=== PATIENT | female | born 1945 ===

== ENCOUNTER 2017-03-10 13:00 | Emergency (ER) | payer MEDICARE, MEDICAID ==
[2017-03-10 13:00] VITALS: BMI 26.2
[2017-03-10 13:08] VITALS: RESP 18
[2017-03-10] MEDS ORDERED: Sodium Chloride 0.9% 1,000 ML IV ONE (13:39)
[2017-03-10] MEDS ORDERED: DiphenhydrAMINE 50 mg/ml Inj IVP STA (13:40)
[2017-03-10] MEDS ORDERED: DiphenhydrAMINE 50 mg/ml Inj ONE (14:17)
[2017-03-10] MEDS ORDERED: Sodium Chloride 0.9% 100 ML ONE (14:17)
[2017-03-10 14:40] LABS: BASO % 0.8 % (0.0-2.0); EOS # 0.1 K/uL (0.0-0.7); EOS % 1.9 % (0.0-4.0); HEMATOCRIT 36.1 % (34.0-47.0); LYMPH # 0.8 K/uL (1.0-4.3); LYMPH % 16.9 % (20.0-40.0); MEAN CELL VOLUME 89.8 fL (81.0-99.0); MEAN CORPUSCULAR HEMOGLOBIN 30.8 pg (27.0-31.0); MEAN CORPUSCULAR HGB CONC 34.3 g/dL (33.0-37.0); MEAN PLATELET VOLUME 8.6 fL (7.2-11.7); MONO # 0.2 K/uL (0.0-0.8); MONO % 4.8 % (0.0-10.0); RED CELL DISTRIBUTION WIDTH 12.5 % (11.5-14.5); WHITE BLOOD COUNT 4.8 K/uL (4.8-10.8)
[2017-03-10 14:54] LABS: CHLORIDE 99 mmol/L (98-107)
[2017-03-10 14:55] LABS: POTASSIUM 4.2 mmol/L (3.6-5.2); SODIUM 136 mmol/L (132-148)
[2017-03-10 14:57] LABS: ALB/GLOB RATIO 1.3 (1.0-2.1); ALKALINE PHOSPHATASE 79 U/L (38-126); AST/SGOT 26 U/L (14-36); BILIRUBIN,TOTAL 2.4 mg/dL (0.2-1.3); CARBON DIOXIDE 26 mmol/L (22-30); GFR AFRICAN-AMERICAN > 60
[2017-03-10 14:58] LABS: ALT/SGPT 16 U/L (9-52); BLOOD UREA NITROGEN 15 mg/dL (7-17); GLUCOSE,RANDOM 93 mg/dL (65-105)
--- NOTE | 2017-03-10 15:22 | C.PDOC ---
Time Seen by Provider: 03/10/17 13:23 Chief Complaint (Nursing): Allergic Reaction History Per: Patient Onset/Duration Of Symptoms: Days (1) Current Symptoms Are (Timing): Still Present Possible Cause: Food (after eating Pork last night?), Other (after moving to her daughter's house who has a cat?) Associated Symptoms: Skin Rash, Itching, Other (diarrhea) Home/EMS Treatment: None Severity: Moderate Additional History Per: Prior Records Past Medical History Reviewed: Historical Data, Nursing Documentation, Vital Signs Vital Signs: Last Vital Signs Temp 98 F 03/10/17 13:05 Pulse 77 03/10/17 13:05 Resp 18 03/10/17 13:05 BP 145/96 H 03/10/17 13:05 Pulse Ox 97 03/10/17 13:05 - Medical History PMH: Anxiety, Arthritis, Depression, HTN, Hypercholesterolemia Surgical History: No Surg Hx Family History: States: Unknown Family Hx - Social History Hx Alcohol Use: No Hx Substance Use: No - Immunization History Hx Tetanus Toxoid Vaccination: No Hx Influenza Vaccination: No Hx Pneumococcal Vaccination: No Review Of Systems Except As Marked, All Systems Reviewed And Found Negative. Constitutional: Negative for: Fever Eyes: Positive for: Redness (itching) ENT: Positive for: Other (sneezing). Negative for: Throat Swelling Cardiovascular: Negative for: Chest Pain Respiratory: Positive for: Cough. Negative for: Shortness of Breath Gastrointestinal: Positive for: Diarrhea. Negative for: Vomiting, Abdominal Pain, Melena, Hematochezia, Hematemesis Musculoskeletal: Negative for: Neck Pain Skin: Positive for: Rash Neurological: Negative for: Weakness, Numbness, Seizures, Altered Mental Status Physical Exam - Physical Exam Appears: Non-toxic, No Acute Distress Skin: Warm, Dry, Rash (diffuse urticaria) Head: Atraumatic, Normacephalic Eye(s): bilateral: PERRL, EOMI, Eyelid Inflammation (due to rubbing eyes) Oral Mucosa: Moist, No Drooling, No Trismus Tongue: Normal Appearing Throat: No Drooling, No Mass Neck: Normal ROM, Supple Lymphatic: No Adenopathy Cardiovascular: Rhythm Regular Respiratory: Normal Breath Sounds, No Accessory Muscle Use Gastrointestinal/Abdominal: Soft, No Tenderness Back: No CVA Tenderness Extremity: Normal ROM, No Pedal Edema, No Calf Tenderness Neurological/Psych: Oriented x3, Normal Speech, Cerebellar Signs, Normal Sensation ED Course And Treatment - Laboratory Results Result Diagrams: 03/10/17 14:35 03/10/17 14:35 Lab Interpretation: No Acute Changes O2 Sat by Pulse Oximetry: 97 Pulse Ox Interpretation: Normal Progress Note: Pt feels better and wants to go home. Itching resolved. Reassessment Condition: Improved Progress - Interventions Interventions:: Observation, Intravenous fluid - Medications Administered Intravenous: Antihistamine (H-1), H-2 desmond - Data Reviewed Data Reviewed: Lab, Old records - Patient Status Patient status: Mostly improved - Continuity of Care Discussed patient case with:: Patient, ED Nurse - Patient Plan Patient Plan: Discharge, F/U with PCP Disposition Counseled Patient/Family Regarding: Studies Performed, Diagnosis, Need For Followup, Rx Given - Disposition Referrals: Salinas Go MD [Staff Provider] - Disposition: HOME/ ROUTINE Disposition Time: 15:24 Condition: IMPROVED Additional Instructions: Follow up with your doctor for further evaluation and treatment. Return to the ER if you develop fever, vomiting, abdominal pain, throat swelling, shortness of breath, worsening of symptoms or if you have any other concerns. Prescriptions: Loratadine [Claritin] 10 mg PO DAILY PRN #30 tab PRN Reason: Allergy Symptoms Instructions: Allergies (ED) - Clinical Impression Clinical Impression: Urticaria, Diarrhea
[2017-03-10 15:56] VITALS: BP 131/82; PULSE 67; TEMP 98.2; O2SAT 96
== END 2017-03-10 15:50 | disposition home or self-care (01) ==
LOC: C.ER 13:00
DX: L50.9 Urticaria, unspecified (principal); R19.7 Diarrhea, unspecified
CPT/HCPCS: 80053; 85025; 96361; 96374; 96375; 99285; J1200; J7040

== ENCOUNTER 2018-06-26 13:08 | Inpatient (IN) | payer MEDICARE, MEDICAID ==
[2018-06-26 13:08] VITALS: BMI 26.2
--- NOTE | 2018-06-26 13:59 | RAD ---
HISTORY: SOB COMPARISON: None available TECHNIQUE: Chest, one view. FINDINGS: Examination limited by habitus. LUNGS: Mild interstitial prominence may reflect edema or infection. Linear atelectasis, left mid lung zone. Trace fluid in the right fissure. Small bilateral pleural effusions. No definite pneumothorax. Please note that chest x-ray has limited sensitivity for the detection of pulmonary masses. CARDIOVASCULAR: Cardiomegaly. OSSEOUS STRUCTURES: Degenerative changes. Osseous demineralization. VISUALIZED UPPER ABDOMEN: Elevation of the right hemidiaphragm. OTHER FINDINGS: None. IMPRESSION: Cardiomegaly. Mild interstitial prominence may reflect edema or infection. Linear atelectasis, left mid lung zone. Trace fluid in the right fissure. Small bilateral pleural effusions.
[2018-06-26 14:01] LABS: BASO % 0.9 % (0.0-2.0); EOS # 0.1 K/uL (0.0-0.7); EOS % 2.9 % (0.0-4.0); HEMOGLOBIN 11.5 g/dL (11.0-16.0); LYMPH # 1.2 K/uL (1.0-4.3); LYMPH % 25.4 % (20.0-40.0); MEAN CELL VOLUME 93.3 fL (81.0-99.0); MEAN CORPUSCULAR HEMOGLOBIN 31.8 pg (27.0-31.0); MEAN CORPUSCULAR HGB CONC 34.1 g/dL (33.0-37.0); MEAN PLATELET VOLUME 8.7 fL (7.2-11.7); MONO # 0.3 K/uL (0.0-0.8); NEUT % 63.8 % (50.0-75.0); RBC 3.62 Mil/uL (3.80-5.20); RED CELL DISTRIBUTION WIDTH 13.3 % (11.5-14.5); WHITE BLOOD COUNT 4.7 K/uL (4.8-10.8)
[2018-06-26 14:09] LABS: INR 1.2; PROTHROMBIN TIME 12.7 SECONDS (9.7-12.2)
[2018-06-26 14:20] LABS: ALB/GLOB RATIO 1.3 (1.0-2.1); ALBUMIN 3.8 g/dL (3.5-5.0); ALT/SGPT 72 U/L (9-52); AST/SGOT 50 U/L (14-36); BLOOD UREA NITROGEN 9 mg/dL (7-17); CALCIUM 8.5 mg/dl (8.6-10.4); GFR NON-AFRICAN AMERICAN > 60
[2018-06-26 14:30] LABS: B-TYPE NATRIURETIC PEPTIDE 1540 pg/mL (0-900)
[2018-06-26 14:53] LABS: SQUAMOUS EPITHIAL 1 /hpf (0-5); URINE BACTERIA OCC (<OCC); URINE BILIRUBIN NEGATIVE (NEGATIVE); URINE BLOOD 1+ (NEGATIVE); URINE CLARITY Clear (Clear); URINE COLOR Straw (YELLOW); URINE GLUCOSE (UA) NORMAL (Normal); URINE LEUKOCYTE ESTERASE 3+ Leu/uL (Negative); URINE PROTEIN NEGATIVE (NEGATIVE); URINE UROBILINOGEN NORMAL mg/dL (0.2-1.0)
--- NOTE | 2018-06-26 14:53 | C.PDOC ---
History Of Present Illness 72 y/o female presents to ED c/o chest pain and shortness of breath for the last 2 days. Denies nausea, vomiting, or other complaints. Time Seen by Provider: 06/26/18 13:27 Chief Complaint (Nursing): Shortness Of Breath History Per: Patient History/Exam Limitations: no limitations Past Medical History Reviewed: Historical Data, Nursing Documentation, Vital Signs Vital Signs: Last Vital Signs Temp 98.1 F 06/26/18 16:12 Pulse 75 06/26/18 16:12 Resp 18 06/26/18 16:12 BP 120/81 06/26/18 16:12 Pulse Ox 97 06/26/18 16:15 - Medical History PMH: Anxiety, Arthritis, Depression, HTN, Hypercholesterolemia Family History: States: Unknown Family Hx - Social History Hx Alcohol Use: No Hx Substance Use: No - Immunization History Hx Tetanus Toxoid Vaccination: No Hx Influenza Vaccination: No Hx Pneumococcal Vaccination: No Review Of Systems Except As Marked, All Systems Reviewed And Found Negative. Constitutional: Negative for: Fever, Chills Cardiovascular: Positive for: Chest Pain. Negative for: Palpitations Respiratory: Positive for: Shortness of Breath. Negative for: Cough Gastrointestinal: Negative for: Nausea, Vomiting Physical Exam - Physical Exam Appears: Non-toxic, No Acute Distress Skin: Normal Color, Warm, Dry Head: Atraumatic, Normacephalic Eye(s): bilateral: Normal Inspection Oral Mucosa: Moist Neck: Supple Cardiovascular: Rhythm Irregular (irregularly irregular) Respiratory: Normal Breath Sounds, No Rales, No Rhonchi, No Wheezing Gastrointestinal/Abdominal: Soft, No Tenderness Extremity: Normal ROM, No Pedal Edema Neurological/Psych: Oriented x3, Normal Speech ED Course And Treatment - Laboratory Results Result Diagrams: 06/26/18 13:56 06/26/18 13:56 ECG: Interpreted By Me, Viewed By Me ECG Rhythm: Atrial Fibrillation Interpretation Of ECG: Poor R wave progression. No ST/T wave changes. Rate From EC O2 Sat by Pulse Oximetry: 97 Pulse Ox Interpretation: Normal Medical Decision Making Medical Decision Making: Plan: Blood work UA CXR EKG Aspirin Cardizem Pt will be admitted to telemetry for Afib. Disposition Discussed With : Merle Cuevas Counseled Patient/Family Regarding: Studies Performed, Diagnosis - Disposition Disposition: HOSPITALIZED Disposition Time: 14:52 Condition: FAIR - Clinical Impression Clinical Impression: Atrial fibrillation - Scribe Statement The provider has reviewed the documentation as recorded by the Scribe KP All medical record entries made by the Scribe were at my direction and personally dictated by me. I have reviewed the chart and agree that the record accurately reflects my personal performance of the history, physical exam, medical decision making, and the department course for this patient. I have also personally directed, reviewed, and agree with the discharge instructions and disposition.
[2018-06-26] MEDS: Enoxaparin 30 mg Syringe SC SCH (21:22)
--- NOTE | 2018-06-26 21:45 | CP.PCM.PN ---
Subjective - Date & Time of Evaluation Date of Evaluation: 06/26/18 Time of Evaluation: 21:45 - Subjective Subjective: H&P dictated #[id number] Objective - Vital Signs/Intake and Output Vital Signs (last 24 hours): Temp Pulse Resp BP Pulse Ox 98.1 F 92 H 20 122/84 98 06/26/18 16:39 06/26/18 16:39 06/26/18 16:39 06/26/18 16:39 06/26/18 16:39 - Medications Medications: Current Medications Aspirin (Aspirin) 325 mg PO DAILY [facility] Diltiazem HCl (Cardizem) 60 mg PO QID [facility] Last Admin: 06/26/18 21:22 Dose: 60 mg Enoxaparin Sodium (Lovenox) 30 mg SC Q12 [facility] Last Admin: 06/26/18 21:22 Dose: 30 mg Memantine (Namenda) 5 mg PO DAILY [facility] Rosuvastatin Calcium (Crestor) 5 mg PO HS [facility] Last Admin: 06/26/18 21:22 Dose: 5 mg - Labs Labs: 06/26/18 13:56 06/26/18 13:56 PT 12.7 SECONDS (9.7-12.2) H 06/26/18 13:56 INR 1.2 06/26/18 13:56 APTT 30 SECONDS (21-34) 06/26/18 13:56
--- NOTE | 2018-06-26 22:10 | CP.PCM.CON ---
History of Present Illness - History of Present Illness History of Present Illness: 72 F with hx of HTN admitted with chest pain and rapid A Fib Chief Complaint (Nursing): Shortness Of Breath History Per: Patient History/Exam Limitations: no limitations Past Medical History Reviewed: Historical Data, Nursing Documentation, Vital Signs Vital Signs: Last Vital Signs Temp 98.1 F 06/26/18 16:12 Pulse 75 06/26/18 16:12 Resp 18 06/26/18 16:12 BP 120/81 06/26/18 16:12 Pulse Ox 97 06/26/18 16:15 - Medical History PMH: Anxiety, Arthritis, Depression, HTN, Hypercholesterolemia Family History: States: Unknown Family Hx - Social History Hx Alcohol Use: No Hx Substance Use: No - Immunization History Hx Tetanus Toxoid Vaccination: No Hx Influenza Vaccination: No Hx Pneumococcal Vaccination: No Review Of Systems Except As Marked, All Systems Reviewed And Found Negative. Constitutional: Negative for: Fever, Chills Cardiovascular: Positive for: Chest Pain. Negative for: Palpitations Respiratory: Positive for: Shortness of Breath. Negative for: Cough Gastrointestinal: Negative for: Nausea, Vomiting Physical Exam - Physical Exam Appears: Non-toxic, No Acute Distress Skin: Normal Color, Warm, Dry Head: Atraumatic, Normacephalic Eye(s): bilateral: Normal Inspection Oral Mucosa: Moist Neck: Supple Cardiovascular: Rhythm Irregular (irregularly irregular) Respiratory: Normal Breath Sounds, No Rales, No Rhonchi, No Wheezing Gastrointestinal/Abdominal: Soft, No Tenderness Extremity: Normal ROM, No Pedal Edema Neurological/Psych: Oriented x3, Normal Speech Past Patient History - Infectious Disease Hx of Infectious Diseases: None - Past Social History Smoking Status: Never Smoked - CARDIAC Hx Hypercholesterolemia: Yes Hx Hypertension: Yes - NEUROLOGICAL Hx Vertigo: Yes - MUSCULOSKELETAL/RHEUMATOLOGICAL Hx Arthritis: Yes - PSYCHIATRIC Hx Anxiety: Yes Hx Depression: Yes Hx Substance Use: No - SURGICAL HISTORY Hx Surgeries: No - ANESTHESIA Hx Anesthesia: No Meds Allergies/Adverse Reactions: Allergies Allergy/AdvReac Type Severity Reaction Status Date / Time No Known Allergies Allergy Verified 06/26/18 13:20 - Medications Medications: Current Medications Aspirin (Aspirin) 325 mg PO DAILY [facility] Diltiazem HCl (Cardizem) 60 mg PO QID [facility] Last Admin: 06/26/18 21:22 Dose: 60 mg Enoxaparin Sodium (Lovenox) 30 mg SC Q12 [facility] Last Admin: 06/26/18 21:22 Dose: 30 mg Memantine (Namenda) 5 mg PO DAILY [facility] Rosuvastatin Calcium (Crestor) 5 mg PO HS [facility] Last Admin: 06/26/18 21:22 Dose: 5 mg Results - Vital Signs Recent Vital Signs: Last Vital Signs Temp 98.1 F 06/26/18 16:39 Pulse 92 H 06/26/18 16:39 Resp 20 06/26/18 16:39 BP 122/84 06/26/18 16:39 Pulse Ox 98 06/26/18 16:39 - Labs Result Diagrams: 06/26/18 13:56 06/26/18 13:56 Labs: Laboratory Results - last 24 hr 06/26/18 06/26/18 06/26/18 13:56 13:56 13:56 WBC 4.7 L RBC 3.62 L Hgb 11.5 Hct 33.7 L MCV 93.3 MCH 31.8 H MCHC 34.1 RDW 13.3 Plt Count 188 MPV 8.7 Neut % (Auto) 63.8 Lymph % (Auto) 25.4 [place] % (Auto) 7.0 Eos % (Auto) 2.9 Baso % (Auto) 0.9 Neut # (Auto) 3.0 Lymph # (Auto) 1.2 [place] # (Auto) 0.3 Eos # (Auto) 0.1 Baso # (Auto) 0.0 PT 12.7 H INR 1.2 APTT 30 Sodium 142 Potassium 4.0 Chloride 106 Carbon Dioxide 28 Anion Gap 12 BUN 9 Creatinine 0.5 L Est GFR ( Amer) > 60 Est GFR (Non-Af Amer) > 60 Random Glucose 106 H Calcium 8.5 L Magnesium 2.0 Total Bilirubin 2.8 H AST 50 H D ALT 72 H D Alkaline Phosphatase 70 Troponin I < 0.0120 NT-Pro-B Natriuret Pep 1540 H Total Protein 6.7 Albumin 3.8 Globulin 2.9 Albumin/Globulin Ratio 1.3 Urine Color Urine Clarity Urine pH Ur Specific [place] Urine Protein Urine Glucose (UA) Urine Ketones Urine Blood Urine Nitrate Urine Bilirubin Urine Urobilinogen Ur Leukocyte Esterase Urine WBC (Auto) Urine RBC (Auto) Ur Squamous Epith Cells Urine Bacteria 06/26/18 06/26/18 14:43 20:12 WBC RBC Hgb Hct MCV MCH MCHC RDW Plt Count MPV Neut % (Auto) Lymph % (Auto) [place] % (Auto) Eos % (Auto) Baso % (Auto) Neut # (Auto) Lymph # (Auto) [place] # (Auto) Eos # (Auto) Baso # (Auto) PT INR APTT Sodium Potassium Chloride Carbon Dioxide Anion Gap BUN Creatinine Est GFR ( Amer) Est GFR (Non-Af Amer) Random Glucose Calcium Magnesium Total Bilirubin AST ALT Alkaline Phosphatase Troponin I < 0.0120 NT-Pro-B Natriuret Pep Total Protein Albumin Globulin Albumin/Globulin Ratio Urine Color Straw Urine Clarity Clear Urine pH 7.0 Ur Specific [place] 1.003 Urine Protein Negative Urine Glucose (UA) Normal Urine Ketones Negative Urine Blood 1+ H Urine Nitrate Negative Urine Bilirubin Negative Urine Urobilinogen Normal Ur Leukocyte Esterase 3+ H Urine WBC (Auto) 13 H Urine RBC (Auto) 6 H Ur Squamous Epith Cells 1 Urine Bacteria Occ H Assessment & Plan - Assessment and Plan (Free Text) Assessment: A Fib HTN Chest pain Dyspnea Check Trop, ECHO, TSH Anticoagulation
[2018-06-27 07:27] LABS: BASO % 0.9 % (0.0-2.0); EOS # 0.2 K/uL (0.0-0.7); EOS % 4.9 % (0.0-4.0); HEMOGLOBIN 11.3 g/dL (11.0-16.0); LYMPH # 1.1 K/uL (1.0-4.3); LYMPH % 23.6 % (20.0-40.0); MEAN CELL VOLUME 93.3 fL (81.0-99.0); MEAN CORPUSCULAR HEMOGLOBIN 31.6 pg (27.0-31.0); MEAN CORPUSCULAR HGB CONC 33.9 g/dL (33.0-37.0); MEAN PLATELET VOLUME 9.3 fL (7.2-11.7); MONO # 0.3 K/uL (0.0-0.8); MONO % 7.7 % (0.0-10.0); NEUT # 2.8 K/uL (1.8-7.0); NEUT % 62.9 % (50.0-75.0); RBC 3.58 Mil/uL (3.80-5.20); WHITE BLOOD COUNT 4.5 K/uL (4.8-10.8)
[2018-06-27 07:34] LABS: ALB/GLOB RATIO 1.3 (1.0-2.1); ALBUMIN 3.7 g/dL (3.5-5.0); ALT/SGPT 66 U/L (9-52); AST/SGOT 38 U/L (14-36); BLOOD UREA NITROGEN 7 mg/dL (7-17); CALCIUM 8.8 mg/dl (8.6-10.4); GFR NON-AFRICAN AMERICAN > 60; HDL CHOLESTEROL 50 mg/dL (30-70)
[2018-06-27 07:46] LABS: LDL CHOLESTEROL 77 mg/dL (0-129)
--- NOTE | 2018-06-27 07:49 | HP ---
CHIEF COMPLAINT: The patient had near syncopal episode yesterday while she was trying to pickup something from the floor associated with shortness of breath and felt a chest pain. Sent by PMD for evaluation of AFib with rapid ventricular rate. HISTORY OF PRESENT ILLNESS: Ms. Freeman is a 72-year-old female with past medical history of hypertension, hyperlipidemia, osteoarthritis, osteoporosis, dementia, vertigo who has been following up with Dr. Go as primary care physician. Went to office for the first time for evaluation as the patient almost had a syncopal episode last night. As per the patient yesterday night, the patient was trying to get something from the floor. She bent down and felt very dizzy, blacked out, and she claims that she fell down. Then she had the dizziness. She felt very short of breath. Not able to catch her. She was in bed all day yesterday. Denied any chest pain associated with it but claims that she gets this dizzy spells intermittently. Last episode was about a month ago. So the patient went to office for evaluation, and the patient was found to be in AFib with rapid ventricular rate, and the patient was sent to ED for further evaluation. In the emergency room, the patient was also found to be in atrial fibrillation with rapid ventricular rate; and the patient was given Cardizem in the ED, rate was slightly controlled, and the patient is being admitted for further evaluation. When I examined, the patient denies any headache, dizziness. Denies any chest pain, shortness of breath, or wheezing. Denies any nausea, vomiting, abdominal pain, diarrhea, or constipation. Denies any urinary complaints but complaints of bilateral leg pains. She claims that she is not able to walk because of the lower extremity pain. Denies any other neurological symptoms. PAST MEDICAL HISTORY: As described hypertension, hyperlipidemia, dementia, vertigo, osteoarthritis, osteoporosis. PAST SURGICAL HISTORY: Underwent surgery for varicose veins in 1975. FAMILY HISTORY: Coronary artery disease in mother and grandmother who from coronary artery disease. Mother at age 59. Father had history of coronary artery disease and stomach CA. He at age 75. PERSONAL HISTORY: She is having two daughters. 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 SOCIAL HISTORY: She is an ex-smoker, quit smoking about 45 years ago. Smokes two packs per day for 20 years. Denies any alcohol. Denies any other drug abuse. ALLERGIES: NO KNOWN DRUG ALLERGIES BUT SHE CLAIMS SHE DEVELOPS ITCHING WITH SEAFOOD. HOME MEDICATIONS: Include Norvasc 10 mg daily, Namenda 5 mg daily, Antivert 12.5 mg p.o. every 12 hours p.r.n., Claritin 10 mg daily, alendronate 150 mg p.o. once a month, vitamin D daily, vitamin D with calcium, Lipitor 10 mg daily, aspirin 81 mg daily. REVIEW OF SYSTEMS: As described in history of present illness. All other systems reviewed and were found to be negative on examination. PHYSICAL EXAMINATION: GENERAL: Elderly female, lying in bed, in no acute distress, went to the emergency room. VITAL SIGNS: Her blood pressure was 141/99, pulse 129, respirations 20, temperature 97.8 degrees Fahrenheit, O2 sat is 97/%. After Cardizem, her pulse rate decreased to 92. HEENT: Pupils equal, round, and reacting to light and accommodation. Extraocular muscles intact. No icterus. No pallor. No oral thrush. No pharyngeal congestion. NECK: Supple. No JVD. LUNGS: Bilateral vesicular breath sounds. No wheezing. No rhonchi. CVS: S1, S2 present. Irregularly irregular. ABDOMEN: Soft. Nontender. Bowel sounds present. No guarding. No rigidity. No rebound tenderness noted. ELECTRICIAN SOUND: Alert, awake, oriented x3. No focal deficits noted. EXTREMITIES: No edema. Palpable peripheral pulses. Varicose veins noted. LABORATORY DATA: Labs done from the emergency room: WBC 4.7, hemoglobin 11.5, hematocrit 33.7, platelets 188,000, PT 12.7, INR 1.2, PTT 30. Sodium 142, potassium 4.2, chloride 106, bicarb 28, BUN 9, creatinine 0.5, glucose 106. Calcium 8.5. Magnesium 2, bilirubin 2.8. AST 50, ALT 72, alkaline phosphatase 70. Cardiac enzymes x2 negative. ProBNP 1540, total protein 6.7, albumin 3.8. UA, specific gravity 1.003, pH 7, blood 1+, leukocyte esterase 3+, wbc 13, rbc 6. Chest x-ray consistent with cardiomegaly. Mild interstitial prominence may reflect edema or infection, linear atelectasis, left mid lung zone, in the right fissure, small bilateral effusion. EKG consistent with atrial fibrillation with rapid ventricular rate at 1.5 beats per minute. ASSESSMENT AND PLAN: Elderly female with history of hypertension, hyperlipidemia, osteoarthritis, osteoporosis, dementia, vertigo. The patient came into the emergency room after the patient had near syncopal episode associated with dizziness and shortness of breath. The patient was found to be having atrial fibrillation with rapid ventricular rate at PMD's office, and the patient is being brought to the emergency room for further evaluation in the ED. The patient was found to be in atrial fibrillation with rapid ventricular rate and the patient is being admitted for further management. 1. Atrial fibrillation with rapid ventricular rate, now rate is better controlled after receiving Cardizem. 2. Syncope versus near syncopal episode, rule out secondary to vasovagal or rule out other causes. Rule out cardiac arrhythmias causing syncope. 3. Hypertension. 4. Hyperlipidemia. 5. Dementia. 6. Osteoarthritis. 7. Osteoporosis history. 8. Abnormal liver function test, questionable etiology. 9. Abnormal urinalysis. PLAN: The patient is being admitted to cardiac telemetry. We will do serial cardiac enzymes, serial EKGs. We will check echocardiogram. We will give Cardizem 30 mg p.o. every 6 hours. We will continue with her home medications. We will give Lovenox. We will obtain Cardiology evaluation. We will give aspirin 325 mg daily and Lipitor 10 mg daily. We will check CT scan of the head and carotid Doppler. We will check hepatitis serology and ultrasound of the abdomen. We will repeat labs in a.m. We will check TSH level and lipid profile. We will add further recommendation as her clinical course progresses. Merle Cuevas MD
[2018-06-27 08:10] LABS: HEPATITIS B SURFACE AG Negative (NEGATIVE)
[2018-06-27 08:11] LABS: HEPATITIS B SURFACE AG Negative (NEGATIVE)
[2018-06-27 08:15] LABS: HEPATITIS B CORE AB NEGATIVE (NEGATIVE)
[2018-06-27 08:17] LABS: HEPATITIS A IGM NEGATIVE (NEGATIVE); HEPATITIS B CORE AB NEGATIVE (NEGATIVE)
[2018-06-27 08:27] LABS: HEPATITIS C ANTIBODY NEGATIVE (NEGATIVE)
[2018-06-27 08:29] LABS: HEPATITIS C ANTIBODY NEGATIVE (NEGATIVE)
[2018-06-27 08:43] LABS: FOLATE > 20.0 ng/mL
--- NOTE | 2018-06-27 09:17 | CT ---
Date of service: 06/27/2018 PROCEDURE: CT HEAD WITHOUT CONTRAST. HISTORY: syncope COMPARISON: CT dated 10/04/2015 TECHNIQUE: Axial computed tomography images were obtained through the head/brain without intravenous contrast. Radiation dose: Total exam DLP = 1190 mGy-cm. This CT exam was performed using one or more of the following dose reduction techniques: Automated exposure control, adjustment of the mA and/or kV according to patient size, and/or use of iterative reconstruction technique. FINDINGS: HEMORRHAGE: No intracranial hemorrhage. BRAIN: Atrophy. Scattered focal lucencies in the subcortical and periventricular white matter suggestive for chronic microvascular ischemic change. Persistent lacunar infarct in the left external capsule. Additional interval appearance of a lacunar infarct in the right caudate. VENTRICLES: Unremarkable. No hydrocephalus. CALVARIUM: Unremarkable. PARANASAL SINUSES: Unremarkable as visualized. No significant inflammatory changes. MASTOID AIR CELLS: Unremarkable as visualized. No inflammatory changes. OTHER FINDINGS: None. IMPRESSION: Chronic microvascular ischemic changes. Persistent lacunar infarct in the left external capsule. Additional interval appearance of a lacunar infarct in the right caudate. If there is concern for acute ischemic change, consider correlation with MRI.
--- NOTE | 2018-06-27 09:58 | CP.PCM.PN ---
Subjective - Date & Time of Evaluation Date of Evaluation: 06/27/18 Time of Evaluation: 09:58 - Subjective Subjective: Progress note dictated # [id number] Objective - Vital Signs/Intake and Output Vital Signs (last 24 hours): Temp Pulse Resp BP Pulse Ox 98.3 F 111 H 18 141/83 94 L 06/27/18 07:10 06/27/18 08:00 06/27/18 07:10 06/27/18 07:10 06/27/18 07:10 Intake and Output: 06/27/18 06/27/18 06:59 18:59 Intake Total 130 Balance 130 - Medications Medications: Current Medications Aspirin (Aspirin) 325 mg PO DAILY [facility] Diltiazem HCl (Cardizem) 60 mg PO QID [facility] Last Admin: 06/26/18 21:22 Dose: 60 mg Enoxaparin Sodium (Lovenox) 30 mg SC Q12 [facility] Last Admin: 06/26/18 21:22 Dose: 30 mg Memantine (Namenda) 5 mg PO DAILY [facility] Rosuvastatin Calcium (Crestor) 5 mg PO HS [facility] Last Admin: 06/26/18 21:22 Dose: 5 mg - Labs Labs: 06/27/18 07:00 06/27/18 07:00 PT 12.7 SECONDS (9.7-12.2) H 06/26/18 13:56 INR 1.2 06/26/18 13:56 APTT 30 SECONDS (21-34) 06/26/18 13:56
[2018-06-27] MEDS: Enoxaparin 30 mg Syringe SC SCH (10:20)
--- NOTE | 2018-06-27 12:40 | CARD ---
APPROVED REPORT Date of service: 06/27/2018 EXAM: Two-dimensional and M-mode echocardiogram with Doppler and color Doppler. INDICATION Dizziness and Vertigo Atrial Fibrillation 2D DIMENSIONS IVSd0.8 (0.7-1.1cm)LVDd5.2 (3.9-5.9cm) PWd1.1 (0.7-1.1cm)LVDs4.1 (2.5-4.0cm) FS (%) 21.6 %LVEF (%)45.0 (>50%) M-Mode DIMENSIONS Left Atrium (MM)5.09 (2.5-4.0cm)IVSd1.23 (0.7-1.1cm) Aortic Root3.35 (2.2-3.7cm)LVDd5.16 (4.0-5.6cm) Aortic Cusp Exc.1.87 (1.5-2.0cm)PWd1.06 (0.7-1.1cm) FS (%) 28 %LVDs3.72 (2.0-3.8cm) TAPSE20.40 cmLVEF (%)50 (>50%) Mitral Valve MV E Zspeifwc654.7cm/sE/A ratio0.0PISA0.59 cm TDI E/Lateral E'0.0E/Medial E'0.0 Tricuspid Valve TR Peak [id number]/sTR Peak [id number] LEFT VENTRICLE The left ventricle is normal size. There is mild concentric left ventricular hypertrophy. The Ejection Fraction is 35-40%. given dillated la,a,fib,moderate pulmonary hypertension & moderately elevated la volume index is suggestive of moderately severe lv diastolic dysfunction in presence of lv systolic dysfunction. RIGHT VENTRICLE The right ventricle is normal size. The right ventricular systolic function is normal. ATRIA The left atrium is severely dilated. The right atrium is mildly dilated. There is a small membranous type atrial septal defect. AORTIC VALVE The aortic valve is trileaflet. The aortic valve is calcified but opens well. No aortic regurgitation is present. MITRAL VALVE The mitral valve is mildly thickened. Mitral annular calcification is moderate. Mitral regurgitation is moderate to severe. TRICUSPID VALVE The tricuspid valve is normal in structure. There is moderate tricuspid regurgitation. Right ventricular systolic pressure is estimated at 50 mmHg. There is moderate pulmonary hypertension. PULMONIC VALVE The pulmonary valve is normal in structure. There is mild pulmonic valvular regurgitation. GREAT VESSELS The aortic root is normal size. The aortic root displays mild sclerocalcific changes of the aortic root. Dilated IVC with poor inspiration collapse is consistent with elevated right atrial pressure. PERICARDIAL EFFUSION There is no pericardial effusion. <Conclusion> The left ventricle is normal size. There is mild concentric left ventricular hypertrophy. The Ejection Fraction is 35-40%. given dillated la,a,fib,moderate pulmonary hypertension & moderately elevated la volume index is suggestive of moderately severe lv diastolic dysfunction in presence of lv systolic dysfunction. The left atrium is severely dilated. The right atrium is mildly dilated. There is a small membranous type atrial septal defect. Mitral regurgitation is moderate to severe. There is moderate tricuspid regurgitation. Right ventricular systolic pressure is estimated at 50 mmHg. There is moderate pulmonary hypertension. The aortic root is normal size. The aortic root displays mild sclerocalcific changes of the aortic root. Dilated IVC with poor inspiration collapse is consistent with elevated right atrial pressure.
--- NOTE | 2018-06-27 12:51 | CARD ---
APPROVED REPORT Date of service: 06/26/2018 EKG Measurement Heart [id number] <Conclusion> Atrial fibrillation with rapid ventricular response Cannot rule out Anterior infarct, age undetermined Abnormal ECG
--- NOTE | 2018-06-27 13:23 | US ---
Abdominal ultrasound History: Abnormal liver enzymes. Comparison: None available. Technique: Real-time sonography was performed through the abdomen. Findings: Liver: 15.2 centimeters in length. Increased echogenicity of the hepatic parenchymal cortex suggestive for fatty infiltration versus hepatic parenchymal disease. Clinical correlation. Gallbladder: No calculi or sludge. Normal wall thickness of 2 millimeters. Negative sonographic Zafar's sign. Common bile duct measures 5 millimeters, within normal limits. Limited visualization of the pancreas. Spleen measures 12.4 centimeters in length, mildly prominent. Limited visualization of the aorta and IVC. Right kidney: 9.9 x 5.0 x 5.2 centimeters. No calculi or hydronephrosis. Left Kidney: 11.4 x 5.0 x 5.1 centimeters. No calculi or hydronephrosis. Impression: Increased echogenicity of the hepatic parenchymal cortex suggestive for fatty infiltration versus hepatic parenchymal disease. Clinical correlation. Partially contracted gallbladder. Limited visualization of the pancreas. Mildly prominent spleen measuring up to 12.4 centimeters. Small right pleural effusion.
[2018-06-27 16:50] VITALS: RESP 20
[2018-06-27] MEDS ORDERED: Enoxaparin 30 mg Syringe SC SCH (16:59)
--- NOTE | 2018-06-27 21:28 | PN ---
DATE: 06/27/2018 SUBJECTIVE: The patient was seen and examined at bedside. The patient offers no new complaints. Denies any chest pains, shortness of breath, or wheezing. Denies any other complaints. PHYSICAL EXAMINATION: GENERAL: Elderly female, lying in bed, in no acute distress. VITAL SIGNS: Blood pressure 141/83, pulse 89, respirations 18, temperature 98.3 degrees Fahrenheit, and O2 saturation is 94% on room air. HEENT: Pupils equal, round, and reacting to light and accommodation. Extraocular muscles are intact. No icterus, no pallor, no oral thrush, and no pharyngeal congestion. NECK: Supple, no JVD. LUNGS: Bilateral vesicular breath sounds. No wheezing, no rhonchi. CVS: S1 and S2 present, irregular. ABDOMEN: Soft and nontender. Bowel sounds present. No guarding, no rigidity, no rebound tenderness noted. CENTRAL NERVOUS SYSTEM: Alert and awake, oriented x 3. No focal deficits noted. EXTREMITIES: No edema. Palpable peripheral pulses. MEDICATIONS: Include aspirin 325 mg daily, vitamin B12 of 1000 mcg daily, Cardizem 60 mg p.o. 4 times a day, Lovenox 30 mg subcutaneously every 12 hours, Namenda 5 mg daily, Crestor 5 mg p.o at bedtime. LABORATORY DATA: Labs from this morning, WBC 4.5, hemoglobin 11.3, hematocrit 33.4, platelets 192. Sodium 142, potassium 4, chloride 105, bicarbonate 30, BUN 7, creatinine 0.6, glucose 102, calcium 8.8, phosphorus 3.6, magnesium 2.1, total bilirubin 3, AST 38, ALT 66, alkaline phosphatase 73, total protein 6.6, albumin 3.7, globulin 2.9, triglycerides 54, cholesterol 149, LDL 77, HDL 50, vitamin B12 of 183, folate more than 20, TSH 3.29. Hepatitis serology is negative. Abdominal ultrasound consistent with increased echogenicity of hepatic parenchymal cortex suggestive of fatty infiltration versus hepatic parenchymal disease, partially contracted gallbladder, limited visualization of the pancreas, mildly prominent spleen, measuring up to 12.4 cm, small right pleural effusion. Carotid ultrasound is pending. Echocardiogram, left ventricle normal size, mild concentric LVH, ejection fraction is 35% to 40%, dilated LA, AFib, moderate pulmonary hypertension, and moderately elevated left atrial volume index suggestive of moderately severe left ventricular diastolic dysfunction and presence of LV systolic dysfunction, left atrium severely dilated, right atrium mildly dilated, small membranous type atrioseptal defect, [id number] mitral regurgitation, moderate tricuspid regurgitation, moderate pulmonary hypertension, aortic root displaced mild sclerocalcific changes. ASSESSMENT AND PLAN: An elderly female with history of hypertension, hyperlipidemia, dementia, vertigo, osteoarthritis, osteoporosis, admitted for new onset atrial fibrillation with rapid ventricular rate, syncope, abnormal liver tests. Head CT consistent with chronic microvascular ischemic changes, persistent lacunar infarct in the left external capsule, additional interval appearance of lacunar infarct in the right caudate. We will continue with Cardizem, supplement B12. We will hold agents as the patient's liver tests are abnormal. We will continue with Cardizem. Rate is now better controlled. We will obtain Neurology and GI consults. Follow up with carotid Doppler results. Follow up with Cardiology. Merle Cuevas MD
[2018-06-27] MEDS: Enoxaparin 100 mg Syringe SC SCH (21:47)
--- NOTE | 2018-06-28 00:18 | CP.PCM.PN ---
Subjective - Date & Time of Evaluation Date of Evaluation: 06/27/18 Time of Evaluation: 13:20 - Subjective Subjective: Patient seen and evaluated A Fib and chest pain cardiomyopathy with EF <30% Full anticoagulation for A Fib Cardiac cath Friday afternoon NPO after breakfast Friday morning Review Of Systems Except As Marked, All Systems Reviewed And Found Negative. Constitutional: Negative for: Fever, Chills Cardiovascular: Positive for: Chest Pain. Negative for: Palpitations Respiratory: Positive for: Shortness of Breath. Negative for: Cough Gastrointestinal: Negative for: Nausea, Vomiting Physical Exam - Physical Exam Appears: Non-toxic, No Acute Distress Skin: Normal Color, Warm, Dry Head: Atraumatic, Normacephalic Eye(s): bilateral: Normal Inspection Oral Mucosa: Moist Neck: Supple Cardiovascular: Rhythm Irregular (irregularly irregular) Respiratory: Normal Breath Sounds, No Rales, No Rhonchi, No Wheezing Gastrointestinal/Abdominal: Soft, No Tenderness Extremity: Normal ROM, No Pedal Edema Neurological/Psych: Oriented x3, Normal Speech Objective - Vital Signs/Intake and Output Vital Signs (last 24 hours): Temp Pulse Resp BP Pulse Ox 98.1 F 116 H 20 155/97 H 95 06/27/18 15:00 06/27/18 16:00 06/27/18 15:00 06/27/18 15:00 06/27/18 15:00 Intake and Output: 06/27/18 06/28/18 18:59 06:59 Intake Total 400 Balance 400 - Medications Medications: Current Medications Aspirin (Ecotrin) 81 mg PO DAILY [facility] Cyanocobalamin (Vitamin B12 1000 Mcg/Ml Inj) 1,000 mcg IM DAILY [facility] Stop: 07/03/18 10:01 Last Admin: 06/27/18 10:20 Dose: 1,000 mcg Diltiazem HCl (Cardizem) 60 mg PO QID [facility] Last Admin: 06/27/18 21:47 Dose: 60 mg Enoxaparin Sodium (Lovenox) 90 mg SC Q12 [facility] Last Admin: 06/27/18 21:47 Dose: 90 mg Memantine (Namenda) 5 mg PO DAILY [facility] Last Admin: 06/27/18 10:20 Dose: 5 mg Pneumococcal Polyvalent Vaccine (Pneumovax 23 Vaccine) 0.5 ml IM .ONCE ONE Stop: 06/28/18 12:01 Rosuvastatin Calcium (Crestor) 5 mg PO HS [facility] Last Admin: 06/27/18 21:47 Dose: 5 mg - Labs Labs: 06/27/18 07:00 06/27/18 07:00 PT 12.7 SECONDS (9.7-12.2) H 06/26/18 13:56 INR 1.2 06/26/18 13:56 APTT 30 SECONDS (21-34) 06/26/18 13:56 Assessment and Plan - Assessment and Plan (Free Text) Assessment: A Fib Exertional chest pain and dyspnea CVA Cardiomyopathy with EF of <35% Cath Friday afternoon
--- NOTE | 2018-06-28 00:36 | CP.PCM.CON ---
History of Present Illness - History of Present Illness History of Present Illness: 72 yr old woman, right handed, who was in her home when she bent over and suddenly, briefly lost consciousness. She does not know for how long, but there was no weakness or aphasia after the event. She came to [facility] (formerly [facility]) and was found to have new onset atrial fibrillation.Neuroimaging showed that there was an old lacunar infarct but no new strokes or hemorrhages. Miss freeman denies any prior strokes, but does say she often feels faint. ROS: as above. PMH/PSH: hypertension FH/SH: Originally from [place]. no tobacco, no etoh. All :nkda. On exam: Normal neurological examination. Miss Freeman gave me a good history and i did not find any neurological deficits. Past Patient History - Infectious Disease Hx of Infectious Diseases: None - Past Medical History & Family History Past Medical History?: Yes - Past Social History Smoking Status: Never Smoked - CARDIAC Hx Hypercholesterolemia: Yes Hx Hypertension: Yes - PULMONARY Hx Respiratory Disorders: No - NEUROLOGICAL Hx Vertigo: Yes - HEENT Hx HEENT Problems: No - RENAL Hx Chronic Kidney Disease: No - ENDOCRINE/METABOLIC Hx Endocrine Disorders: No - HEMATOLOGICAL/ONCOLOGICAL Hx Blood Disorders: No - INTEGUMENTARY Hx Dermatological Problems: No - MUSCULOSKELETAL/RHEUMATOLOGICAL Hx Arthritis: Yes - GENITOURINARY/GYNECOLOGICAL Hx Genitourinary Disorders: No - PSYCHIATRIC Hx Anxiety: Yes Hx Depression: Yes Hx Substance Use: No - SURGICAL HISTORY Hx Surgeries: No - ANESTHESIA Hx Anesthesia: No Meds Allergies/Adverse Reactions: Allergies Allergy/AdvReac Type Severity Reaction Status Date / Time No Known Allergies Allergy Verified 06/26/18 13:20 - Medications Medications: Current Medications Aspirin (Ecotrin) 81 mg PO DAILY [facility] Cyanocobalamin (Vitamin B12 1000 Mcg/Ml Inj) 1,000 mcg IM DAILY [facility] Stop: 07/03/18 10:01 Last Admin: 06/27/18 10:20 Dose: 1,000 mcg Diltiazem HCl (Cardizem) 60 mg PO QID [facility] Last Admin: 06/27/18 21:47 Dose: 60 mg Enoxaparin Sodium (Lovenox) 90 mg SC Q12 [facility] Last Admin: 06/27/18 21:47 Dose: 90 mg Memantine (Namenda) 5 mg PO DAILY [facility] Last Admin: 06/27/18 10:20 Dose: 5 mg Pneumococcal Polyvalent Vaccine (Pneumovax 23 Vaccine) 0.5 ml IM .ONCE ONE Stop: 06/28/18 12:01 Rosuvastatin Calcium (Crestor) 5 mg PO HS [facility] Last Admin: 06/27/18 21:47 Dose: 5 mg Results - Vital Signs Recent Vital Signs: Last Vital Signs Temp 98.1 F 06/27/18 15:00 Pulse 116 H 06/27/18 16:00 Resp 20 06/27/18 15:00 BP 155/97 H 06/27/18 15:00 Pulse Ox 95 06/27/18 15:00 - Labs Result Diagrams: 06/27/18 07:00 06/27/18 07:00 Labs: Laboratory Results - last 24 hr 06/27/18 06/27/18 06/27/18 02:57 07:00 07:00 WBC 4.5 L RBC 3.58 L Hgb 11.3 Hct 33.4 L MCV 93.3 MCH 31.6 H MCHC 33.9 RDW 13.0 Plt Count 192 MPV 9.3 Neut % (Auto) 62.9 Lymph % (Auto) 23.6 [place] % (Auto) 7.7 Eos % (Auto) 4.9 H Baso % (Auto) 0.9 Neut # (Auto) 2.8 Lymph # (Auto) 1.1 [place] # (Auto) 0.3 Eos # (Auto) 0.2 Baso # (Auto) 0.0 Sodium 142 Potassium 4.0 Chloride 105 Carbon Dioxide 30 Anion Gap 11 BUN 7 Creatinine 0.6 L Est GFR ( Amer) > 60 Est GFR (Non-Af Amer) > 60 Random Glucose 102 Calcium 8.8 Phosphorus 3.6 Magnesium 2.1 Total Bilirubin 3.0 H AST 38 H D ALT 66 H Alkaline Phosphatase 73 Troponin I < 0.0120 Total Protein 6.6 Albumin 3.7 Globulin 2.9 Albumin/Globulin Ratio 1.3 Triglycerides 54 Cholesterol 149 LDL Cholesterol Direct 77 HDL Cholesterol 50 Vitamin B12 183 L Folate > 20.0 TSH 3rd Generation 3.29 RPR Hepatitis A IgM Ab Hepatitis A Ab Total Antibody neg Hep Bs Antigen Negative Hep Bs Antibody Hep B Core IgM Ab Negative Hepatitis C Antibody Negative 06/27/18 06/27/18 06/27/18 07:00 07:00 07:00 WBC RBC Hgb Hct MCV MCH MCHC RDW Plt Count MPV Neut % (Auto) Lymph % (Auto) [place] % (Auto) Eos % (Auto) Baso % (Auto) Neut # (Auto) Lymph # (Auto) [place] # (Auto) Eos # (Auto) Baso # (Auto) Sodium Potassium Chloride Carbon Dioxide Anion Gap BUN Creatinine Est GFR ( Amer) Est GFR (Non-Af Amer) Random Glucose Calcium Phosphorus Magnesium Total Bilirubin AST ALT Alkaline Phosphatase Troponin I Total Protein Albumin Globulin Albumin/Globulin Ratio Triglycerides Cholesterol LDL Cholesterol Direct HDL Cholesterol Vitamin B12 Folate TSH 3rd Generation RPR Nonreactive Hepatitis A IgM Ab Negative Hepatitis A Ab Total Hep Bs Antigen Negative Hep Bs Antibody Negative Hep B Core IgM Ab Negative Hepatitis C Antibody Negative Assessment & Plan - Assessment and Plan (Free Text) Assessment: 72 yr old woman with new onset atrial fibrillation, who most likely did not have a stroke. Case discussed with Dr. Joshi. HE will be performing cath on friday, and starting on lovenox with eventual plan for eloquiss. Our team will follow. Thank you DR. harrell
[2018-06-28] MEDS ORDERED: Pneumococcal 23-Valent Vaccine IM ONE (10:00)
[2018-06-28] MEDS: Enoxaparin 100 mg Syringe SC SCH ×2 (10:07→22:00)
--- NOTE | 2018-06-28 12:38 | CP.PCM.PN ---
Subjective - Date & Time of Evaluation Date of Evaluation: 06/28/18 Time of Evaluation: 12:38 - Subjective Subjective: Progress note dictated #[id number] Objective - Vital Signs/Intake and Output Vital Signs (last 24 hours): Temp Pulse Resp BP Pulse Ox 97.7 F 71 20 121/84 96 06/28/18 07:00 06/28/18 10:05 06/28/18 07:00 06/28/18 10:05 06/28/18 07:00 - Medications Medications: Current Medications Aspirin (Ecotrin) 81 mg PO DAILY [facility] Last Admin: 06/28/18 10:06 Dose: 81 mg Cyanocobalamin (Vitamin B12 1000 Mcg/Ml Inj) 1,000 mcg IM DAILY [facility] Stop: 07/03/18 10:01 Last Admin: 06/28/18 10:06 Dose: 1,000 mcg Diltiazem HCl (Cardizem) 60 mg PO QID [facility] Last Admin: 06/28/18 10:05 Dose: 60 mg Enoxaparin Sodium (Lovenox) 90 mg SC Q12 [facility] Last Admin: 06/28/18 10:07 Dose: 90 mg Ibuprofen (Motrin Tab) 400 mg PO Q8H PRN PRN Reason: Pain, moderate (4-7) Last Admin: 06/28/18 10:06 Dose: 400 mg Memantine (Namenda) 5 mg PO DAILY [facility] Last Admin: 06/28/18 10:05 Dose: 5 mg Rosuvastatin Calcium (Crestor) 5 mg PO HS [facility] Last Admin: 06/27/18 21:47 Dose: 5 mg - Labs Labs: 06/27/18 07:00 06/27/18 07:00 PT 12.7 SECONDS (9.7-12.2) H 06/26/18 13:56 INR 1.2 06/26/18 13:56 APTT 30 SECONDS (21-34) 06/26/18 13:56
--- NOTE | 2018-06-28 15:01 | CP.PCM.CON ---
History of Present Illness - History of Present Illness History of Present Illness: GI Service Consult CC: abnl LFTs HPI: Asked to see patient for abnormal LFTs incidentally noted. Pt admitted from Dr Blandon's office for new onset AFib. Denies chest pain, abdominal pain, jaundice, pruritis. Main complaint is weakness and leg pain. Pt scheduled for cardiac cath by Dr Joshi tomorrow. Echo remarkable for pulmonary HTN, pulmonic valve dysfunction. Pt notes [facility]. Review of Systems - Constitutional Constitutional: Weakness - EENT Eyes: absent: Change in Vision Nose/Mouth/Throat: absent: Dysphagia - Cardiovascular Cardiovascular: Dyspnea on Exertion. absent: Chest Pain - Respiratory Respiratory: Dyspnea on Exertion. absent: Cough - Gastrointestinal Gastrointestinal: As Per HPI. absent: Abdominal Pain - Genitourinary Genitourinary: absent: Change in Urinary Stream - Musculoskeletal Musculoskeletal: Back Pain - Integumentary Integumentary: absent: Jaundice - Neurological Neurological: absent: Abnormal Hearing - Psychiatric Psychiatric: absent: Confusion - Endocrine Endocrine: absent: Change in Body Appearance - Hematologic/Lymphatic Hematologic: absent: Easy Bleeding Past Patient History - Infectious Disease Hx of Infectious Diseases: None - Past Medical History & Family History Past Medical History?: Yes - Past Social History Smoking Status: Former Smoker Alcohol: None - CARDIAC Hx Hypercholesterolemia: Yes Hx Hypertension: Yes - PULMONARY Hx Respiratory Disorders: No - NEUROLOGICAL Hx Vertigo: Yes - HEENT Hx HEENT Problems: No - RENAL Hx Chronic Kidney Disease: No - ENDOCRINE/METABOLIC Hx Endocrine Disorders: No - HEMATOLOGICAL/ONCOLOGICAL Hx Blood Disorders: No - INTEGUMENTARY Hx Dermatological Problems: No - MUSCULOSKELETAL/RHEUMATOLOGICAL Hx Arthritis: Yes - GASTROINTESTINAL Hx Gastrointestinal Disorders: No - GENITOURINARY/GYNECOLOGICAL Hx Genitourinary Disorders: No - PSYCHIATRIC Hx Anxiety: Yes Hx Depression: Yes Hx Substance Use: No - SURGICAL HISTORY Hx Surgeries: No - ANESTHESIA Hx Anesthesia: No Meds Allergies/Adverse Reactions: Allergies Allergy/AdvReac Type Severity Reaction Status Date / Time No Known Allergies Allergy Verified 06/26/18 13:20 - Medications Medications: Current Medications Aspirin (Ecotrin) 81 mg PO DAILY [facility] Last Admin: 06/28/18 10:06 Dose: 81 mg Cyanocobalamin (Vitamin B12 1000 Mcg/Ml Inj) 1,000 mcg IM DAILY [facility] Stop: 07/03/18 10:01 Last Admin: 06/28/18 10:06 Dose: 1,000 mcg Diltiazem HCl (Cardizem) 60 mg PO QID [facility] Last Admin: 06/28/18 14:09 Dose: 60 mg Enoxaparin Sodium (Lovenox) 90 mg SC Q12 [facility] Last Admin: 06/28/18 10:07 Dose: 90 mg Ceftriaxone Sodium 1 gm/ (Sodium Chloride) 100 mls @ 100 mls/hr IVPB Q24H [facility] PRN Reason: Protocol Last Admin: 06/28/18 14:09 Dose: 100 mls/hr Ibuprofen (Motrin Tab) 400 mg PO Q8H PRN PRN Reason: Pain, moderate (4-7) Last Admin: 06/28/18 10:06 Dose: 400 mg Memantine (Namenda) 5 mg PO DAILY [facility] Last Admin: 06/28/18 10:05 Dose: 5 mg Rosuvastatin Calcium (Crestor) 5 mg PO HS [facility] Last Admin: 06/27/18 21:47 Dose: 5 mg Physical Exam - Constitutional Appears: Well, No Acute Distress - Head Exam Head Exam: ATRAUMATIC, NORMAL INSPECTION, NORMOCEPHALIC - Eye Exam Eye Exam: absent: Scleral icterus - ENT Exam ENT Exam: Normal Exam - Neck Exam Neck exam: Positive for: Normal Inspection - Respiratory Exam Respiratory Exam: NORMAL BREATHING PATTERN - Cardiovascular Exam Cardiovascular Exam: REGULAR RHYTHM - GI/Abdominal Exam GI & Abdominal Exam: Soft. absent: Organomegaly, Tenderness - Extremities Exam Extremities exam: Positive for: normal inspection. Negative for: calf tenderness - Back Exam Back exam: NORMAL INSPECTION - Neurological Exam Neurological exam: Alert, Oriented x3 - Psychiatric Exam Psychiatric exam: Normal Affect, Normal Mood - Skin Skin Exam: Normal Color Results - Vital Signs Recent Vital Signs: Last Vital Signs Temp 97.7 F 06/28/18 07:00 Pulse 110 H 06/28/18 14:10 Resp 20 06/28/18 07:00 BP 127/82 06/28/18 14:10 Pulse Ox 96 06/28/18 07:00 - Labs Result Diagrams: 06/27/18 07:00 06/27/18 07:00 Labs: Laboratory Results - last 24 hr 06/27/18 06/27/18 07:00 07:00 Hemoglobin A1c 4.7 RPR Nonreactive Assessment & Plan (1) Atrial fibrillation Assessment and Plan: managed by diazo technician Status: Acute (2) Elevated liver enzymes Assessment and Plan: Likely due to underlying pulmonary hypertension with congestive hepatopathy R/O Drug induced Rec: cardiac management of underlying cardiac disease. Monitor liver chemistries. Status: Acute - Date & Time Date: 06/28/18 Time: 15:08
--- NOTE | 2018-06-28 21:51 | CP.PCM.PN ---
Subjective - Date & Time of Evaluation Date of Evaluation: 06/28/18 Time of Evaluation: 17:20 - Subjective Subjective: Patient seen and evaluated A Fib and chest pain cardiomyopathy with EF <30% Full anticoagulation for A Fib Cardiac cath Friday afternoon NPO after breakfast Friday morning Review Of Systems Except As Marked, All Systems Reviewed And Found Negative. Constitutional: Negative for: Fever, Chills Cardiovascular: Positive for: Chest Pain. Negative for: Palpitations Respiratory: Positive for: Shortness of Breath. Negative for: Cough Gastrointestinal: Negative for: Nausea, Vomiting Physical Exam - Physical Exam Appears: Non-toxic, No Acute Distress Skin: Normal Color, Warm, Dry Head: Atraumatic, Normacephalic Eye(s): bilateral: Normal Inspection Oral Mucosa: Moist Neck: Supple Cardiovascular: Rhythm Irregular (irregularly irregular) Respiratory: Normal Breath Sounds, No Rales, No Rhonchi, No Wheezing Gastrointestinal/Abdominal: Soft, No Tenderness Extremity: Normal ROM, No Pedal Edema Neurological/Psych: Oriented x3, Normal Speech Objective - Vital Signs/Intake and Output Vital Signs (last 24 hours): Temp Pulse Resp BP Pulse Ox 98.4 F 95 H 20 140/88 96 06/28/18 15:00 06/28/18 16:00 06/28/18 15:00 06/28/18 15:00 06/28/18 15:00 Intake and Output: 06/28/18 06/29/18 18:59 06:59 Intake Total 500 Output Total 3 Balance 497 - Medications Medications: Current Medications Aspirin (Ecotrin) 81 mg PO DAILY [facility] Last Admin: 06/28/18 10:06 Dose: 81 mg Cyanocobalamin (Vitamin B12 1000 Mcg/Ml Inj) 1,000 mcg IM DAILY [facility] Stop: 07/03/18 10:01 Last Admin: 06/28/18 10:06 Dose: 1,000 mcg Diltiazem HCl (Cardizem) 60 mg PO QID [facility] Last Admin: 06/28/18 17:39 Dose: 60 mg Enoxaparin Sodium (Lovenox) 90 mg SC Q12 [facility] Last Admin: 06/28/18 10:07 Dose: 90 mg Ceftriaxone Sodium 1 gm/ (Sodium Chloride) 100 mls @ 100 mls/hr IVPB Q24H [facility] PRN Reason: Protocol Last Admin: 06/28/18 14:09 Dose: 100 mls/hr Ibuprofen (Motrin Tab) 400 mg PO Q8H PRN PRN Reason: Pain, moderate (4-7) Last Admin: 06/28/18 10:06 Dose: 400 mg Memantine (Namenda) 5 mg PO DAILY [facility] Last Admin: 06/28/18 10:05 Dose: 5 mg Rosuvastatin Calcium (Crestor) 5 mg PO HS [facility] Last Admin: 06/27/18 21:47 Dose: 5 mg - Labs Labs: 06/27/18 07:00 06/27/18 07:00 PT 12.7 SECONDS (9.7-12.2) H 06/26/18 13:56 INR 1.2 06/26/18 13:56 APTT 30 SECONDS (21-34) 06/26/18 13:56 Assessment and Plan - Assessment and Plan (Free Text) Assessment: A Fib Exertional chest pain and dyspnea CVA Cardiomyopathy with EF of <35% Cath tomorrow NPO after breakfast No Lovenox tomorrow Give ASA tomorrow
--- NOTE | 2018-06-29 01:12 | PN ---
DATE: 06/28/2018 SUBJECTIVE: The patient was seen and examined at bedside. The patient offers no new complaints. Denies any chest pain, shortness of breath or wheezing. Denies any palpitations. PHYSICAL EXAMINATION: GENERAL: An elderly female, lying in bed in no acute distress. VITAL SIGNS: Blood pressure 140/88, pulse 99, respirations 20, temperature 98.4 degrees Fahrenheit, O2 saturations 96% on room air. HEENT: Pupils equal, round and reacting to light and accommodation. Extraocular muscles intact. No icterus, no pallor, no oral thrush, no pharyngeal congestion. NECK: Supple, no JVD. LUNGS: Bilateral vesicular breath sounds. No wheezing, no rhonchi. CVS: S1 and S2 present, irregular. ABDOMEN: Soft, nontender. Bowel sounds present. No guarding. No rigidity. No rebound tenderness noted. POWER TRANSMISSION ENGINEER: Alert, awake and oriented x3. No focal deficits noted. EXTREMITIES: No edema. Palpable peripheral pulses. MEDICATIONS: Include aspirin 81 mg daily, Rocephin 1 gm daily, B12 1000 mcg daily, Cardizem 60 mg p.o. q.i.d., Lovenox 90 mg sub every 12 hours, Motrin as needed, Namenda 5 mg daily and Crestor 5 mg p.o. at bedtime. LABORATORY DATA: RPR nonreactive. Hepatitis serology negative. Urine culture consistent with gram negative rods. Sensitivity and identification pending. ASSESSMENT AND PLAN: Elderly female with history of hypertension, hyperlipidemia, dementia, vertigo, osteoarthritis, and osteoporosis, admitted for new onset atrial fibrillation with rapid ventricular rate, status post syncope, urinary tract infection, abnormal liver function test. Echo consistent with cardiomyopathy and CT head consistent with chronic microvascular ischemic changes. Cardiology, neurology, and GI consults appreciated for possible cardiac cath in a.m. Her rates are controlled with Cardizem. Continue with Lovenox. Start Rocephin for urinary tract infection pending sensitivity and identification. Followup with cardiology. Merle Cuevas MD
[2018-06-29 06:32] LABS: BASO % 0.2 % (0.0-2.0); EOS # 0.2 K/uL (0.0-0.7); HEMOGLOBIN 12.3 g/dL (11.0-16.0); LYMPH # 1.5 K/uL (1.0-4.3); MEAN CELL VOLUME 93.1 fL (81.0-99.0); MEAN CORPUSCULAR HEMOGLOBIN 31.8 pg (27.0-31.0); MEAN CORPUSCULAR HGB CONC 34.1 g/dL (33.0-37.0); MEAN PLATELET VOLUME 9.4 fL (7.2-11.7); MONO # 0.4 K/uL (0.0-0.8); MONO % 7.7 % (0.0-10.0); NEUT # 2.7 K/uL (1.8-7.0); NEUT % 56.1 % (50.0-75.0); NRBC % 0.1 % (0.0-2.0); RBC 3.86 Mil/uL (3.80-5.20); RED CELL DISTRIBUTION WIDTH 13.4 % (11.5-14.5); WHITE BLOOD COUNT 4.7 K/uL (4.8-10.8)
[2018-06-29 06:52] LABS: ALB/GLOB RATIO 1.4 (1.0-2.1); ALBUMIN 4.2 g/dL (3.5-5.0); ALT/SGPT 63 U/L (9-52); AST/SGOT 36 U/L (14-36); BLOOD UREA NITROGEN 11 mg/dL (7-17); CALCIUM 9.1 mg/dl (8.6-10.4); GFR NON-AFRICAN AMERICAN > 60
--- NOTE | 2018-06-29 07:06 | CP.PCM.PN ---
Subjective - Date & Time of Evaluation Date of Evaluation: 06/29/18 Time of Evaluation: 06:58 - Subjective Subjective: Ms. Freeman was seen and examined at the bedside. She is alert, oriented x3, denies any headache, dizziness, lightheadedness, nausea, or vomiting. She is able to ambulate within her room with unsteady gait due to pain in the bottom of her bilateral feet. She further described as needle like, aggravates with ambulation.She is able to move all extremities spontaneously. She is able to state the reason why she had episode of feeling weak in her bilateral lower extremities. She is schedule for cardiac catheterization today. There was no untoward events overnight. Objective - Vital Signs/Intake and Output Vital Signs (last 24 hours): Temp Pulse Resp BP Pulse Ox 98.4 F 94 H 20 118/81 95 06/28/18 23:05 06/29/18 00:00 06/28/18 23:05 06/28/18 23:05 06/28/18 23:05 Intake and Output: 06/28/18 06/29/18 18:59 06:59 Intake Total 500 Output Total 3 Balance 497 - Medications Medications: Current Medications Aspirin (Ecotrin) 81 mg PO DAILY [facility] Last Admin: 06/28/18 10:06 Dose: 81 mg Cyanocobalamin (Vitamin B12 1000 Mcg/Ml Inj) 1,000 mcg IM DAILY [facility] Stop: 07/03/18 10:01 Last Admin: 06/28/18 10:06 Dose: 1,000 mcg Diltiazem HCl (Cardizem) 60 mg PO QID [facility] Last Admin: 06/28/18 21:59 Dose: 60 mg Enoxaparin Sodium (Lovenox) 90 mg SC Q12 [facility] Last Admin: 06/28/18 22:00 Dose: 90 mg Ceftriaxone Sodium 1 gm/ (Sodium Chloride) 100 mls @ 100 mls/hr IVPB Q24H [facility] PRN Reason: Protocol Last Admin: 06/28/18 14:09 Dose: 100 mls/hr Ibuprofen (Motrin Tab) 400 mg PO Q8H PRN PRN Reason: Pain, moderate (4-7) Last Admin: 06/28/18 10:06 Dose: 400 mg Memantine (Namenda) 5 mg PO DAILY [facility] Last Admin: 06/28/18 10:05 Dose: 5 mg Rosuvastatin Calcium (Crestor) 5 mg PO HS [facility] Last Admin: 06/28/18 22:00 Dose: 5 mg - Labs Labs: 06/29/18 06:15 06/29/18 06:15 PT 12.7 SECONDS (9.7-12.2) H 06/26/18 13:56 INR 1.2 06/26/18 13:56 APTT 30 SECONDS (21-34) 06/26/18 13:56 - Constitutional Appears: No Acute Distress - Head Exam Head Exam: NORMAL INSPECTION - Eye Exam Pupil Exam: PERRL - Neurological Exam Neurological Exam: Alert, Awake Neuro motor strength exam: Left Upper Extremity: 4, Right Upper Extremity: 4, Left Lower Extremity: 4, Right Lower Extremity: 4 Additional comments: alert, oriented x3 follows commands, sensation is intact. Assessment and Plan (1) Atrial fibrillation Assessment & Plan: Continue all current medical regimen. Recommend venous duplex of the lower extremities, follow any cardiology orders, treat any electrolyte abnormalities.If venous duplex is normal, MRI of the lumbar spine without contrast. Status: Acute
[2018-06-29 07:12] LABS: INR 1.1; PROTHROMBIN TIME 12.5 SECONDS (9.7-12.2)
[2018-06-29] MEDS: Enoxaparin 100 mg Syringe SC SCH ×2 (10:19→21:57)
--- NOTE | 2018-06-29 13:54 | CP.PCM.PN ---
Subjective - Date & Time of Evaluation Date of Evaluation: 06/29/18 Time of Evaluation: 13:54 - Subjective Subjective: Progress note dictated # [id number] Objective - Vital Signs/Intake and Output Vital Signs (last 24 hours): Temp Pulse Resp BP Pulse Ox 98.4 F 130 H 20 118/81 95 06/28/18 23:05 06/29/18 07:20 06/28/18 23:05 06/28/18 23:05 06/28/18 23:05 - Medications Medications: Current Medications Aspirin (Ecotrin) 81 mg PO DAILY [facility] Last Admin: 06/29/18 10:20 Dose: Not Given Cyanocobalamin (Vitamin B12 1000 Mcg/Ml Inj) 1,000 mcg IM DAILY [facility] Stop: 07/03/18 10:01 Last Admin: 06/29/18 11:00 Dose: Not Given Diltiazem HCl (Cardizem) 60 mg PO QID [facility] Last Admin: 06/29/18 13:04 Dose: Not Given Enoxaparin Sodium (Lovenox) 90 mg SC Q12 [facility] Last Admin: 06/29/18 10:19 Dose: Not Given Ceftriaxone Sodium 1 gm/ (Sodium Chloride) 100 mls @ 100 mls/hr IVPB Q24H [facility] PRN Reason: Protocol Last Admin: 06/28/18 14:09 Dose: 100 mls/hr Ibuprofen (Motrin Tab) 400 mg PO Q8H PRN PRN Reason: Pain, moderate (4-7) Last Admin: 06/28/18 10:06 Dose: 400 mg Memantine (Namenda) 5 mg PO DAILY [facility] Last Admin: 06/29/18 10:20 Dose: Not Given Rosuvastatin Calcium (Crestor) 5 mg PO HS [facility] Last Admin: 06/28/18 22:00 Dose: 5 mg - Labs Labs: 06/29/18 06:15 06/29/18 06:15 PT 12.5 SECONDS (9.7-12.2) H 06/29/18 07:01 INR 1.1 06/29/18 07:01 APTT 30 SECONDS (21-34) 06/26/18 13:56
[2018-06-29] MEDS ORDERED: DiphenhydrAMINE 50 mg/ml Inj ONE (15:51)
[2018-06-29] MEDS ORDERED: Midazolam 2 MG/2 ML VIAL ONE (16:13)
[2018-06-29] MEDS ORDERED: Lidocaine 2% MPF (5 ml) Inj ONE ×2 (16:13→16:20)
--- NOTE | 2018-06-29 21:56 | CP.PCM.PN ---
Subjective - Date & Time of Evaluation Date of Evaluation: 06/29/18 Time of Evaluation: 21:54 - Subjective Subjective: Patient s/p cath Non Obstructive coronaries LOTUS 2 flow in RCA EF 25% A Fib LOVE/CV tomorrow am Continue AC with Eliquis Objective - Vital Signs/Intake and Output Vital Signs (last 24 hours): Temp Pulse Resp BP Pulse Ox 97.8 F 118 H 20 122/80 95 06/29/18 18:00 06/29/18 18:00 06/29/18 18:00 06/29/18 18:00 06/29/18 18:00 - Medications Medications: Current Medications Aspirin (Ecotrin) 81 mg PO DAILY [facility] Last Admin: 06/29/18 10:20 Dose: Not Given Cyanocobalamin (Vitamin B12 1000 Mcg/Ml Inj) 1,000 mcg IM DAILY [facility] Stop: 07/03/18 10:01 Last Admin: 06/29/18 11:00 Dose: Not Given Diltiazem HCl (Cardizem) 60 mg PO QID [facility] Last Admin: 06/29/18 21:38 Dose: 60 mg Enoxaparin Sodium (Lovenox) 90 mg SC Q12 [facility] Last Admin: 06/29/18 10:19 Dose: Not Given Ceftriaxone Sodium 1 gm/ (Sodium Chloride) 100 mls @ 100 mls/hr IVPB Q24H [facility] PRN Reason: Protocol Last Admin: 06/29/18 18:10 Dose: 100 mls/hr Ibuprofen (Motrin Tab) 400 mg PO Q8H PRN PRN Reason: Pain, moderate (4-7) Last Admin: 06/28/18 10:06 Dose: 400 mg Memantine (Namenda) 5 mg PO DAILY [facility] Last Admin: 06/29/18 10:20 Dose: Not Given Rosuvastatin Calcium (Crestor) 5 mg PO HS [facility] Last Admin: 06/29/18 21:38 Dose: 5 mg - Labs Labs: 06/29/18 06:15 06/29/18 06:15 PT 12.5 SECONDS (9.7-12.2) H 06/29/18 07:01 INR 1.1 06/29/18 07:01 APTT 30 SECONDS (21-34) 06/26/18 13:56
--- NOTE | 2018-06-30 06:50 | PN ---
DATE: 06/29/2018 SUBJECTIVE: The patient was seen and examined at bedside. The patient is upset as the patient is kept n.p.o. for possible cardiac catheterization this afternoon. Denies any new complaints PHYSICAL EXAMINATION: GENERAL: Elderly female, lying in bed, in no acute distress. VITAL SIGNS: Blood pressure 122/80, pulse 112, respirations 20, temperature 97.8 degrees Fahrenheit, and O2 saturations 95% on room air. HEENT: Pupils are equal, round, and reacting to light and accommodation. Extraocular muscles are intact. No icterus. No pallor. No oral thrush. No pharyngeal congestion. NECK: Supple. No JVD. No thyromegaly. CHEST: Moving equally bilaterally on respiration. LUNGS: Bilateral vesicular breath sounds. No wheezing. No rhonchi. CVS: S1 and S2 present, irregular. ABDOMEN: Soft. Nontender. Bowel sounds are present. No guarding. No rigidly. No rebound tenderness noted. PARAGLIDING INSTRUCTOR: Alert, awake, and oriented x3. No focal deficits noted. EXTREMITIES: No edema. MEDICATIONS: Include aspirin 81 mg daily, Rocephin 1 g daily, vitamin B12 of 1000 mcg daily, Cardizem 60 mg p.o. 4 times daily, Lovenox 90 mg subcutaneous every 12 hours, Motrin 400 mg every 8 hours as needed, Namenda 5 mg daily, and Crestor 5 mg daily. LABORATORY DATA: Labs from this morning: WBC 4.7, hemoglobin 12.3, hematocrit 36, and platelets 226. PT 12.5, INR 1.1. Sodium 142, potassium 4.3, chloride 104, bicarbonate 28, BUN 11, creatinine 0.6, glucose 112, calcium 9.1, phosphorous 2.9, magnesium 2.2, and total bilirubin 2.2. AST 36, ALT 63, and alkaline phosphatase 74. ASSESSMENT AND PLAN: Elderly female with history of hypertension, hyperlipemia, dementia, osteoarthritis, osteoporosis, admitted for new onset atrial fibrillation, found to have cardiomyopathy, abnormal liver function tests. CT consistent with chronic microvascular ishemic changes, started on therapeutic anticoagulation, underwent cardiac catheterization today. We will follow up with Cardiology. Continue with current medications. Merle Cuevas MD [facility] # [id number]
[2018-06-30 07:56] LABS: BLOOD UREA NITROGEN 21 mg/dL (7-17); CALCIUM 8.9 mg/dl (8.6-10.4); GFR NON-AFRICAN AMERICAN > 60
[2018-06-30 08:01] LABS: INR 1.1; PROTHROMBIN TIME 12.4 SECONDS (9.7-12.2)
[2018-06-30] MEDS ORDERED: Lidocaine 4% (Laryng-O-Jet) Kit MM ONE ×2 (08:33→09:21)
[2018-06-30] MEDS ORDERED: Midazolam 2 MG/2 ML VIAL ONE (09:09)
[2018-06-30] MEDS ORDERED: Propofol 10 mg/ml Inj (20 ML) ONE (09:10)
[2018-06-30] MEDS ORDERED: Lidocaine Hydrochloride 5 ML INJ ONE (09:17)
[2018-06-30] MEDS ORDERED: Esmolol 100 mg/10ml Inj IV ONE (09:19)
--- NOTE | 2018-06-30 10:24 | CP.PCM.PN ---
Subjective - Date & Time of Evaluation Date of Evaluation: 06/30/18 Time of Evaluation: 10:23 - Subjective Subjective: Progress note dictated #[id number] Objective - Vital Signs/Intake and Output Vital Signs (last 24 hours): Temp Pulse Resp BP Pulse Ox 97.5 F L 118 H 20 115/75 96 06/30/18 07:15 06/30/18 07:32 06/30/18 07:15 06/30/18 07:15 06/30/18 07:15 Intake and Output: 06/30/18 06/30/18 06:59 18:59 Intake Total 340 Balance 340 - Medications Medications: Current Medications Apixaban (Eliquis) 5 mg PO BID [facility] Cyanocobalamin (Vitamin B12 1000 Mcg/Ml Inj) 1,000 mcg IM DAILY [facility] Stop: 07/03/18 10:01 Last Admin: 06/29/18 11:00 Dose: Not Given Diltiazem HCl (Cardizem) 60 mg PO QID [facility] Last Admin: 06/29/18 21:38 Dose: 60 mg Ceftriaxone Sodium 1 gm/ (Sodium Chloride) 100 mls @ 100 mls/hr IVPB Q24H [facility] PRN Reason: Protocol Last Admin: 06/29/18 18:10 Dose: 100 mls/hr Memantine (Namenda) 5 mg PO DAILY [facility] Last Admin: 06/29/18 10:20 Dose: Not Given Rosuvastatin Calcium (Crestor) 5 mg PO HS [facility] Last Admin: 06/29/18 21:38 Dose: 5 mg - Labs Labs: 06/29/18 06:15 06/30/18 07:28 PT 12.4 SECONDS (9.7-12.2) H 06/30/18 07:28 INR 1.1 06/30/18 07:28 APTT 30 SECONDS (21-34) 06/26/18 13:56
[2018-06-30 13:36] LABS: SQUAMOUS EPITHIAL 3 /hpf (0-5); URINE BACTERIA RARE (<OCC); URINE BILIRUBIN NEGATIVE (NEGATIVE); URINE BLOOD 1+ (NEGATIVE); URINE CLARITY Clear (Clear); URINE COLOR Yellow (YELLOW); URINE GLUCOSE (UA) NORMAL (Normal); URINE LEUKOCYTE ESTERASE NEG Leu/uL (Negative); URINE PROTEIN NEGATIVE (NEGATIVE)
--- NOTE | 2018-06-30 14:11 | VASCLAB ---
Date of service: 06/29/2018 PROCEDURE: Lower Extremity Venous Duplex Exam. HISTORY: Pain in bilateral lower extremities PRIORS: None. TECHNIQUE: Bilateral common femoral, femoral, popliteal and posterior tibial, peroneal and great saphenous veins were evaluated. Flow was assessed with color Doppler, compressibility, assessment of phasic flow and augmentation response. Report prepared by HANNAH Brand FINDINGS: RIGHT: 1. Common Femoral Vein: 1.1. Compressibility - Fully compressible: Thrombus - None : Flow - Phasic: Augmentation -Normal: Reflux - None. 2. Femoral Vein: 2.1. Compressibility - Fully compressible: Thrombus - None : Flow - Phasic: Augmentation -Normal: Reflux - None. 3. Popliteal Vein: 3.1. Compressibility - Fully compressible: Thrombus - None : Flow - Phasic: Augmentation -Normal: Reflux - None. 4. Posterior Tibial Vein: 4.1. Compressibility - Fully compressible: Thrombus - None: Flow - Phasic: Augmentation -Normal: Reflux - None. 5. Peroneal Vein: 5.1. Compressibility - Fully compressible: Thrombus - None: Flow - Phasic: Augmentation -Normal: Reflux - None. 6. Great Saphenous Vein: 6.1. Compressibility - Fully compressible: Thrombus - None: Flow - Phasic: Augmentation - Normal: Reflux - Mild 2.50s LEFT: 1. Common Femoral Vein: 1.1. Compressibility - Fully compressible: Thrombus - None: Flow - Phasic: Augmentation -Normal: Reflux - None. 2. Femoral Vein: 2.1. Compressibility - Fully compressible: Thrombus - None: Flow - Phasic: Augmentation -Normal: Reflux - None. 3. Popliteal Vein: 3.1. Compressibility - Fully compressible: Thrombus - None : Flow - Phasic: Augmentation -Normal: Reflux - None. 4. Posterior Tibial Vein: 4.1. Compressibility - Fully compressible: Thrombus - None: Flow - Phasic: Augmentation -Normal: Reflux - None. 5. Peroneal Vein: 5.1. Compressibility - Fully compressible: Thrombus - None: Flow - Phasic: Augmentation -Normal: Reflux - None. 6. Great Saphenous Vein: 6.1. Compressibility - Fully compressible: Thrombus - None: Flow - Phasic: Augmentation - Normal: Reflux - Moderate 3.50s OTHER FINDINGS: Right: None significant. Left: None significant. IMPRESSION: Right: No evidence of deep or superficial vein thrombosis of the right lower extremity. Left: No evidence of deep or superficial vein thrombosis of the left lower extremity. Valvular incompetence noted of bilateral great saphenous veins. Multiple varicose veins with reflux noted bilaterally.
--- NOTE | 2018-06-30 14:15 | VASCLAB ---
Date of service: 06/27/2018 PROCEDURE: HISTORY: syncope COMPARISON: None available. TECHNIQUE: Grayscale and duplex Doppler evaluation of the cervical carotid and vertebral arteries were performed. The common carotid, carotid bifurcations and cervical Internal Carotid Artery (ICA) and proximal External Carotid Artery (ECA) were evaluated. The vertebral arteries were evaluated for gross patency and flow direction. Report prepared by Aidan Young, BS, RVT FINDINGS: RIGHT CAROTID ARTERIES: 1. Common Carotid Artery: No significant focal plaque formation of the right common carotid artery. Maximum Peak Systolic velocity: 83 cm/sec: End-diastolic velocity 35 cm/sec. 2. Carotid Bifurcation: plaque formation. Maximum Peak Systolic velocity: 56 cm/sec: End-diastolic velocity 20 cm/sec. 3. Internal Carotid Artery: Plaque description: 3.1. Proximal Segment: Peak systolic velocity 56 cm/sec: End-diastolic velocity 16 cm/sec - % stenosis 0-15% 3.2. Middle Segment: Peak systolic velocity 46 cm/sec: End-diastolic velocity 20 cm/sec - % stenosis 0-15% 3.3. Distal Segment: Peak systolic velocity 68 cm/sec: End-diastolic velocity 43 cm/sec - % stenosis 0-15% 4. External Carotid Artery: No significant focal plaque formation. Peak systolic velocity 50 cm/sec 5. ICA/CCA Ratio: 0.8 LEFT CAROTID ARTERIES: 1. Common Carotid Artery: No significant focal plaque formation of the left common carotid artery. Maximum Peak Systolic velocity: 68 cm/sec: End-diastolic velocity 29 cm/sec. 2. Carotid Bifurcation: plaque formation. Maximum Peak Systolic velocity: 58 cm/sec: End-diastolic velocity 18 cm/sec. 3. Internal Carotid Artery: Plaque description: 3.1. Proximal Segment: Peak systolic velocity 64 cm/sec: End-diastolic velocity 30 cm/sec - % stenosis 0-15% 3.2. Middle Segment: Peak systolic velocity 41 cm/sec: End-diastolic velocity 17 cm/sec - % stenosis 0-15% 3.3. Distal Segment: Peak systolic velocity 73 cm/sec: End-diastolic velocity 38 cm/sec - % stenosis 0-15% 4. External Carotid Artery: No significant focal plaque formation. Peak systolic velocity 51 cm/sec 5. ICA/CCA Ratio: 1.1 VERTEBRAL ARTERIES: 1. Right Vertebral Artery: The right vertebral artery flow direction is antegrade. 2. Left Vertebral Artery: The left vertebral artery flow direction is antegrade. OTHER FINDINGS: 1. Right Brachial Blood pressure: 130 mmHg. 2. Left Brachial Blood pressure: mmHg. IMPRESSION: RIGHT: Duplex scan does not suggest hemodynamically significant stenosis of the right extracranial carotid arteries. Tortuosity of the right internal carotid artery. LEFT: Duplex scan does not suggest hemodynamically significant stenosis of the left extracranial carotid arteries.
[2018-06-30] MEDS: guaiFENesin 600 mg ER Tab PO SCH (17:40)
--- NOTE | 2018-06-30 22:32 | CP.PCM.PN ---
Subjective - Date & Time of Evaluation Date of Evaluation: 06/30/18 Time of Evaluation: 13:05 - Subjective Subjective: Patient s/p LOVE and successful electrical cardioversion to NSR Anticoagulation for 6 weeks Then ASA 81 daily for life Objective - Vital Signs/Intake and Output Vital Signs (last 24 hours): Temp Pulse Resp BP Pulse Ox 98.0 F 80 20 116/75 95 06/30/18 15:00 06/30/18 16:00 06/30/18 15:00 06/30/18 15:00 06/30/18 15:00 - Medications Medications: Current Medications Albuterol/Ipratropium (Duoneb 3 Mg/0.5 Mg (3 Ml) Ud) 3 ml INH RQ6 [facility] Apixaban (Eliquis) 5 mg PO BID [facility] Last Admin: 06/30/18 17:40 Dose: 5 mg Cyanocobalamin (Vitamin B12 1000 Mcg/Ml Inj) 1,000 mcg IM DAILY [facility] Stop: 07/03/18 10:01 Last Admin: 06/30/18 12:03 Dose: 1,000 mcg Diltiazem HCl (Cardizem) 60 mg PO QID [facility] Last Admin: 06/30/18 22:10 Dose: 60 mg Guaifenesin (Mucinex La) 600 mg PO BID [facility] Last Admin: 06/30/18 17:40 Dose: 600 mg Ceftriaxone Sodium 1 gm/ (Sodium Chloride) 100 mls @ 100 mls/hr IVPB Q24H [facility] PRN Reason: Protocol Last Admin: 06/30/18 14:23 Dose: 100 mls/hr Memantine (Namenda) 5 mg PO DAILY [facility] Last Admin: 06/30/18 12:02 Dose: 5 mg Rosuvastatin Calcium (Crestor) 5 mg PO HS [facility] Last Admin: 06/30/18 22:09 Dose: 5 mg - Labs Labs: 06/29/18 06:15 06/30/18 07:28 PT 12.4 SECONDS (9.7-12.2) H 06/30/18 07:28 INR 1.1 06/30/18 07:28 APTT 30 SECONDS (21-34) 06/26/18 13:56
--- NOTE | 2018-07-01 00:10 | PN ---
DATE: 06/30/2018 SUBJECTIVE: The patient was seen and examined at bedside. The patient underwent LOVE this morning, feeling much better. Denies any new complaints. REVIEW OF SYSTEMS: All systems reviewed and were negative. PHYSICAL EXAMINATION: GENERAL: Elderly female, lying in bed, in no acute distress. VITAL SIGNS: Blood pressure 116/75, pulse 80, respirations 20, temperature 98 degrees Fahrenheit and O2 saturations 95% on room air. HEENT: Pupils equal, round, and reacting to light and accommodation. Extraocular muscles are intact. No icterus. No pallor. No oral thrush. No pharyngeal congestion. NECK: Supple. No JVD. LUNGS: Bilateral vesicular breath sounds. No wheezing. No rhonchi. CVS: S1 and S2 present, irregularly irregular. ABDOMEN: Soft. Nontender. Bowel sounds are present. No guarding. No rigidly. No rebound tenderness noted. BOWSTRING MAKER: Alert, awake, and oriented x3. No focal deficits noted. EXTREMITIES: No edema. Palpable peripheral pulses. MEDICATIONS: Include DuoNeb, Eliquis 5 mg p.o. b.i.d., Rocephin 1 gm daily, vitamin B12 injection, Cardizem 60 mg p.o. q.i.d., Mucinex 600 mg p.o. b.i.d., Namenda 5 mg p.o .daily and Crestor 5 mg p.o. at bedtime. LABORATORY DATA: Labs from today; sodium 138, potassium 4, chloride 104, bicarbonate 25, BUN 21, creatinine 0.8, glucose 163, calcium 8.9 and magnesium 1.9. UA negative. ASSESSMENT AND PLAN: Elderly female with history of hypertension, hyperlipemia, dementia, vertigo, osteoarthritis, osteoporosis admitted for new onset atrial fibrillation, found to have cardiomyopathy, B12 deficiency, nonobstructive coronary artery disease, urinary tract infection, abnormal liver function test and chronic microvascular changes. 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 Will continue with current medications. Will repeat UA and urine culture. We will request social media senior associate for discharge planning. Merle Cuevas MD [facility] # [id number]
[2018-07-01] MEDS: Albuterol-Ipratrop 3 mg / 0.5 (3 ml) UD INH SCH ×4 (01:14→19:08)
[2018-07-01] MEDS: guaiFENesin 600 mg ER Tab PO SCH ×2 (10:55→18:01)
--- NOTE | 2018-07-01 11:05 | CP.PCM.PN ---
Subjective - Date & Time of Evaluation Date of Evaluation: 07/01/18 Time of Evaluation: 11:05 - Subjective Subjective: Discharge summary dictated #[id number] Objective - Vital Signs/Intake and Output Vital Signs (last 24 hours): Temp Pulse Resp BP Pulse Ox 98.3 F 73 20 151/88 H 97 07/01/18 07:00 07/01/18 07:00 07/01/18 07:00 07/01/18 07:00 07/01/18 07:00 - Medications Medications: Current Medications Albuterol/Ipratropium (Duoneb 3 Mg/0.5 Mg (3 Ml) Ud) 3 ml INH RQ6 [facility] Last Admin: 07/01/18 07:28 Dose: Not Given Apixaban (Eliquis) 5 mg PO BID [facility] Last Admin: 07/01/18 10:56 Dose: 5 mg Cyanocobalamin (Vitamin B12 1000 Mcg/Ml Inj) 1,000 mcg IM DAILY [facility] Stop: 07/03/18 10:01 Last Admin: 07/01/18 10:57 Dose: 1,000 mcg Diltiazem HCl (Cardizem) 60 mg PO QID [facility] Last Admin: 07/01/18 10:55 Dose: 60 mg Guaifenesin (Mucinex La) 600 mg PO BID [facility] Last Admin: 07/01/18 10:55 Dose: 600 mg Ceftriaxone Sodium 1 gm/ (Sodium Chloride) 100 mls @ 100 mls/hr IVPB Q24H [facility] PRN Reason: Protocol Last Admin: 06/30/18 14:23 Dose: 100 mls/hr Memantine (Namenda) 5 mg PO DAILY [facility] Last Admin: 07/01/18 10:55 Dose: 5 mg Rosuvastatin Calcium (Crestor) 5 mg PO HS [facility] Last Admin: 06/30/18 22:09 Dose: 5 mg - Labs Labs: 06/29/18 06:15 06/30/18 07:28 PT 12.4 SECONDS (9.7-12.2) H 06/30/18 07:28 INR 1.1 06/30/18 07:28 APTT 30 SECONDS (21-34) 06/26/18 13:56
[2018-07-01] MEDS ORDERED: DiphenhydrAMINE 50 mg/ml Inj ONE (11:24)
--- NOTE | 2018-07-01 13:32 | CP.PCM.PN ---
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 Joshi's service) Patient was seen and examined at bedside. Patient states that she is doing well and has no complaints. Patient denies chest pain, palpitations, SOB, dizziness and lightheadedness. Objective - Vital Signs/Intake and Output Vital Signs (last 24 hours): Temp Pulse Resp BP Pulse Ox 98.3 F 73 20 151/88 H 97 07/01/18 07:00 07/01/18 07:00 07/01/18 07:00 07/01/18 07:00 07/01/18 07:00 - Medications Medications: Current Medications Albuterol/Ipratropium (Duoneb 3 Mg/0.5 Mg (3 Ml) Ud) 3 ml INH RQ6 [facility] Last Admin: 07/01/18 07:28 Dose: Not Given Apixaban (Eliquis) 5 mg PO BID [facility] Last Admin: 07/01/18 10:56 Dose: 5 mg Cyanocobalamin (Vitamin B12 1000 Mcg/Ml Inj) 1,000 mcg IM DAILY MARGARET Stop: 07/03/18 10:01 Last Admin: 07/01/18 10:57 Dose: 1,000 mcg Diltiazem HCl (Cardizem) 60 mg PO QID [facility] Last Admin: 07/01/18 10:55 Dose: 60 mg Guaifenesin (Mucinex La) 600 mg PO BID [facility] Last Admin: 07/01/18 10:55 Dose: 600 mg Ceftriaxone Sodium 1 gm/ (Sodium Chloride) 100 mls @ 100 mls/hr IVPB Q24H [facility] PRN Reason: Protocol Last Admin: 06/30/18 14:23 Dose: 100 mls/hr Memantine (Namenda) 5 mg PO DAILY [facility] Last Admin: 07/01/18 10:55 Dose: 5 mg Rosuvastatin Calcium (Crestor) 5 mg PO HS [facility] Last Admin: 06/30/18 22:09 Dose: 5 mg - Labs Labs: 06/29/18 06:15 06/30/18 07:28 PT 12.4 SECONDS (9.7-12.2) H 06/30/18 07:28 INR 1.1 06/30/18 07:28 APTT 30 SECONDS (21-34) 06/26/18 13:56 - Constitutional Appears: Well, No Acute Distress - Head Exam Head Exam: ATRAUMATIC, NORMAL INSPECTION - Eye Exam Eye Exam: EOMI, Normal appearance - ENT Exam ENT Exam: Mucous Membranes Moist - Respiratory Exam Respiratory Exam: Clear to Ausculation Bilateral, NORMAL BREATHING PATTERN. absent: Prolonged Expiratory Phase, Rhonchi, Wheezes - Cardiovascular Exam Cardiovascular Exam: REGULAR RHYTHM, +S1, +S2. absent: Murmur Additional comments: During the exam, patient was in NSR - GI/Abdominal Exam GI & Abdominal Exam: Soft, Normal Bowel Sounds. absent: Distended, Firm, Guarding, Rigid, Tenderness - Extremities Exam Extremities Exam: Normal Inspection. absent: Calf Tenderness, Pedal Edema - Neurological Exam Neurological Exam: Alert, Awake, Oriented x3 - Psychiatric Exam Psychiatric exam: Normal Affect, Normal Mood - Skin Skin Exam: Normal Color Assessment and Plan (1) Atrial fibrillation Assessment & Plan: Patient is a 72 year old female with past medical history of Anxiety, Arthritis , Depression, HTN, Hypercholesterolemia and atrial fibrillation, who had cardiac catherization over the course of admission, which showed Non Obstructive coronaries, LOTUS 2 flow in RCA and EF 25%. After cardiac catherization, patient was deemed as a good candidate for LOVE and cardioversion. Patient was successfully cardioverted into NSR. Further cardiac recommendation: - Please continue anticoagulation in 6 weeks - ASA 81mg PO daily for life - Continue cardizem as long as patient is not bradycardiac - Patient should follow up in 2-[address] Joshi outpatient and possible discussion about life vest due to noted poor ejection fraction (25%) on recent cardiac catherization Thank you for the opportunity to participate in your care All plans and management discussed with Dr. Joshi Status: Acute <Marcel Joshi - Last Filed: 07/01/18 18:39> Objective - Vital Signs/Intake and Output Vital Signs (last 24 hours): Temp Pulse Resp BP Pulse Ox 98.1 F 64 20 127/82 95 07/01/18 15:00 07/01/18 15:00 07/01/18 15:00 07/01/18 15:00 07/01/18 15:00 - Medications Medications: Current Medications Albuterol/Ipratropium (Duoneb 3 Mg/0.5 Mg (3 Ml) Ud) 3 ml INH RQ6 [facility] Last Admin: 07/01/18 13:34 Dose: Not Given Apixaban (Eliquis) 5 mg PO BID [facility] Last Admin: 07/01/18 18:01 Dose: 5 mg Cyanocobalamin (Vitamin B12 1000 Mcg/Ml Inj) 1,000 mcg IM DAILY [facility] Stop: 07/03/18 10:01 Last Admin: 07/01/18 10:57 Dose: 1,000 mcg Diltiazem HCl (Cardizem) 60 mg PO QID [facility] Last Admin: 07/01/18 18:02 Dose: 60 mg Guaifenesin (Mucinex La) 600 mg PO BID [facility] Last Admin: 07/01/18 18:01 Dose: 600 mg Ceftriaxone Sodium 1 gm/ (Sodium Chloride) 100 mls @ 100 mls/hr IVPB Q24H [facility] PRN Reason: Protocol Last Admin: 07/01/18 14:34 Dose: 100 mls/hr Memantine (Namenda) 5 mg PO DAILY [facility] Last Admin: 07/01/18 10:55 Dose: 5 mg Rosuvastatin Calcium (Crestor) 5 mg PO HS [facility] Last Admin: 06/30/18 22:09 Dose: 5 mg - Labs Labs: 07/01/18 13:32 07/01/18 13:32 PT 12.4 SECONDS (9.7-12.2) H 06/30/18 07:28 INR 1.1 06/30/18 07:28 APTT 30 SECONDS (21-34) 06/26/18 13:56 Assessment and Plan - Assessment and Plan (Free Text) Assessment: Stop Cardizem and ASA Start Metoprolol XL 25 daily for life Eliquis 5 mg po bid for 1 month only. After stopping Eliquis can resume ASA 81 daily Will add ARB as out patient F/U with my office on 07/17/18 D/W patient and daughter about the benefits and the risks of anticoagulation with Eliquis
[2018-07-01 13:39] LABS: BASO % 0.4 % (0.0-2.0); EOS % 0.5 % (0.0-4.0); HEMOGLOBIN 12.1 g/dL (11.0-16.0); LYMPH # 1.5 K/uL (1.0-4.3); LYMPH % 22.1 % (20.0-40.0); MEAN CELL VOLUME 93.9 fL (81.0-99.0); MEAN CORPUSCULAR HEMOGLOBIN 31.3 pg (27.0-31.0); MEAN CORPUSCULAR HGB CONC 33.3 g/dL (33.0-37.0); MONO # 0.5 K/uL (0.0-0.8); MONO % 6.9 % (0.0-10.0); NEUT # 4.8 K/uL (1.8-7.0); NEUT % 70.1 % (50.0-75.0); RBC 3.86 Mil/uL (3.80-5.20); RED CELL DISTRIBUTION WIDTH 13.5 % (11.5-14.5); WHITE BLOOD COUNT 6.8 K/uL (4.8-10.8)
[2018-07-01 14:11] LABS: ALB/GLOB RATIO 1.5 (1.0-2.1); ALBUMIN 4.3 g/dL (3.5-5.0); ALT/SGPT 50 U/L (9-52); AST/SGOT 34 U/L (14-36); BLOOD UREA NITROGEN 23 mg/dL (7-17); CALCIUM 8.8 mg/dl (8.6-10.4); GFR NON-AFRICAN AMERICAN > 60
[2018-07-01 16:42] VITALS: BP 127/82; PULSE 64; TEMP 98.1; O2SAT 95
--- NOTE | 2018-07-03 20:31 | DS ---
DISCHARGE DIAGNOSES: New-onset atrial fibrillation, status post transesophageal echocardiography and cardioversion, remained in normal sinus rhythm, cardiomyopathy, hypertension, hyperlipidemia, non-obstructive coronary artery disease, anxiety, depression, osteoarthritis, dementia, osteoporosis. HISTORY OF PRESENT ILLNESS: Ms. Freeman is a 72-year-old female with past medical history of hypertension, hyperlipidemia, osteoarthritis, osteoporosis, dementia, who has been following up with Dr. Go as primary care physician, was sent to emergency room from Dr. Blandon's office who was evaluated for near syncopal, syncopal episode the night before her office visit. Also, the patient was found to be in AFib at doctor's office and the patient was admitted for further management and evaluation. On the day of discharge, the patient was feeling better. Denied any headache, dizziness. Denied any chest pain, shortness of breath or wheezing. Denied any nausea, vomiting, abdominal pain, diarrhea or constipation. Denied any urinary complaints. Denied any leg pains or leg cramps. Denied any other neurologic symptoms. All other systems reviewed and were found to be negative. PHYSICAL EXAMINATION: GENERAL: An elderly female, lying in bed, in no acute distress. VITAL SIGNS: Blood pressure 146/84, pulse 82, respirations 20, temperature 98.1 degrees Fahrenheit, O2 sat is 95% on room air. HEENT: Pupils equal, round and reacting to light and accommodation. Extraocular muscles intact. No icterus. No pallor. No oral thrush. No pharyngeal congestion. No nasal congestion. NECK: Supple. No JVD. LUNGS: Bilateral vesicular breath sounds. No wheezing. No rhonchi. CVS: S1, S2 present, regular. ABDOMEN: Soft, nontender. Bowel sounds present. No guarding. No rigidity. No rebound tenderness noted. EVENTS MANAGER: Alert, awake, oriented x3. No focal deficits noted. EXTREMITIES: No edema. Palpable peripheral pulses. LABORATORY DATA: Labs from 07/01/2018; WBC 6.8, hemoglobin 12.1, hematocrit 36.3, platelets 232. Sodium 141, potassium 4.1, chloride 103, bicarb 29, BUN 23, creatinine 0.7, glucose 117, calcium 8.8, hemoglobin A1c 4.7, phosphorus 3.6, magnesium 2.1, bilirubin 1.3, AST 34, ALT 50, alkaline phosphatase 63, total protein 7.3, albumin 4.3, vitamin B12 183, folate more than 20, TSH 3.29, triglycerides 54, cholesterol 149, LDL 77, HDL 50. UA positive for E. coli. Repeat urine cultures are negative. RPR nonreactive. Hepatitis serology negative. Ultrasound of the abdomen and pelvis, negative. CT head consistent with chronic microvascular ischemic changes. HOSPITAL COURSE: The patient was admitted to telemetry. The patient was started on Cardizem, her rate was controlled and started on anticoagulation with Lovenox. Her echocardiogram was consistent with cardiomyopathy and pulmonary hypertension. The patient was evaluated by Cardiology, underwent cardiac catheterization, cardiac cath consistent with nonobstructive coronary artery disease and her EF is 25%. The patient underwent LOVE and cardioversion and the patient was successfully cardioverted and remained in normal sinus rhythm. Cardiology recommended anticoagulation for six weeks and then aspirin to be given for life and also for evaluation of LifeVest as outpatient, which will be taken care by Cardiology as outpatient. The patient was evaluated by Neurology for abnormal CT head for chronic microvascular changes. The patient was found to be having E. coli UTI, started on Rocephin which was sensitive to ampicillin and the patient was given Augmentin at the time of discharge for UTI. The patient had persistent elevation in liver enzymes. Ultrasound of the abdomen did not reveal anything. Hepatitis serology was negative. The patient was evaluated by GI, was under the impression her transaminitis is secondary to pulmonary hypertension and no further workup recommended. As the patient is doing well and hemodynamically stable, cleared by Cardiology, the patient is being discharged. Advised the patient to follow up with PMD, followup with Cardiology, followup with Neurology as outpatient and GI as outpatient. The patient was given scripts for Eliquis and beta-blockers by Cardiology. Advised the patient to call me or return to the emergency room if any recurrent symptoms or any other symptoms occur. CONDITION UPON DISCHARGE: The patient is alert, awake, oriented x3, and hemodynamically stable. DISCHARGE DIET: Low sodium, low cholesterol, 1800-calorie ADA diet. ACTIVITY: As tolerated. DISCHARGE INSTRUCTIONS: Follow up with PMD. Follow up with Cardiology. Follow up with Neurology. Follow up with GI. DISCHARGE MEDICATIONS: Lipitor 10 mg daily, Augmentin 875 mg p.o. b.i.d. for three days, Namenda 5 mg daily, ibandronate 150 mg every monthly, antibiotics as needed, Eliquis and Lopressor as per Cardiology. Please also refer to discharge instruction sheet given at the time of discharge. Merle Cuevas MD
--- NOTE | 2018-07-05 08:26 | CARD ---
APPROVED REPORT Date of service: 07/01/2018 EKG Measurement Heart [id number] <Conclusion> Sinus rhythm with premature atrial complexes in a pattern of bigeminy Otherwise normal ECG
--- NOTE | 2018-07-05 09:33 | CARD ---
APPROVED REPORT Date of service: 06/30/2018 EXAM: Transesophageal echocardiogram with color flow Doppler and Synchronized Cardioversion. INDICATION Atrial Fibrillation Mitral Valve E/A ratio0.0 TDI E/Lateral E'0.0E/Medial E'0.0 Reason For Test : Rule out Intracardiac Thrombus. PROCEDURE After obtaining informed consent, patient underwent transesophageal echo in the [employer]. Type of Sedation : Conscious Sedation Sedation was provided by anesthesiologist. Sedation was achieved with intravenously. The LOVE was performed complications. Synchronized Cardioversion acheived with 100 Joules after 1 attempt(s). Rhythm following Synchronized Cardioversion: Normal Sinus Rhythm Throughout the procedure, the blood pressure, pulse oximetry, cardiac rhythm, and rate were monitored. The patient tolerated the procedure without adverse effects. Recovery from conscious sedation was uneventful and vital signs were stable. LEFT VENTRICLE The Left Ventricle is moderately dilated. Left ventricle systolic function is moderately to severely impaired. The Ejection Fraction is 30-35%. No left ventricle thrombus noted on this study. There is no ventricular septal defect visualized. RIGHT VENTRICLE The right ventricle is normal size. The right ventricular systolic function is normal. ATRIA The left atrium is severely dilated. There is not thrombus noted in LA and JOHANA The right atrium is mildly dilated. There is Small Atrial Sptel defect Noted with Left to right shunt. Likley membranous type. Small PFO also noted AORTIC VALVE The aortic valve is moderately sclerotic. No aortic regurgitation is present. There is no aortic valvular stenosis. There is no aortic valvular vegetation. MITRAL VALVE Mitral annular calcification is moderate. There is no evidence of mitral valve prolapse. There is no mitral valve stenosis. Mitral regurgitation is moderate to severe. TRICUSPID VALVE The tricuspid valve is normal in structure. There is moderate tricuspid regurgitation. There is no tricuspid valve prolapse or vegetation. There is no tricuspid valve stenosis. PULMONIC VALVE The pulmonary valve is normal in structure. GREAT VESSELS The aortic root is normal in size. <Conclusion> The Left Ventricle is moderately dilated. Left ventricle systolic function is moderately to severely impaired. The Ejection Fraction is 30-35%. The right ventricular systolic function is normal. The left atrium is severely dilated. The right atrium is mildly dilated. There is Small Atrial Sptel defect Noted with Left to right shunt. Likley membranous type. Small PFO also noted The aortic valve is moderately sclerotic. There is no aortic valvular stenosis. Mitral annular calcification is moderate. Mitral regurgitation is moderate to severe. There is moderate tricuspid regurgitation. Electrical Cardioversion: 100 Joules one synch shock converted patient from A Fib to NSR
--- NOTE | 2018-07-05 21:22 | CARDCATH ---
PROCEDURE DATE: 06/29/2018 PROCEDURES: 1. Left and right heart catheterization. 2. Coronary angiogram. CLINICAL INDICATIONS: 1. Exertional angina. 2. Dyspnea. 3. Atrial fibrillation. 4. Hypertension. 5. Acute systolic heart failure. REFERRING PHYSICIAN: Merle Cuevas MD PERFORMING PHYSICIAN: Marcel Joshi MD DESCRIPTION OF PROCEDURE: After informed consent, the patient was prepped and draped in the usual sterile fashion. Lidocaine 2% was given in the right groin for local anesthesia. Using micropuncture technique, a 6-Gambian sheath was introduced into the right common femoral artery. A JL4 6-Gambian diagnostic catheter engaged into left main coronary artery. Contrast injected and left coronary angiogram was done. Then, JR4 6-Gambian diagnostic catheter engaged into right coronary artery. Contrast injected and right coronary angiogram was done. Next, the catheter was exchanged to pigtail catheter. Pigtail catheter was parked into left ventricle across the aortic valve. LV end diastolic pressure measured. Contrast injected and LV angiogram was done. The pigtail catheter was pulled back across the aortic valve. Gradient across the aortic valve was measured. The patient tolerated the procedure well. Postprocedure, radiological supervision and radiological interpretations of the coronary angiogram was done. FINDINGS: 1. Left main coronary artery is patent. 2. LAD and diagonal branches are patent. 3. Left circumflex and obtuse marginal branches are patent. 4. Right coronary artery is dominant or patent but there is a sluggish TIMI2 flow noted in the right coronary artery. 5. LV is mildly dilated. There is severe global hypokinesis. Estimated ejection fraction is 25%. IMPRESSION: 1. Nonobstructive coronaries. 2. Sluggish TIMI2 flow noted in the right coronary artery. Small RV marginal branch is 100% occluded. 3. Dilated left ventricle with ejection fraction of 25%. 4. Recommend medical management. Marcel Joshi MD
== END 2018-07-01 19:15 | disposition home or self-care (01) | DRG 286 ==
LOC: C.ER 13:08 → C.9E 14:51 → C.6T 16:07
PROVIDERS: ADMIT Internal Medicine; ATTEND Internal Medicine
PROC: 4A023N8 Measurement of Cardiac Sampling and Pressure, Bilateral, Percutaneous Approach (ICD-10-PCS; principal; 2018-06-29)
PROC: B2161ZZ Fluoroscopy of Right and Left Heart using Low Osmolar Contrast (ICD-10-PCS; 2018-06-29)
PROC: B2111ZZ Fluoroscopy of Multiple Coronary Arteries using Low Osmolar Contrast (ICD-10-PCS; 2018-06-29)
PROC: B246ZZ4 Ultrasonography of Right and Left Heart, Transesophageal (ICD-10-PCS; 2018-06-30)
PROC: 5A2204Z Restoration of Cardiac Rhythm, Single (ICD-10-PCS; 2018-06-30)
DX: I48.91 Unspecified atrial fibrillation (principal); I50.21 Acute systolic (congestive) heart failure; I20.8 Other forms of angina pectoris; N39.0 Urinary tract infection, site not specified; I11.0 Hypertensive heart disease with heart failure; I25.5 Ischemic cardiomyopathy; I67.9 Cerebrovascular disease, unspecified; I27.20 Pulmonary hypertension, unspecified; K76.1 Chronic passive congestion of liver; M19.90 Unspecified osteoarthritis, unspecified site; E53.8 Deficiency of other specified B group vitamins; M81.0 Age-related osteoporosis without current pathological fracture; E78.00 Pure hypercholesterolemia, unspecified; E78.5 Hyperlipidemia, unspecified; F03.90 Unspecified dementia, unspecified severity, without behavioral disturbance, psychotic disturbance, mood disturbance, and anxiety; W19.XXXA Unspecified fall, initial encounter; R26.81 Unsteadiness on feet; I83.90 Asymptomatic varicose veins of unspecified lower extremity; Z79.82 Long term (current) use of aspirin; Z86.73 Personal history of transient ischemic attack (TIA), and cerebral infarction without residual deficits; Z87.891 Personal history of nicotine dependence; Z80.0 Family history of malignant neoplasm of digestive organs; Z82.49 Family history of ischemic heart disease and other diseases of the circulatory system

== ENCOUNTER 2018-09-28 12:09 | Inpatient (IN) | payer MEDICARE, MEDICAID ==
[2018-09-28 12:12] VITALS: BMI 33.5
[2018-09-28] MEDS ORDERED: Sodium Chloride 0.9% 1,000 ML IV ONE ×4 (12:28→15:42)
[2018-09-28 12:48] LABS: BASO # 0.1 K/uL (0.0-0.2); BASO % 1.3 % (0.0-2.0); EOS # 0.1 K/uL (0.0-0.7); EOS % 2.4 % (0.0-4.0); HEMOGLOBIN 12.5 g/dL (11.0-16.0); LYMPH # 1.4 K/uL (1.0-4.3); MEAN CORPUSCULAR HEMOGLOBIN 30.7 pg (27.0-31.0); MEAN CORPUSCULAR HGB CONC 33.9 g/dL (33.0-37.0); MEAN PLATELET VOLUME 8.8 fL (7.2-11.7); MONO # 0.4 K/uL (0.0-0.8); MONO % 6.3 % (0.0-10.0); NEUT # 3.8 K/uL (1.8-7.0); NRBC % 0.4 % (0.0-2.0); RBC 4.06 Mil/uL (3.80-5.20); RED CELL DISTRIBUTION WIDTH 13.4 % (11.5-14.5); WHITE BLOOD COUNT 5.7 K/uL (4.8-10.8)
[2018-09-28 12:49] LABS: MEAN CELL VOLUME 90.5 fL (81.0-99.0)
[2018-09-28 12:56] LABS: INR 1.2; PROTHROMBIN TIME 12.9 SECONDS (9.7-12.2)
[2018-09-28 13:01] LABS: ALB/GLOB RATIO 1.4 (1.0-2.1); ALBUMIN 4.3 g/dL (3.5-5.0); ALT/SGPT 24 U/L (9-52); AST/SGOT 26 U/L (14-36); BLOOD UREA NITROGEN 17 mg/dL (7-17); CALCIUM 9.2 mg/dl (8.6-10.4); GFR NON-AFRICAN AMERICAN > 60
--- NOTE | 2018-09-28 13:42 | C.PDOC ---
History Of Present Illness 73 y/o female with a PMHx of A Fib, HTN, brought in by ambulance for evaluation of dizziness developed just prior to arrival. Patient reports she was diagnosed with A Fib a few months ago, and has had intermittent spells of dizziness since. Today patient was in line at the pharmacy when she became dizzy and sat down, and 911 was called. There was no LOC or injury. At present time patient denies having any dizziness. Reports she is hungry and wants food. Otherwise she denies any chest pain, SOB, KENNEDY, palpitations, fevers, chills, or URI symptoms. NOte by , from 06/29/18 recent admission due to new onset of Afib. PMHx of Anxiety, Arthritis, Depression, HTN, Hypercholesterolemia and atrial fibrillation, who had cardiac catherization over the course of admission, which showed Non Obstructive coronaries, LOTUS 2 flow in RCA and EF 25%. After cardiac catherization, patient was deemed as a good candidate for LOVE and cardioversion. Patient was successfully cardioverted into NSR. Time Seen by Provider: 09/28/18 12:28 Chief Complaint (Nursing): Dizziness/Lightheaded History Per: Patient History/Exam Limitations: no limitations Onset/Duration Of Symptoms: Mins Current Symptoms Are (Timing): Better Activity At Onset Of Symptoms: Standing Past Medical History Reviewed: Historical Data, Nursing Documentation, Vital Signs Vital Signs: Last Vital Signs Temp 97.5 F L 09/28/18 12:13 Pulse 76 09/28/18 12:13 Resp 18 09/28/18 12:13 BP 124/83 09/28/18 12:13 Pulse Ox 100 09/28/18 12:13 - Medical History PMH: Anxiety, Arthritis, Atrial Fibrillation, Depression, HTN, Hypercholesterolemia Denies: Chronic Kidney Disease Other PMH: Vertigo - [facility] Procedures FLUOROSCOPY OF MULT COR ART USING L OSM CONTRAST (06/26/18) FLUOROSCOPY OF RIGHT AND LEFT HEART USING L OSM CONTRAST (06/26/18) MEASURE CARDIAC SAMPL & PRESSURE, BILATERAL, PERC (06/26/18) MOSQUE OF CARDIAC RHYTHM, SINGLE (06/26/18) ULTRASONOGRAPHY OF RIGHT AND LEFT HEART, TRANSESOPHAGEAL (06/26/18) Family History: States: Unknown Family Hx - Social History Hx Alcohol Use: No Hx Substance Use: No - Immunization History Hx Tetanus Toxoid Vaccination: No Hx Influenza Vaccination: No Hx Pneumococcal Vaccination: No Review Of Systems Constitutional: Negative for: Fever, Chills Eyes: Negative for: Vision Change ENT: Negative for: Nose Congestion, Throat Pain Cardiovascular: Negative for: Chest Pain, Palpitations Respiratory: Negative for: Cough, Shortness of Breath Gastrointestinal: Negative for: Nausea, Vomiting Neurological: Positive for: Dizziness (now improved). Negative for: Weakness, Numbness, Altered Mental Status, Headache, Other (syncope) Physical Exam - Physical Exam Appears: Non-toxic, No Acute Distress Skin: Normal Color, Warm, No Rash Head: Atraumatic, Normacephalic Eye(s): bilateral: Normal Inspection (no nystagmus), PERRL, EOMI Nose: Normal, No Discharge Oral Mucosa: Moist Neck: Normal ROM, Trachea Midline, No Midline Cervical Tenderness, No Parac ervical Tenderness, Supple Chest: Symmetrical Cardiovascular: Rhythm Irregular (Irregularly Irregular) Respiratory: Normal Breath Sounds, No Accessory Muscle Use, No Rales, No Rhonchi, No Wheezing Gastrointestinal/Abdominal: Soft, No Tenderness, No Distention, No Guarding Extremity: Normal ROM, No Calf Tenderness, No Deformity Pulses: Left Dorsalis Pedis: Normal, Right Dorsalis Pedis: Normal Neurological/Psych: Oriented x3, Normal Speech, Normal Cognition, Normal Cranial Nerves, Normal Motor, Normal Sensation, Other (No focal deficits) ED Course And Treatment - Laboratory Results Result Diagrams: 09/28/18 12:42 09/28/18 12:42 Lab Interpretation: No Acute Changes ECG: Interpreted By Me, Viewed By Me (and ED attendning) ECG Interpretation: No Changes From Prior, Abnormal Interpretation Of ECG: AFib@113/min, O2 Sat by Pulse Oximetry: 100 (RA) Pulse Ox Interpretation: Normal - Other Rad CXR X-Ray: Read By Radiologist Interpretation: Impression: Mild to moderate venous congestion. Patchy increased markings at the lung bases. Biapical pleural thickening. Upper lobe granulomatous changes. Linear atelectasis at the right lung base. Mild nodularity at the right lung base. Bilateral hilar prominence. Enlarged ectatic aorta. Cardiomegaly. - CT Scan/US CT Head Other Rad Studies (CT/US): Read By Radiologist CT/US Interpretation: Accession No. : [id number]. Patient Name / ID : LORETTA CEDEÑO / [id number]. Exam Date : 09/28/2018 12:54:35 ( Approved ). Study Comment : Sex / Age : F / 73Y. Creator : Evi Aragon. Dictator : Salinas Barber MD. Wet Silk Hanger : Railroad Construction Director : Salinas Barber MD. Approver2 : Report Date : 09/28/2018 13:04:18. My Comment : . Date of service: 09/28/2018. PROCEDURE: CT HEAD WITHOUT CONTRAST. HISTORY: dizziness. COMPARISON: Comparison made with CT brain dated 06/27/2018. TECHNIQUE: Axial computed tomography images were obtained through the head/brain without intravenous contrast. Radiation dose: Total exam DLP = 937.23 mGy-cm. This CT exam was performed using one or more of the following dose reduction techniques: Automated exposure control, adjustment of the mA and/or kV according to patient size, and/or use of iterative reconstruction technique. FINDINGS: HEMORRHAGE: No acute parenchymal, subarachnoid or extra-axial hemorrhage. BRAIN: Moderate to significant diffuse and confluent chronic white matter ischemic changes seen extending peripherally into the deep and subcortical white matter of both cerebral hemispheres. There is extension of these changes into the white matter tracts of both basal ganglia. Scattered more discrete deep and subcortical white matter and basal nuclei lacunar type infarcts also felt to be present. Note that the possibility of a small hyperacute infarct cannot be completely excluded. Moderate generalized volume loss. Vascular calcifications both carotid siphons and right vertebral artery. VENTRICLES: No obstructive hydrocephalus. CALVARIUM: Calvarium intact.. PARANASAL SINUSES: Unremarkable as visualized. No signif icant inflammatory changes. MASTOID AIR CELLS: Unremarkable as visualized. No inflammatory changes. OTHER FINDINGS: Changes of bilateral cataract surgery. IMPRESSION: No acute intracranial hemorrhage. Moderate to significant chronic white matter and basal nuclei ischemic changes as described. Moderate generalized volume loss. Progress Note: Labs, EKG, CXR, and CT Head ordered and reviewed. Administered 1 L IV fluids and 10 mg Cardizem IV. Pt was palced on card. monitor. Blood work, cardizem 10 mg IV bolus given. On re-eval, HR 80-90'/min, BP 89/56. Mild hyd ration with IVF ordered. case discussed with and admission arranged. Digoxin 0.25 mg IV recommend now and consult with . On re- eval, pt remained asymptomatic, afebrile, hemodynamicaly stable. Non-toxic. BP/HR stable and improved. called for consult. Critical Care Time - Critical Care Note Total Time (in mins): 60 Documented critical care: time excludes all time spent performing seperately billable procedures. Disposition - Disposition Disposition: HOSPITALIZED Disposition Time: 15:01 Condition: FAIR - Clinical Impression Clinical Impression: Atrial fibrillation, Dizziness - PA / BRANCH ASSISTANT / Resident Statement MD/DO has reviewed & agrees with the documentation as recorded. - Scribe Statement The provider has reviewed the documentation as recorded by the Scribty Jacob All medical record entries made by the Henrique were at my direction and personally dictated by me. I have reviewed the chart and agree that the record accurately reflects my personal performance of the history, physical exam, medical decision making, and the department course for this patient. I have also personally directed, reviewed, and agree with the discharge instructions and di sposition.
--- NOTE | 2018-09-28 14:13 | CT ---
Date of service: 09/28/2018 PROCEDURE: CT HEAD WITHOUT CONTRAST. HISTORY: dizziness COMPARISON: Comparison made with CT brain dated 06/27/2018. TECHNIQUE: Axial computed tomography images were obtained through the head/brain without intravenous contrast. Radiation dose: Total exam DLP = 937.23 mGy-cm. This CT exam was performed using one or more of the following dose reduction techniques: Automated exposure control, adjustment of the mA and/or kV according to patient size, and/or use of iterative reconstruction technique. FINDINGS: HEMORRHAGE: No acute parenchymal, subarachnoid or extra-axial hemorrhage. BRAIN: Moderate to significant diffuse and confluent chronic white matter ischemic changes seen extending peripherally into the deep and subcortical white matter of both cerebral hemispheres. There is extension of these changes into the white matter tracts of both basal ganglia. Scattered more discrete deep and subcortical white matter and basal nuclei lacunar type infarcts also felt to be present. Note that the possibility of a small hyperacute infarct cannot be completely excluded. Moderate generalized volume loss. Vascular calcifications both carotid siphons and right vertebral artery. VENTRICLES: No obstructive hydrocephalus. CALVARIUM: Calvarium intact.. PARANASAL SINUSES: Unremarkable as visualized. No significant inflammatory changes. MASTOID AIR CELLS: Unremarkable as visualized. No inflammatory changes. OTHER FINDINGS: Changes of bilateral cataract surgery. IMPRESSION: No acute intracranial hemorrhage. Moderate to significant chronic white matter and basal nuclei ischemic changes as described. Moderate generalized volume loss.
--- NOTE | 2018-09-28 14:29 | RAD ---
Chest x-ray two views HISTORY: Chest pain. COMPARISON: 06/26/2018 FINDINGS: Mild to moderate venous congestion. Patchy increased markings at the lung bases. Biapical pleural thickening. Upper lobe granulomatous changes. Linear atelectasis at the right lung base. Mild nodularity at the right lung base. Bilateral hilar prominence. Enlarged ectatic aorta. Cardiomegaly. Degenerative changes in the spine and shoulders. Impression: Mild to moderate venous congestion. Patchy increased markings at the lung bases. Biapical pleural thickening. Upper lobe granulomatous changes. Linear atelectasis at the right lung base. Mild nodularity at the right lung base. Bilateral hilar prominence. Enlarged ectatic aorta. Cardiomegaly.
[2018-09-28] MEDS ORDERED: Digoxin 500 mcg/2ml (0.5 mg/2ml) Inj IVP ONE (15:24)
[2018-09-28] MEDS ORDERED: Digoxin 500 mcg/2ml (0.5 mg/2ml) Inj ONE (15:50)
[2018-09-28 19:26] VITALS: RESP 20
--- NOTE | 2018-09-28 19:57 | CP.PCM.PN ---
Subjective - Date & Time of Evaluation Date of Evaluation: 09/28/18 Time of Evaluation: 19:30 - Subjective Subjective: H&P dictated #[id number] Objective - Vital Signs/Intake and Output Vital Signs (last 24 hours): Temp Pulse Resp BP Pulse Ox 97.8 F 106 H 20 115/62 100 09/28/18 18:25 09/28/18 18:50 09/28/18 18:25 09/28/18 18:25 09/28/18 18:31 - Medications Medications: Current Medications Aspirin (Ecotrin) 81 mg PO DAILY [facility] Home Med (Atorvastatin [Lipitor]) 10 mg PO DAILY [facility] Home Med (Calcium Carb/Vit D3/Minerals [Calcium 600+D Plus Minerals Tb]) 1 each PO BID [facility] Home [facility] (Ergocalciferol (Vitamin D2) [Vitamin D2]) 2,000 unit PO DAILY [facility] Home Med (Ibandronate Sodium) 150 mg PO DAILY [facility] Sodium Chloride (Sodium Chloride 0.9%) 1,000 mls @ 200 mls/hr IV .Q5H ONE Stop: 09/28/18 20:41 Sodium Chloride (Sodium Chloride 0.9%) 1,000 mls @ 200 mls/hr IV .Q5H ONE Stop: 09/28/18 20:41 Memantine (Namenda) 5 mg PO DAILY [facility] Metoprolol Tartrate (Lopressor) 25 mg PO BID [facility] Pneumococcal Polyvalent Vaccine (Pneumovax 23 Vaccine) 0.5 ml IM .ONCE ONE Stop: 10/01/18 10:01 - Labs Labs: 09/28/18 12:42 09/28/18 12:42 PT 12.9 SECONDS (9.7-12.2) H 09/28/18 12:42 INR 1.2 09/28/18 12:42 APTT 31 SECONDS (21-34) 09/28/18 12:42
[2018-09-28 22:33] LABS: SQUAMOUS EPITHIAL 7 /hpf (0-5); URINE BACTERIA RARE (<OCC); URINE BILIRUBIN NEGATIVE (NEGATIVE); URINE BLOOD 1+ (NEGATIVE); URINE CLARITY Clear (Clear); URINE COLOR Yellow (YELLOW); URINE GLUCOSE (UA) NORMAL (Normal); URINE LEUKOCYTE ESTERASE TRACE Leu/uL (Negative); URINE PROTEIN NEGATIVE (NEGATIVE)
[2018-09-28] MEDS: Enoxaparin 80 mg Syringe SC SCH (22:59)
[2018-09-29 04:13] LABS: LDL CHOLESTEROL 105 mg/dL (0-129)
[2018-09-29 05:08] LABS: FOLATE 11.8 ng/mL
[2018-09-29 05:31] LABS: ALB/GLOB RATIO 1.2 (1.0-2.1); ALBUMIN 3.5 g/dL (3.5-5.0); ALT/SGPT 23 U/L (9-52); AST/SGOT 20 U/L (14-36); BLOOD UREA NITROGEN 15 mg/dL (7-17); CALCIUM 8.6 mg/dl (8.6-10.4); GFR NON-AFRICAN AMERICAN > 60; HDL CHOLESTEROL 48 mg/dL (30-70)
--- NOTE | 2018-09-29 06:23 | HP ---
CHIEF COMPLAINT: Sudden onset of dizziness associated with shortness of breath, nausea, vomiting while she was at the pharmacy. HISTORY OF PRESENT ILLNESS: Ms. Freeman is a 73-year-old female with past medical history of hypertension, hyperlipidemia, anxiety, depression, osteoarthritis, dementia, osteoporosis, nonobstructive coronary artery disease, recently admitted to the hospital in 06/2018, admitted for new onset atrial fibrillation status post LOVE and cardioversion, converted to normal sinus rhythm, status post cardiac catheterization with cardiomyopathy, moderate MR and moderate TR, status post UTI, abnormal liver function test. After the patient was treated and civilized, the patient was discharged from the hospital to be followed up by Cardiology. As per the patient, she was evaluated by Cardiology after hospital discharge and recommended LifeVest for cardiomyopathy. The patient was not willing to wear the LifeVest and today the patient was waiting at the pharmacy, she suddenly felt dizzy associated with shortness of breath, chest tightness, nausea, and vomiting, did not lose any consciousness and her symptoms lasted until she came into the emergency room. EMS was called and the patient was brought into the [facility] ED. In the emergency room, the patient was found to be in atrial fibrillation with rapid ventricular rate and the patient is being admitted for further evaluation and management. When I examined the patient, she denied any headache, dizziness. Denied any chest pain, shortness of breath or wheezing. Denied any nausea, vomiting. Denied any abdominal pain, diarrhea or constipation. Denied any neurological symptoms but complaining of low back pain radiating down both the legs and that she has been taking ibuprofen 800 mg and aspirin. She is claiming that she is not currently on any anticoagulation. PAST MEDICAL HISTORY: Hypertension, hyperlipidemia, dementia, vertigo, osteoarthritis, osteoporosis, cardiomyopathy, recurrent atrial fibrillation, status post cardioversion converted to normal sinus rhythm, status post cardiac catheterization. PAST SURGICAL HISTORY: Underwent surgery for varicose veins in 1975. FAMILY HISTORY: Coronary artery disease in mother and grandmother, both from coronary artery disease. Mother at age 59. Father had history of coronary artery disease and stomach CA. He at age 75. PERSONAL HISTORY: She is , having two daughters. 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 Currently she is living with her daughter. ALLERGIES: SHE IS ALLERGIC TO SEAFOOD. SOCIAL HISTORY: She is an ex-smoker, quit smoking about 45 years ago. Smoked two packs per day for 20 years. Denied any alcohol or drug abuse. HOME MEDICATIONS: Include amlodipine 10 mg daily, Namenda 5 mg daily, alendronate 150 mg daily, vitamin D 2000 units daily, calcium supplement, Lipitor 10 mg daily, aspirin 81 mg daily. REVIEW OF SYSTEMS: As described in history of present illness. All other systems reviewed and were found to be negative. PHYSICAL EXAMINATION: GENERAL: On examination, elderly female, lying in bed, in no acute distress. VITAL SIGNS: Blood pressure 113/68, pulse 106, respirations 20, temperature 97.8 degrees Fahrenheit, O2 sat is 95% on room air. HEENT: Pupils equal, round, and reacting to light and accommodation. Extraocular muscles intact. No icterus. No pallor. No oral thrush. No pharyngeal congestion. NECK: Supple. No JVD. LUNGS: Bilateral vesicular breath sounds. No wheezing. Basilar crackles heard. CVS: S1, S2 present. Irregularly irregular. ABDOMEN: Soft. Nontender. Bowel sounds present. No guarding. No rigidity. No rebound tenderness noted. 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 No focal deficits noted. EXTREMITIES: No edema. Palpable peripheral pulses. LABORATORY DATA: Labs done from emergency room: WBC 5.7, hemoglobin 12.5, hematocrit 36.8, platelets 239. PT 12.9, INR 1.2, PTT 31. Sodium 138, potassium 4, chloride 102, bicarb 25, BUN 17, creatinine 0.7, glucose 100, calcium 9.2. Total bilirubin 2.7. AST 26, ALT 24, alkaline phosphatase 98. Cardiac enzymes x2 negative. Total protein 7.5, albumin 4.3. UA: Specific gravity 1.017, pH 5, blood 1+, nitrite negative, wbc 2, rbc 2, otherwise negative. CT head consistent with moderate significant chronic white matter and basal nuclei, ischemic changes, moderate generalized volume loss. No acute intracranial hemorrhage. Chest x-ray consistent with [id number] venous congestion patch, increased markings at the bases, biapical pleural thickening, linear atelectasis, bilateral hilar prominence, enlarged/ectatic aorta, cardiomegaly. EKG consistent with atrial fibrillation with rapid ventricular rate at 112 beats per minute. ASSESSMENT AND PLAN: Elderly female with history of hypertension, hyperlipidemia, osteoarthritis, osteoporosis, dementia, vertigo, recent admission for atrial fibrillation, status post cardioversion and converted to normal sinus rhythm and status post cardiac catheterization consistent with cardiomyopathy and nonobstructive coronary artery disease. Received six weeks of anticoagulation and was referred for LifeVest. The patient refused LifeVest, came into the emergency department for sudden onset of dizziness associated with shortness of breath, nausea, vomiting and chest tightness. In the emergency department, the patient was found to be in atrial fibrillation and the patient is being admitted for further management. 1. Recurrent atrial fibrillation, status post cardioversion. 2. Dizziness probably secondary to recurrent atrial fibrillation, rule out acute coronary syndrome. 3. Cardiomyopathy with ejection fraction 25% on recent catheterization and transesophageal echocardiography. 4. History of hypertension. 5. History of hyperlipidemia. 6. Anxiety, depression. 7. Dementia. 8. Osteoporosis. 9. Osteoarthritis. PLAN: The patient is being admitted to telemetry. We will do serial cardiac enzymes, serial EKGs. We will check echocardiogram. The patient received Cardizem in the emergency room with which her blood pressure dropped to 80s and the patient was given fluid boluses. Her blood pressure remains stable. We will hold Cardizem and we will hold any Lasix as the patient's blood pressures are borderline in the ED. We will give metoprolol 25 mg p.o. b.i.d. We will give anticoagulation with Lovenox. Repeat echocardiogram. We will obtain Cardiology consult with Dr. Joshi. We will continue with Namenda 5 mg daily, Crestor 5 mg p.o. h.s. We will repeat labs in a.m. We will add further recommendations as her clinical course progresses. Merle Cuevas MD
[2018-09-29 07:54] LABS: BASO % 0.4 % (0.0-2.0); EOS # 0.2 K/uL (0.0-0.7); EOS % 4.8 % (0.0-4.0); HEMOGLOBIN 12.8 g/dL (11.0-16.0); LYMPH # 1.7 K/uL (1.0-4.3); MEAN CELL VOLUME 90.2 fL (81.0-99.0); MEAN CORPUSCULAR HEMOGLOBIN 30.6 pg (27.0-31.0); MEAN PLATELET VOLUME 8.9 fL (7.2-11.7); MONO # 0.3 K/uL (0.0-0.8); MONO % 7.3 % (0.0-10.0); NEUT # 2.1 K/uL (1.8-7.0); NEUT % 48.5 % (50.0-75.0); RBC 4.17 Mil/uL (3.80-5.20); RED CELL DISTRIBUTION WIDTH 13.6 % (11.5-14.5); WHITE BLOOD COUNT 4.4 K/uL (4.8-10.8)
[2018-09-29] MEDS: Calcium-Vit D 500 mg-200 Units Tab UD PO SCH ×2 (09:41→17:59)
[2018-09-29] MEDS: Enoxaparin 80 mg Syringe SC SCH ×2 (09:41→22:03)
[2018-09-29] MEDS ORDERED: IBANDRONATE SODIUM 150 MG PO SCH (10:00)
--- NOTE | 2018-09-29 10:01 | CP.PCM.PN ---
Subjective - Date & Time of Evaluation Date of Evaluation: 09/29/18 Time of Evaluation: 10:01 - Subjective Subjective: Progress note dictated #[id number] Objective - Vital Signs/Intake and Output Vital Signs (last 24 hours): Temp Pulse Resp BP Pulse Ox 97.7 F 75 20 104/75 97 09/29/18 08:04 09/29/18 08:04 09/29/18 08:04 09/29/18 08:04 09/29/18 08:04 - Medications Medications: Current Medications Aspirin (Ecotrin) 81 mg PO DAILY [facility] Last Admin: 09/29/18 09:41 Dose: 81 mg Calcium/Vitamin D (Oyster Shell Calcium/Vitamin D 500 Mg-200 Iu) 1 tab PO BID [facility] Last Admin: 09/29/18 09:41 Dose: 1 tab Enoxaparin Sodium (Lovenox) 80 mg SC Q12 [facility] Last Admin: 09/29/18 09:41 Dose: 80 mg Ergocalciferol (Drisdol 50,000 Intl Units Cap) 1 cap PO QWK [facility] Home Med (Ibandronate Sodium) 150 mg PO DAILY [facility] Memantine (Namenda) 5 mg PO DAILY [facility] Last Admin: 09/29/18 09:41 Dose: 5 mg Metoprolol Tartrate (Lopressor) 25 mg PO BID [facility] Last Admin: 09/28/18 20:44 Dose: 25 mg Pneumococcal Polyvalent Vaccine (Pneumovax 23 Vaccine) 0.5 ml IM .ONCE ONE Stop: 10/01/18 10:01 Rosuvastatin Calcium (Crestor) 5 mg PO HS [facility] Last Admin: 09/28/18 21:37 Dose: 5 mg - Labs Labs: 09/29/18 07:42 09/29/18 03:47 PT 12.9 SECONDS (9.7-12.2) H 09/28/18 12:42 INR 1.2 09/28/18 12:42 APTT 31 SECONDS (21-34) 09/28/18 12:42
--- NOTE | 2018-09-29 20:32 | PN ---
DATE: 09/29/2018 SUBJECTIVE: The patient is seen and examined at bedside. The patient is feeling much better. Denies any dizziness. Denies any chest pain, shortness of breath, or wheezing. Denies any other neurologic symptoms. PHYSICAL EXAMINATION: GENERAL: Elderly female, lying in bed, in no acute distress. VITAL SIGNS: Blood pressure 104/53, pulse 93, respirations 20, temperature 97.7 degrees Fahrenheit, and O2 saturations 97% on room air. HEENT: Pupils equal, round, and reacting to light and accommodation. Extraocular muscles are intact. No icterus. No pallor. No oral thrush. No pharyngeal congestion. NECK: Supple. No JVD. LUNGS: Bilateral vesicular breath sounds. No wheezing. No rhonchi. CARDIOVASCULAR SYSTEM: S1 and S2 present, irregularly irregular. ABDOMEN: Soft. Nontender. Bowel sounds are present. No guarding. No rigidly. No rebound tenderness noted. CENTRAL NERVOUS SYSTEM: Alert, awake, and oriented x3. No focal deficits noted. EXTREMITIES: No edema. Palpable peripheral pulses. MEDICATIONS: Include aspirin 81 mg daily, vitamin D, Lovenox 80 mg subcu every 12 hours, Namenda 5 mg daily, Lopressor 25 mg daily, and Crestor 5 mg p.o. at bedtime. LABORATORY DATA: Labs done from this morning: WBC 4.4, hemoglobin 12.8, hematocrit 37.7, and platelets 250. Sodium 138, potassium 3.8, chloride 103, bicarbonate 27, BUN 15, creatinine 0.6, glucose 105, hemoglobin A1c 4.5, calcium 8.6, phosphorus 4.1, and magnesium 2. Total bilirubin 2.6. Cardiac enzymes x3 negative. B12 is 188, folate 11.8. TSH 4.69. Echo ordered, not done yet. ASSESSMENT AND PLAN: Elderly female with history of hypertension, hyperlipemia, cardiomyopathy, anxiety, depression, dementia, osteoarthritis, osteoporosis, nonobstructive coronary artery disease, status post cardiac catheterization and status post transesophageal echocardiography with cardioversion converted to normal sinus rhythm in 06/2018, admitted for recurrent atrial fibrillation with rapid ventricular rate. Rate is fairly controlled on Lopressor and started on anticoagulation at therapeutic doses. Cardiac enzymes are negative so far. We will continue with other current medications. We will follow up with Cardiology. Repeat echocardiogram. We will add further recommendation as her clinical course progresses. Merle Cuevas MD
--- NOTE | 2018-09-29 21:54 | CARD ---
APPROVED REPORT Date of service: 09/28/2018 EKG Measurement Heart [id number] <Conclusion> Atrial fibrillation with rapid ventricular response Abnormal ECG
--- NOTE | 2018-09-30 06:28 | CP.PCM.CON ---
History of Present Illness - History of Present Illness History of Present Illness: 73 F known to to me with hx of Non isch CMP and A Fib s/p Cardioversion now back to A Fib Neurological symptoms and hx of CVA Patient will need fci anticoagulation MUGA scan re assess EF Neuro consult for dizziness and neuro symptoms Past Patient History - Infectious Disease Hx of Infectious Diseases: None - Past Medical History & Family History Past Medical History?: Yes - Past Social History Smoking Status: Never Smoked - CARDIAC Hx Hypercholesterolemia: Yes Hx Hypertension: Yes - PULMONARY Hx Respiratory Disorders: No - NEUROLOGICAL Hx Neurological Disorder: Yes Hx Vertigo: Yes - HEENT Hx HEENT Problems: No - RENAL Hx Chronic Kidney Disease: No - ENDOCRINE/METABOLIC Hx Endocrine Disorders: No - HEMATOLOGICAL/ONCOLOGICAL Hx Blood Disorders: No - INTEGUMENTARY Hx Dermatological Problems: No - MUSCULOSKELETAL/RHEUMATOLOGICAL Hx Arthritis: Yes - GASTROINTESTINAL Hx Gastrointestinal Disorders: No - GENITOURINARY/GYNECOLOGICAL Hx Genitourinary Disorders: No - PSYCHIATRIC Hx Psychophysiologic Disorder: Yes Hx Anxiety: Yes Hx Depression: Yes Hx Substance Use: No - SURGICAL HISTORY Hx Surgeries: Yes Other/Comment: surgery on right foot for bunion and right leg for varicose veins - ANESTHESIA Hx Anesthesia: Yes Hx Anesthesia Reactions: No Hx Malignant Hyperthermia: No Has any member of the family had a problem w/ anesthesia?: No Meds Allergies/Adverse Reactions: Allergies Allergy/AdvReac Type Severity Reaction Status Date / Time shellfish derived Allergy RASH Verified 09/28/18 19:02 ibuprofen AdvReac DIZZINESS Verified 09/28/18 19:03 - Medications Medications: Current Medications Aspirin (Ecotrin) 81 mg PO DAILY [facility] Last Admin: 09/29/18 09:41 Dose: 81 mg Calcium/Vitamin D (Oyster Shell Calcium/Vitamin D 500 Mg-200 Iu) 1 tab PO BID [facility] Last Admin: 09/29/18 17:59 Dose: 1 tab Cyanocobalamin (Vitamin B12 1000 Mcg/Ml Inj) 1,000 mcg IM DAILY [facility] Stop: 10/05/18 10:01 Last Admin: 09/29/18 10:56 Dose: 1,000 mcg Enoxaparin Sodium (Lovenox) 80 mg SC Q12 [facility] Last Admin: 09/29/18 22:03 Dose: 80 mg Ergocalciferol (Drisdol 50,000 Intl Units Cap) 1 cap PO QWK [facility] Memantine (Namenda) 5 mg PO DAILY [facility] Last Admin: 09/29/18 09:41 Dose: 5 mg Metoprolol Tartrate (Lopressor) 25 mg PO BID [facility] Last Admin: 09/29/18 17:59 Dose: 25 mg Pneumococcal Polyvalent Vaccine (Pneumovax 23 Vaccine) 0.5 ml IM .ONCE ONE Stop: 10/01/18 10:01 Rosuvastatin Calcium (Crestor) 5 mg PO [facility] Last Admin: 09/29/18 22:03 Dose: 5 mg Results - Vital Signs Recent Vital Signs: Last Vital Signs Temp 97.5 F L 09/29/18 23:11 Pulse 100 H 09/30/18 02:43 Resp 20 09/29/18 23:11 BP 103/73 09/29/18 23:11 Pulse Ox 93 L 09/29/18 23:11 - Labs Result Diagrams: 09/29/18 07:42 09/29/18 03:47 Labs: Laboratory Results - last 24 hr 09/29/18 09/29/18 09/29/18 06:26 07:42 07:42 WBC 4.4 L RBC 4.17 Hgb 12.8 Hct 37.7 MCV 90.2 MCH 30.6 MCHC 34.0 RDW 13.6 Plt Count 250 MPV 8.9 Neut % (Auto) 48.5 L Lymph % (Auto) 39.0 [place] % (Auto) 7.3 Eos % (Auto) 4.8 H Baso % (Auto) 0.4 Neut # (Auto) 2.1 Lymph # (Auto) 1.7 [place] # (Auto) 0.3 Eos # (Auto) 0.2 Baso # (Auto) 0.0 POC Glucose (mg/dL) 87 Hemoglobin A1c 4.5 Troponin I 09/29/18 09/29/18 09/29/18 11:18 12:24 16:07 WBC RBC Hgb Hct MCV MCH MCHC RDW Plt Count MPV Neut % (Auto) Lymph % (Auto) [place] % (Auto) Eos % (Auto) Baso % (Auto) Neut # (Auto) Lymph # (Auto) [place] # (Auto) Eos # (Auto) Baso # (Auto) POC Glucose (mg/dL) 126 H 94 Hemoglobin A1c Troponin I < 0.0120 09/29/18 21:23 WBC RBC Hgb Hct MCV MCH MCHC RDW Plt Count MPV Neut % (Auto) Lymph % (Auto) [place] % (Auto) Eos % (Auto) Baso % (Auto) Neut # (Auto) Lymph # (Auto) [place] # (Auto) Eos # (Auto) Baso # (Auto) POC Glucose (mg/dL) 108 Hemoglobin A1c Troponin I
[2018-09-30 06:31] LABS: BASO % 1.1 % (0.0-2.0); EOS # 0.2 K/uL (0.0-0.7); EOS % 4.7 % (0.0-4.0); HEMOGLOBIN 12.2 g/dL (11.0-16.0); LYMPH # 1.4 K/uL (1.0-4.3); LYMPH % 35.6 % (20.0-40.0); MEAN CELL VOLUME 89.5 fL (81.0-99.0); MEAN CORPUSCULAR HEMOGLOBIN 30.2 pg (27.0-31.0); MEAN CORPUSCULAR HGB CONC 33.7 g/dL (33.0-37.0); MEAN PLATELET VOLUME 8.9 fL (7.2-11.7); MONO # 0.3 K/uL (0.0-0.8); MONO % 8.3 % (0.0-10.0); NEUT % 50.3 % (50.0-75.0); NRBC % 0.1 % (0.0-2.0); RBC 4.03 Mil/uL (3.80-5.20); RED CELL DISTRIBUTION WIDTH 13.3 % (11.5-14.5)
[2018-09-30 07:12] LABS: ALB/GLOB RATIO 1.2 (1.0-2.1); ALBUMIN 3.6 g/dL (3.5-5.0); ALT/SGPT 17 U/L (9-52); AST/SGOT 20 U/L (14-36); BLOOD UREA NITROGEN 14 mg/dL (7-17); CALCIUM 8.9 mg/dl (8.6-10.4); GFR NON-AFRICAN AMERICAN > 60
--- NOTE | 2018-09-30 07:30 | CP.PCM.CON ---
History of Present Illness - History of Present Illness History of Present Illness: consult dictated RECURRENT VBI WITH Hx AFIB CONTINUE ELIQUIS WITH ASA MRI/MRA /CAROTID/EEG FALL PRECAUTION Past Patient History - Infectious Disease Hx of Infectious Diseases: None - Past Medical History & Family History Past Medical History?: Yes - Past Social History Smoking Status: Never Smoked - CARDIAC Hx Hypercholesterolemia: Yes Hx Hypertension: Yes - PULMONARY Hx Respiratory Disorders: No - NEUROLOGICAL Hx Neurological Disorder: Yes Hx Vertigo: Yes - HEENT Hx HEENT Problems: No - RENAL Hx Chronic Kidney Disease: No - ENDOCRINE/METABOLIC Hx Endocrine Disorders: No - HEMATOLOGICAL/ONCOLOGICAL Hx Blood Disorders: No - INTEGUMENTARY Hx Dermatological Problems: No - MUSCULOSKELETAL/RHEUMATOLOGICAL Hx Arthritis: Yes - GASTROINTESTINAL Hx Gastrointestinal Disorders: No - GENITOURINARY/GYNECOLOGICAL Hx Genitourinary Disorders: No - PSYCHIATRIC Hx Psychophysiologic Disorder: Yes Hx Anxiety: Yes Hx Depression: Yes Hx Substance Use: No - SURGICAL HISTORY Hx Surgeries: Yes Other/Comment: surgery on right foot for bunion and right leg for varicose veins - ANESTHESIA Hx Anesthesia: Yes Hx Anesthesia Reactions: No Hx Malignant Hyperthermia: No Has any member of the family had a problem w/ anesthesia?: No Meds Allergies/Adverse Reactions: Allergies Allergy/AdvReac Type Severity Reaction Status Date / Time shellfish derived Allergy RASH Verified 09/28/18 19:02 ibuprofen AdvReac DIZZINESS Verified 09/28/18 19:03 - Medications Medications: Current Medications Apixaban (Eliquis) 5 mg PO DAILY [facility] Aspirin (Ecotrin) 81 mg PO DAILY [facility] Last Admin: 09/29/18 09:41 Dose: 81 mg Calcium/Vitamin D (Oyster Shell Calcium/Vitamin D 500 Mg-200 Iu) 1 tab PO BID [facility] Last Admin: 09/29/18 17:59 Dose: 1 tab Cyanocobalamin (Vitamin B12 1000 Mcg/Ml Inj) 1,000 mcg IM DAILY [facility] Stop: 10/05/18 10:01 Last Admin: 09/29/18 10:56 Dose: 1,000 mcg Enoxaparin Sodium (Lovenox) 80 mg SC Q12 [facility] Last Admin: 09/29/18 22:03 Dose: 80 mg Ergocalciferol (Drisdol 50,000 Intl Units Cap) 1 cap PO QWK [facility] Memantine (Namenda) 5 mg PO DAILY [facility] Last Admin: 09/29/18 09:41 Dose: 5 mg Metoprolol Tartrate (Lopressor) 25 mg PO BID [facility] Last Admin: 09/29/18 17:59 Dose: 25 mg Pneumococcal Polyvalent Vaccine (Pneumovax 23 Vaccine) 0.5 ml IM .ONCE ONE Stop: 10/01/18 10:01 Rosuvastatin Calcium (Crestor) 5 mg PO HS [facility] Last Admin: 09/29/18 22:03 Dose: 5 mg Results - Vital Signs Recent Vital Signs: Last Vital Signs Temp 97.5 F L 09/29/18 23:11 Pulse 100 H 09/30/18 02:43 Resp 20 09/29/18 23:11 BP 103/73 09/29/18 23:11 Pulse Ox 93 L 09/29/18 23:11 - Labs Result Diagrams: 09/30/18 06:25 09/30/18 06:25 Labs: Laboratory Results - last 24 hr 09/29/18 09/29/18 09/29/18 07:42 07:42 11:18 WBC 4.4 L RBC 4.17 Hgb 12.8 Hct 37.7 MCV 90.2 MCH 30.6 MCHC 34.0 RDW 13.6 Plt Count 250 MPV 8.9 Neut % (Auto) 48.5 L Lymph % (Auto) 39.0 [place] % (Auto) 7.3 Eos % (Auto) 4.8 H Baso % (Auto) 0.4 Neut # (Auto) 2.1 Lymph # (Auto) 1.7 [place] # (Auto) 0.3 Eos # (Auto) 0.2 Baso # (Auto) 0.0 Sodium Potassium Chloride Carbon Dioxide Anion Gap BUN Creatinine Est GFR ( Amer) Est GFR (Non-Af Amer) POC Glucose (mg/dL) 126 H Random Glucose Hemoglobin A1c 4.5 Calcium Total Bilirubin AST ALT Alkaline Phosphatase Troponin I Total Protein Albumin Globulin Albumin/Globulin Ratio 09/29/18 09/29/18 09/29/18 12:24 16:07 21:23 WBC RBC Hgb Hct MCV MCH MCHC RDW Plt Count MPV Neut % (Auto) Lymph % (Auto) [place] % (Auto) Eos % (Auto) Baso % (Auto) Neut # (Auto) Lymph # (Auto) [place] # (Auto) Eos # (Auto) Baso # (Auto) Sodium Potassium Chloride Carbon Dioxide Anion Gap BUN Creatinine Est GFR ( Amer) Est GFR (Non-Af Amer) POC Glucose (mg/dL) 94 108 Random Glucose Hemoglobin A1c Calcium Total Bilirubin AST ALT Alkaline Phosphatase Troponin I < 0.0120 Total Protein Albumin Globulin Albumin/Globulin Ratio 09/30/18 09/30/18 09/30/18 06:15 06:25 06:25 WBC 4.0 L RBC 4.03 Hgb 12.2 Hct 36.1 MCV 89.5 MCH 30.2 MCHC 33.7 RDW 13.3 Plt Count 203 MPV 8.9 Neut % (Auto) 50.3 Lymph % (Auto) 35.6 [place] % (Auto) 8.3 Eos % (Auto) 4.7 H Baso % (Auto) 1.1 Neut # (Auto) 2.0 Lymph # (Auto) 1.4 [place] # (Auto) 0.3 Eos # (Auto) 0.2 Baso # (Auto) 0.0 Sodium 140 Potassium 3.7 Chloride 105 Carbon Dioxide 27 Anion Gap 11 BUN 14 Creatinine 0.5 L Est GFR ( Amer) > 60 Est GFR (Non-Af Amer) > 60 POC Glucose (mg/dL) 99 Random Glucose 101 Hemoglobin A1c Calcium 8.9 Total Bilirubin 1.9 H AST 20 ALT 17 Alkaline Phosphatase 79 Troponin I Total Protein 6.5 Albumin 3.6 Globulin 2.9 Albumin/Globulin Ratio 1.2
[2018-09-30] MEDS: Calcium-Vit D 500 mg-200 Units Tab UD PO SCH ×2 (10:00→17:57)
[2018-09-30] MEDS: Enoxaparin 80 mg Syringe SC SCH (10:08)
[2018-09-30 11:23] LABS: FREE T4 1.44 ng/dL (0.78-2.19)
--- NOTE | 2018-09-30 12:09 | CP.PCM.PN ---
Subjective - Date & Time of Evaluation Date of Evaluation: 09/30/18 Time of Evaluation: 12:09 - Subjective Subjective: Progress note dictated #[id number] Objective - Vital Signs/Intake and Output Vital Signs (last 24 hours): Temp Pulse Resp BP Pulse Ox 97.9 F 81 20 111/82 99 09/30/18 08:00 09/30/18 09:59 09/30/18 08:00 09/30/18 10:00 09/30/18 08:00 - Medications Medications: Current Medications Apixaban (Eliquis) 5 mg PO BID [facility] Last Admin: 09/30/18 11:25 Dose: 5 mg Calcium/Vitamin D (Oyster Shell Calcium/Vitamin D 500 Mg-200 Iu) 1 tab PO BID [facility] Last Admin: 09/30/18 10:00 Dose: 1 tab Cyanocobalamin (Vitamin B12 1000 Mcg/Ml Inj) 1,000 mcg IM DAILY [facility] Stop: 10/05/18 10:01 Last Admin: 09/30/18 10:08 Dose: Not Given Ergocalciferol (Drisdol 50,000 Intl Units Cap) 1 cap PO QWK [facility] Memantine (Namenda) 5 mg PO DAILY [facility] Last Admin: 09/30/18 10:01 Dose: 5 mg Metoprolol Tartrate (Lopressor) 25 mg PO BID [facility] Last Admin: 09/30/18 10:00 Dose: 25 mg Pneumococcal Polyvalent Vaccine (Pneumovax 23 Vaccine) 0.5 ml IM .ONCE ONE Stop: 10/01/18 10:01 Rosuvastatin Calcium (Crestor) 5 mg PO HS [facility] Last Admin: 09/29/18 22:03 Dose: 5 mg - Labs Labs: 09/30/18 06:25 09/30/18 06:25 PT 12.9 SECONDS (9.7-12.2) H 09/28/18 12:42 INR 1.2 09/28/18 12:42 APTT 31 SECONDS (21-34) 09/28/18 12:42
--- NOTE | 2018-09-30 13:22 | CON ---
DATE: 09/30/2018 DATE OF ADMISSION: 09/29/2018 ATTENDING PHYSICIAN: Merle Cuevas MD LOCATION: The patient's room number 552, bed B. REASON FOR CONSULTATION: Dizziness. CHIEF COMPLAINT: The patient was brought in to [facility] with a history of abrupt onset of dizziness with losing balance. From neurological point of view, I was called in to evaluate her for further management. HISTORY OF PRESENT ILLNESS: Ms. Sarai Freeman is a 73-year-old right-handed apprehensive female presenting with abrupt onset of dizziness associating with losing balance. She claims that this has been happening intermittently. It does not last for longer. Not associating with nausea or vomiting or any double vision. Not associating with speech impairment. No history of involuntary movement. No history of fall. No history of change in mental status during these episodes. 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 ALLERGIES: TO FISH. PERSONAL HISTORY: Denies smoking or alcohol use. REVIEW OF SYSTEMS: A 12-point system being reviewed. From neuro, recurrent episodes of dizziness. MEDICATIONS: Crestor, aspirin, Lopressor, Lovenox, Namenda, and B12. PHYSICAL EXAMINATION: VITAL SIGNS: Blood pressure 103/73, mean artery pressure of 83, respiratory rate 18, pulse rate 100, irregularly irregular with a temperature of 97.5. NECK: Supple. No carotid bruits. HEART: Sounds irregularly irregular. EXTREMITIES: Normal. No edema in legs. NEUROLOGIC EXAMINATION: Mental status examination: She is awake, alert, oriented to person, place, and time. Speech is clear. Naming, repetition, fluency, comprehension, all within normal. No sign of hallucination. No sign of suicidal ideation. Seems to be depressed and she would like to go home. Cranial nerve examination: Visual field intact. Pupils reactive to light. Extraocular movement normal. No nystagmus. Mild facial asymmetry manifesting as flattening of the right nasolabial fold. Hearing is normal. Tongue is midline. Good gag. Motor examination: Outstretched hand with eyes closed, no drift noted. Power is symmetric on either side. Deep tendon reflexes biceps, brachialis, triceps, knee, ankle all are absent. Plantars are downgoing. Sensory examination: Grossly intact. No cortical sensory loss. Coordination: [id number] test is intact. Gait: The patient refused to get out of the bed. CONCLUSION: Ms. Sarai Freeman, as per neurological examination and history, presenting with posterior cerebral artery dysfunction manifesting as a recurrent episode of vertigo with ataxia. Considering her history of atrial fibrillation, the patient should be considered. This probably is a cardioembolic phenomenon. The patient should be on long-term anticoagulation with low dose of aspirin for better stroke prophylaxis. Continue statin with blood pressure control to keep the mean artery pressure around 100. RECOMMENDATION: 1. In the meantime, I would like her to have MRI of the brain, MR angiogram of neck at [facility] to rule out any vascular pathology. 2. Echocardiogram to rule out cardioembolic phenomenon. 3. Carotid Doppler to assess the stenosis. 4. EEG to rule out any paroxysmal activities, which may be hidden at this point. Continue the present management, keep the patient at fall precaution. The patient will be followed while she is in the hospital. Savage Garcia MD MTDGeoff
--- NOTE | 2018-09-30 13:32 | CP.PCM.PN ---
<Mandi Finn - Last Filed: 09/30/18 13:29> Subjective - Date & Time of Evaluation Date of Evaluation: 09/30/18 Time of Evaluation: 13:29 - Subjective Subjective: Cardiology Follow Up Patient was seen and examined at bedside. Patient denied any current chest pain, shortness of breath, or palpitations. Objective - Vital Signs/Intake and Output Vital Signs (last 24 hours): Temp Pulse Resp BP Pulse Ox 97.9 F 108 H 20 111/82 99 09/30/18 08:00 09/30/18 12:49 09/30/18 08:00 09/30/18 10:00 09/30/18 08:00 - Medications Medications: Current Medications Apixaban (Eliquis) 5 mg PO BID [facility] Last Admin: 09/30/18 11:25 Dose: 5 mg Calcium/Vitamin D (Oyster Shell Calcium/Vitamin D 500 Mg-200 Iu) 1 tab PO BID [facility] Last Admin: 09/30/18 10:00 Dose: 1 tab Cyanocobalamin (Vitamin B12 1000 Mcg/Ml Inj) 1,000 mcg IM DAILY [facility] Stop: 10/05/18 10:01 Last Admin: 09/30/18 10:08 Dose: Not Given Ergocalciferol (Drisdol 50,000 Intl Units Cap) 1 cap PO QWK [facility] Memantine (Namenda) 5 mg PO DAILY [facility] Last Admin: 09/30/18 10:01 Dose: 5 mg Metoprolol Tartrate (Lopressor) 25 mg PO BID [facility] Last Admin: 09/30/18 10:00 Dose: 25 mg Pneumococcal Polyvalent Vaccine (Pneumovax 23 Vaccine) 0.5 ml IM .ONCE ONE Stop: 10/01/18 10:01 Rosuvastatin Calcium (Crestor) 5 mg PO HS [facility] Last Admin: 09/29/18 22:03 Dose: 5 mg - Labs Labs: 09/30/18 06:25 09/30/18 06:25 PT 12.9 SECONDS (9.7-12.2) H 09/28/18 12:42 INR 1.2 09/28/18 12:42 APTT 31 SECONDS (21-34) 09/28/18 12:42 - Constitutional Appears: No Acute Distress - Head Exam Head Exam: NORMAL INSPECTION, NORMOCEPHALIC - Eye Exam Eye Exam: EOMI, Normal appearance, PERRL - ENT Exam ENT Exam: Mucous Membranes Moist - Respiratory Exam Respiratory Exam: Clear to Ausculation Bilateral, NORMAL BREATHING PATTERN. absent: Decreased Breath Sounds - Cardiovascular Exam Cardiovascular Exam: +S1, +S2 - GI/Abdominal Exam GI & Abdominal Exam: Soft, Normal Bowel Sounds. absent: Distended, Tenderness - Extremities Exam Extremities Exam: Normal Inspection. absent: Pedal Edema, Tenderness - Neurological Exam Neurological Exam: Alert, Awake, Oriented x3 - Psychiatric Exam Psychiatric exam: Normal Affect, Normal Mood - Skin Skin Exam: Dry, Intact, Normal Color, Warm Assessment and Plan - Assessment and Plan (Free Text) Plan: Atrial Fibrillation s/p cardioversion, reverted back to AFib Nonischemic Cardiomyopathy Imaging: - MUGA - ordered, pending results Management: - Will need superintendent container terminal anticoagulation, started Eliquis 5mg PO BID only - Thyroid studies, normal - Recommend consult for Neurology, for concerns of CVA Case discussed with Mandi Soni DO, PGY2 <Marcel Joshi - Last Filed: 09/30/18 22:20> Objective - Vital Signs/Intake and Output Vital Signs (last 24 hours): Temp Pulse Resp BP Pulse Ox 97.3 F L 99 H 20 130/75 98 09/30/18 16:00 09/30/18 16:00 09/30/18 16:00 09/30/18 17:57 09/30/18 16:00 - Medications Medications: Current Medications Apixaban (Eliquis) 5 mg PO BID [facility] Last Admin: 09/30/18 17:57 Dose: 5 mg Calcium/Vitamin D (Oyster Shell Calcium/Vitamin D 500 Mg-200 Iu) 1 tab PO BID [facility] Last Admin: 09/30/18 17:57 Dose: 1 tab Cyanocobalamin (Vitamin B12 1000 Mcg/Ml Inj) 1,000 mcg IM DAILY [facility] Stop: 10/05/18 10:01 Last Admin: 09/30/18 10:08 Dose: Not Given Ergocalciferol (Drisdol 50,000 Intl Units Cap) 1 cap PO QWK [facility] Memantine (Namenda) 5 mg PO DAILY [facility] Last Admin: 09/30/18 10:01 Dose: 5 mg Metoprolol Tartrate (Lopressor) 25 mg PO BID [facility] Last Admin: 09/30/18 17:57 Dose: 25 mg Pneumococcal Polyvalent Vaccine (Pneumovax 23 Vaccine) 0.5 ml IM .ONCE ONE Stop: 10/01/18 10:01 Rosuvastatin Calcium (Crestor) 5 mg PO HS [facility] Last Admin: 09/29/18 22:03 Dose: 5 mg - Labs Labs: 09/30/18 06:25 09/30/18 06:25 PT 12.9 SECONDS (9.7-12.2) H 09/28/18 12:42 INR 1.2 09/28/18 12:42 APTT 31 SECONDS (21-34) 09/28/18 12:42 Assessment and Plan - Assessment and Plan (Free Text) Plan: patient seen and evaluated personally by me Plan of care d/w the medical affairs specialist and as documented
--- NOTE | 2018-10-01 00:56 | PN ---
DATE: 09/30/2018 SUBJECTIVE: The patient is seen and examined at bedside. The patient is feeling much better. Denies any new complaints. Denies any dizziness. All other systems reviewed and were found to be negative. PHYSICAL EXAMINATION: GENERAL: Elderly female, lying in bed, in no acute distress. VITAL SIGNS: Blood pressure 130/77, pulse 99, respirations 20, temperature 97.3 degrees Fahrenheit, and O2 saturations 98% on room air. HEENT: Pupils equal, round, and reacting to light and accommodation. Extraocular muscles are intact. No icterus. No pallor. No oral thrush. No pharyngeal congestion. NECK: Supple. No JVD. LUNGS: Bilateral vesicular breath sounds. No wheezing. No rhonchi. CARDIOVASCULAR SYSTEM: S1 and S2 present, irregularly irregular. ABDOMEN: Soft. Nontender. Bowel sounds are present. No guarding. No rigidly. No rebound tenderness noted. CENTRAL NERVOUS SYSTEM: Alert, awake, and oriented x3. No focal deficits noted. EXTREMITIES: No edema. Palpable peripheral pulses. MEDICATIONS: Include Eliquis 5 mg p.o. b.i.d., vitamin B12 1000 mcg IM, vitamin D 50,000 units once a week, Namenda 5 mg daily, Lopressor 25 mg p.o. b.i.d., Crestor 5 mg p.o. at bedtime. LABORATORY DATA: Labs from this morning; WBC 4.0, hemoglobin 12.2, hematocrit 36.1, platelets 203. Sodium 140, potassium 3.7, chloride 105, bicarb 27, BUN 14, creatinine 0.5, glucose 101, calcium 8.9, total bilirubin 1.9. AST 20, ALT 17, alkaline phosphatase 79. C-reactive protein 0.37. Total protein 6.5. Albumin 3.6, B12 is more than 1000, homocysteine is 15.3, TSH 2.5. MUGA scan pending. ASSESSMENT AND PLAN: Elderly female with history of hypertension; hyperlipidemia; dementia; vertigo; osteoarthritis; osteoporosis; cardiomyopathy, nonischemic; admitted for recurrent atrial fibrillation, recently cardioverted and underwent cardiac catheterization. The patient underwent MUGA scan, results pending. For MRI and EEG, Neurology consult appreciated. The patient is started on Eliquis 5 mg b.i.d. We will follow up with Cardiology and Neurology. Her blood pressure is stable on current medications. Continue with current medications. Continue with GI prophylaxis. Merle Cuevas MD
--- NOTE | 2018-10-01 09:29 | PN ---
DATE: 10/01/2018 TIME OF EVALUATION: 07:05 a.m. 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 PHYSICAL EXAMINATION: VITAL SIGNS: Blood pressure 112/79, mean arterial pressure of 90, respiratory rate 18, temperature 98.2 with a pulse rate of 84, irregularly irregular. ASSESSMENT AND PLAN: The patient is awake, apprehensive, felt tired of staying in the hospital. She does not want to do any more testing. The time I was examining her, she was up already using the cane and getting out of the bed, walking to the bathroom. The patient's medication has been resumed, Eliquis with the aspirin. No new episodes have been documented. From neurological point of view, if medically stable, the patient can be discharged and is recommended to follow up with me as outpatient. Savage Garcia MD
[2018-10-01] MEDS: Calcium-Vit D 500 mg-200 Units Tab UD PO SCH ×2 (09:41→17:35)
[2018-10-01] MEDS ORDERED: Pneumococcal 23-Valent Vaccine IM ONE (10:00)
--- NOTE | 2018-10-01 11:17 | CP.PCM.PN ---
Subjective - Date & Time of Evaluation Date of Evaluation: 10/01/18 Time of Evaluation: 11:17 - Subjective Subjective: Progress note dictated #[id number] Objective - Vital Signs/Intake and Output Vital Signs (last 24 hours): Temp Pulse Resp BP Pulse Ox 98.2 F 84 20 109/76 96 10/01/18 07:52 10/01/18 07:52 10/01/18 07:52 10/01/18 07:52 10/01/18 07:52 - Medications Medications: Current Medications Apixaban (Eliquis) 5 mg PO BID [facility] Last Admin: 10/01/18 09:41 Dose: 5 mg Calcium/Vitamin D (Oyster Shell Calcium/Vitamin D 500 Mg-200 Iu) 1 tab PO BID [facility] Last Admin: 10/01/18 09:41 Dose: 1 tab Cyanocobalamin (Vitamin B12 1000 Mcg/Ml Inj) 1,000 mcg IM DAILY [facility] Stop: 10/05/18 10:01 Last Admin: 10/01/18 09:50 Dose: 1,000 mcg Ergocalciferol (Drisdol 50,000 Intl Units Cap) 1 cap PO QWK [facility] Memantine (Namenda) 5 mg PO DAILY [facility] Last Admin: 10/01/18 09:41 Dose: 5 mg Metoprolol Tartrate (Lopressor) 25 mg PO BID [facility] Last Admin: 10/01/18 09:41 Dose: Not Given Rosuvastatin Calcium (Crestor) 5 mg PO HS [facility] Last Admin: 09/30/18 22:20 Dose: 5 mg - Labs Labs: 09/30/18 06:25 09/30/18 06:25 PT 12.9 SECONDS (9.7-12.2) H 09/28/18 12:42 INR 1.2 09/28/18 12:42 APTT 31 SECONDS (21-34) 09/28/18 12:42
--- NOTE | 2018-10-01 18:14 | CARD ---
APPROVED REPORT Date of service: 09/30/2018 INDICATION Evaluate L V function via Ejection Fraction PROCEDURE The above named patient recieved 25.0 millicuries of Tc99m tagged red blood cells intravenously. After achieving equilibrium, gated imaging of 16/frame/cycle was performed utillizing Gamma camera interfaced with a digital computer and gated device. Gated imaging was then performed in the left anterior oblique, anterior, and the left lateral projections. Findings Calculated LV Ejection Fraction is 40%. Normal Ejection Fraction for this facility is 55%.
--- NOTE | 2018-10-02 01:23 | PN ---
DATE: 10/01/2018 SUBJECTIVE: The patient was seen and examined at bedside. The patient denies any dizziness, denies any palpitations. All other systems reviewed and were found be negative. PHYSICAL EXAMINATION: GENERAL: Elderly female, lying in bed, in no acute distress. VITAL SIGNS: Blood pressure 110/68, pulse 77, respirations 20, temperature 97.6 degrees Fahrenheit, O2 saturation 95% on room air. HEENT: Pupils equal, round, and reacting to light and accommodation. Extraocular muscles intact. No icterus. No pallor. No oral thrush. No pharyngeal congestion. NECK: Supple. No JVD. LUNGS: Bilateral vesicular breath sounds. No wheezing. No rhonchi. CARDIOVASCULAR: S1, S2 present, irregularly irregular. ABDOMEN: Soft and nontender. Bowel sounds present. No guarding. No rigidity. No rebound tenderness noted. CENTRAL NERVOUS SYSTEM: Alert, awake, and oriented x3. No focal deficits noted. EXTREMITIES: No edema. Palpable peripheral pulses. MEDICATIONS: Include Eliquis 5 mg p.o b.i.d, calcium with vitamin D 50,000 units once a week, Namenda 5 mg daily, metoprolol 25 mg b.i.d., Crestor 5 mg at bedtime. LABORATORY DATA: MUGA scan consistent with ejection fraction 40%. ASSESSMENT AND PLAN: Elderly female with history of hypertension, hyperlipidemia, nonobstructive coronary artery disease, nonischemic cardiomyopathy, recurrent atrial fibrillation, status post dizziness, near syncope. The patient is refusing neurologic workup at the present time, wants to do it as outpatient. The patient's heart rate is controlled on current medication, will continue with the current therapy. Follow up with Cardiology. If the patient is cleared by Cardiology, we will plan discharging the patient home. Merle Cuevas MD
--- NOTE | 2018-10-02 05:25 | CARD ---
APPROVED REPORT Date of service: 09/29/2018 EKG Measurement Heart [id number] <Conclusion> Atrial fibrillation Nonspecific ST and T wave abnormality Prolonged QT Abnormal ECG
--- NOTE | 2018-10-02 05:48 | CP.PCM.PN ---
Subjective - Date & Time of Evaluation Date of Evaluation: 10/01/18 Time of Evaluation: 22:10 - Subjective Subjective: MUGA scan shows EF of 40% No need for LifeVest or AICD at this time Patient refusing MRI Dr. Garcia recommended ASA and Eliquis together Decrease Eliquis to 2.5 mg po bid Add ASA 81 daily Continue Metoprlolol 25mg po bid Due to borderline BP unable to add ACEI/ARB at this time Patient will need scripts for the medications and reconciliation of home meds prior to discharge Cardiac point of view cleared for discharge on 10/02/18 if no new events and hemodynamically stable F/U with PMD in 2 weeks and Cardiology in 1-2 months Objective - Vital Signs/Intake and Output Vital Signs (last 24 hours): Temp Pulse Resp BP Pulse Ox 98.5 F 115 H 20 124/68 96 10/02/18 00:00 10/02/18 01:02 10/02/18 00:00 10/02/18 00:00 10/02/18 00:00 - Medications Medications: Current Medications Apixaban (Eliquis) 2.5 mg PO BID [facility] Aspirin (Ecotrin) 81 mg PO DAILY [facility] Calcium/Vitamin D (Oyster Shell Calcium/Vitamin D 500 Mg-200 Iu) 1 tab PO BID [facility] Last Admin: 10/01/18 17:35 Dose: 1 tab Cyanocobalamin (Vitamin B12 1000 Mcg/Ml Inj) 1,000 mcg IM DAILY [facility] Stop: 10/05/18 10:01 Last Admin: 10/01/18 09:50 Dose: 1,000 mcg Ergocalciferol (Drisdol 50,000 Intl Units Cap) 1 cap PO QWK [facility] Memantine (Namenda) 5 mg PO DAILY [facility] Last Admin: 10/01/18 09:41 Dose: 5 mg Metoprolol Tartrate (Lopressor) 25 mg PO BID [facility] Last Admin: 10/01/18 17:35 Dose: 25 mg Rosuvastatin Calcium (Crestor) 5 mg PO HS [facility] Last Admin: 10/01/18 21:37 Dose: 5 mg - Labs Labs: 09/30/18 06:25 09/30/18 06:25 PT 12.9 SECONDS (9.7-12.2) H 09/28/18 12:42 INR 1.2 09/28/18 12:42 APTT 31 SECONDS (21-34) 09/28/18 12:42
[2018-10-02] MEDS ORDERED: Digoxin 500 mcg/2ml (0.5 mg/2ml) Inj IVP ONE ×2 (09:45→09:59)
--- NOTE | 2018-10-02 09:54 | CP.PCM.PN ---
<Mandi Finn - Last Filed: 10/02/18 10:29> Subjective - Date & Time of Evaluation Date of Evaluation: 10/02/18 Time of Evaluation: 09:51 - Subjective Subjective: Cardiology Follow Up Patient was seen and examined at bedside. Patient admitted to fatigue and palpitations. Patient denied any current chest pain or shortness of breath. Objective - Vital Signs/Intake and Output Vital Signs (last 24 hours): Temp Pulse Resp BP Pulse Ox 98 F 119 H 20 91/65 L 96 10/02/18 07:41 10/02/18 07:49 10/02/18 07:41 10/02/18 07:41 10/02/18 07:41 - Medications Medications: Current Medications Apixaban (Eliquis) 2.5 mg PO BID [facility] Aspirin (Ecotrin) 81 mg PO DAILY [facility] Calcium/Vitamin D (Oyster Shell Calcium/Vitamin D 500 Mg-200 Iu) 1 tab PO BID [facility] Last Admin: 10/01/18 17:35 Dose: 1 tab Cyanocobalamin (Vitamin B12 1000 Mcg/Ml Inj) 1,000 mcg IM DAILY [facility] Stop: 10/05/18 10:01 Last Admin: 10/01/18 09:50 Dose: 1,000 mcg Ergocalciferol (Drisdol 50,000 Intl Units Cap) 1 cap PO QWK [facility] Memantine (Namenda) 5 mg PO DAILY [facility] Last Admin: 10/01/18 09:41 Dose: 5 mg Metoprolol Tartrate (Lopressor) 25 mg PO BID [facility] Rosuvastatin Calcium (Crestor) 5 mg PO HS [facility] Last Admin: 10/01/18 21:37 Dose: 5 mg - Labs Labs: 09/30/18 06:25 09/30/18 06:25 PT 12.9 SECONDS (9.7-12.2) H 09/28/18 12:42 INR 1.2 09/28/18 12:42 APTT 31 SECONDS (21-34) 09/28/18 12:42 - Additional Findings Additional findings: - Constitutional Appears: No Acute Distress - Head Exam Head Exam: NORMAL INSPECTION, NORMOCEPHALIC - Eye Exam Eye Exam: EOMI, Normal appearance, PERRL - ENT Exam ENT Exam: Mucous Membranes Moist - Respiratory Exam Respiratory Exam: Clear to Ausculation Bilateral, NORMAL BREATHING PATTERN. absent: Decreased Breath Sounds - Cardiovascular Exam Cardiovascular Exam: +S1, +S2, Tachycardia - GI/Abdominal Exam GI & Abdominal Exam: Soft, Normal Bowel Sounds. absent: Distended, Tenderness - Extremities Exam Extremities Exam: Normal Inspection. absent: Pedal Edema, Tenderness - Neurological Exam Neurological Exam: Alert, Awake, Oriented x3 - Psychiatric Exam Psychiatric exam: Normal Affect, Normal Mood - Skin Skin Exam: Dry, Intact, Normal Color, Warm Assessment and Plan - Assessment and Plan (Free Text) Plan: Atrial Fibrillation s/p cardioversion, reverted back to AFib Nonischemic Cardiomyopathy with LVEF 40% Imaging: - MUGA - LVEF 40% Management: - No need for Lifevest or AICD - Will need buttermaker continuous churn anticoagulation, started ASA, Eliquis 2.5mg PO BID - Discharged planning cancelled in light of hypotension, tachycardia - EKG showed AFIB at 126bpm - Patient given 0.125mg digoxin IVP, labs, and CXR ordered Case discussed with Mandi Soni DO, PGY2 <Marcel Joshi - Last Filed: 10/02/18 20:02> Objective - Vital Signs/Intake and Output Vital Signs (last 24 hours): Temp Pulse Resp BP Pulse Ox 97.5 F L 98 H 20 115/69 95 10/02/18 15:00 10/02/18 15:00 10/02/18 15:00 10/02/18 18:43 10/02/18 15:00 - Medications Medications: Current Medications Apixaban (Eliquis) 2.5 mg PO BID [facility] Last Admin: 10/02/18 18:39 Dose: 2.5 mg Aspirin (Ecotrin) 81 mg PO DAILY [facility] Last Admin: 10/02/18 10:21 Dose: 81 mg Calcium/Vitamin D (Oyster Shell Calcium/Vitamin D 500 Mg-200 Iu) 1 tab PO BID [facility] Last Admin: 10/02/18 18:39 Dose: 1 tab Cyanocobalamin (Vitamin B12 1000 Mcg/Ml Inj) 1,000 mcg IM DAILY [facility] Stop: 10/05/18 10:01 Last Admin: 10/02/18 10:21 Dose: 1,000 mcg Digoxin (Digoxin) 0.125 mg PO DAILY@1800 [facility] Ergocalciferol (Drisdol 50,000 Intl Units Cap) 1 cap PO QWK [facility] Memantine (Namenda) 5 mg PO DAILY [facility] Last Admin: 10/02/18 10:21 Dose: 5 mg Metoprolol Tartrate (Lopressor) 25 mg PO BID [facility] Last Admin: 10/02/18 18:43 Dose: 25 mg Rosuvastatin Calcium (Crestor) 5 mg PO HS [facility] Last Admin: 10/01/18 21:37 Dose: 5 mg - Labs Labs: 10/02/18 10:24 10/02/18 10:24 PT 12.9 SECONDS (9.7-12.2) H 09/28/18 12:42 INR 1.2 09/28/18 12:42 APTT 31 SECONDS (21-34) 09/28/18 12:42 Assessment and Plan - Assessment and Plan (Free Text) Plan: Patient seen and evaluated personally by me. Plan of care d/w the site medical director and as documented
[2018-10-02] MEDS: Calcium-Vit D 500 mg-200 Units Tab UD PO SCH ×2 (10:20→18:39)
--- NOTE | 2018-10-02 10:26 | PCM.RRT ---
<Ramu Almaguer - Last Filed: 10/02/18 14:07> DENTURE LABORATORY TECHNICIAN Nurses Assessment - Situation Date: 10/02/18 Time DENTURE LABORATORY TECHNICIAN was called: 09:53 DENTURE LABORATORY TECHNICIAN Responder Arrival Time:: 09:54 DENTURE LABORATORY TECHNICIAN Location:: Med/Surg Room Number: 552-B DENTURE LABORATORY TECHNICIAN Reason for Call: Hypotension (glass robot operator was called by RN for hypotension at 85/60. Pt is asymptomatic. Pt noted to be in afib at 120s, has history of afib and is on bb and asa/apixaban. Pt did not receive lopressor today due to hypotension. Digoxin 0.125 mg IVP ordered as per Dr. bernabe, prior to DENTURE LABORATORY TECHNICIAN being called. Pt denies chest pain, sob, palpitations, abdominal pain, n/v, dizzines, visual changes. ) DENTURE LABORATORY TECHNICIAN Called By: RN - IV IV Inserted during DENTURE LABORATORY TECHNICIAN?: No - Medication Medications Administered During DENTURE LABORATORY TECHNICIAN: Digoxin 0.125 mg IVP - Diagnostic Test Ordered EKG: Yes (Afib with RVR) Chest X-Ray: Yes - Stat Labs Ordered DENTURE LABORATORY TECHNICIAN Stat Labs Ordered: CBC, BMP (CMP + mg and phos), TROPONIN CPR started during DENTURE LABORATORY TECHNICIAN?: No - Vital Signs Vital Signs: BP is 103/69, HR is 130s on the monitor. Cardio: afib with tachycardia, 2+ pulses in bilateral upper and lower distal extremities, no acute pedal edema pt presented to the hospital with RLE swelling due to varicose veins, no R/M/G Pulm: CTA bilaterally, no rales, rhonchi, wheezes Abd: soft, nontender, (+) bs in all 4 quadrants, no rebound, distension extremities: RLE swelling, nonpitting, (+) varicose veins bilaterally - Time DENTURE LABORATORY TECHNICIAN Ended Time DENTURE LABORATORY TECHNICIAN Ended: 10:11 (Pt remained asymptomatic throughour glass robot operator and wants to go home. she is AAOx3) - Vital Signs at end of DENTURE LABORATORY TECHNICIAN Vital Signs at end of DENTURE LABORATORY TECHNICIAN: HR is 102, BP is 102/55, pulse ox if 100% - Recommendations 5) DENTURE LABORATORY TECHNICIAN Level of Care Recommendations: Remain in current setting <Bo Fox - Last Filed: 10/02/18 14:35> DENTURE LABORATORY TECHNICIAN Nurses Assessment - Vital Signs Vital Signs: Rapid Response Vital Sign Blood Pressure 102/55 Pulse Rate 102 Respiratory Rate 20 Oxygen Saturation 98 - Vital Signs at end of DENTURE LABORATORY TECHNICIAN Vital Signs at end of DENTURE LABORATORY TECHNICIAN: Rapid Response End Vital Sign Blood Pressure 103/69 Pulse Rate 102 Respiratory Rate 20 Temperature 98.3 F O2 Sat by Pulse Oximetry 99 Attending/Attestation - Attestation I have personally seen and examined this patient.: Yes I have fully participated in the care of the patient.: Yes I have reviewed all pertinent clinical information, including history, physical exam and plan: Yes Notes (Text): 10/02/18 14:32 Hospitalist Note: the patient was not in any acute distress when we saw her - she remarked that she wanted to go home. Following commands and answering questions. The DENTURE LABORATORY TECHNICIAN was called due to patient having had systolic BP in the 80s. We rechecked and this had improved into the mid 110 systolic range. The was still in atrial fibrillation and digoxin IV x 1 was given. The patient patient had lab work redrawn, EKG, portable CXRAY Bo Fox
[2018-10-02 10:34] LABS: BASO % 0.5 % (0.0-2.0); EOS # 0.1 K/uL (0.0-0.7); EOS % 1.9 % (0.0-4.0); HEMOGLOBIN 12.7 g/dL (11.0-16.0); LYMPH # 1.2 K/uL (1.0-4.3); LYMPH % 21.9 % (20.0-40.0); MEAN CELL VOLUME 91.4 fL (81.0-99.0); MEAN CORPUSCULAR HEMOGLOBIN 30.8 pg (27.0-31.0); MEAN CORPUSCULAR HGB CONC 33.7 g/dL (33.0-37.0); MEAN PLATELET VOLUME 8.9 fL (7.2-11.7); MONO # 0.3 K/uL (0.0-0.8); MONO % 6.2 % (0.0-10.0); NEUT # 3.8 K/uL (1.8-7.0); NEUT % 69.5 % (50.0-75.0); NRBC % 0.1 % (0.0-2.0); RBC 4.13 Mil/uL (3.80-5.20); RED CELL DISTRIBUTION WIDTH 13.5 % (11.5-14.5); WHITE BLOOD COUNT 5.4 K/uL (4.8-10.8)
--- NOTE | 2018-10-02 10:44 | CP.PCM.PN ---
Subjective - Date & Time of Evaluation Date of Evaluation: 10/02/18 Time of Evaluation: 10:44 - Subjective Subjective: P:rogress note dictated #[id number] Objective - Vital Signs/Intake and Output Vital Signs (last 24 hours): Temp Pulse Resp BP Pulse Ox 98 F 119 H 20 95/60 L 96 10/02/18 07:41 10/02/18 07:49 10/02/18 07:41 10/02/18 10:21 10/02/18 07:41 - Medications Medications: Current Medications Apixaban (Eliquis) 2.5 mg PO BID [facility] Last Admin: 10/02/18 10:21 Dose: 2.5 mg Aspirin (Ecotrin) 81 mg PO DAILY [facility] Last Admin: 10/02/18 10:21 Dose: 81 mg Calcium/Vitamin D (Oyster Shell Calcium/Vitamin D 500 Mg-200 Iu) 1 tab PO BID [facility] Last Admin: 10/02/18 10:20 Dose: 1 tab Cyanocobalamin (Vitamin B12 1000 Mcg/Ml Inj) 1,000 mcg IM DAILY [facility] Stop: 10/05/18 10:01 Last Admin: 10/02/18 10:21 Dose: 1,000 mcg Ergocalciferol (Drisdol 50,000 Intl Units Cap) 1 cap PO QWK [facility] Memantine (Namenda) 5 mg PO DAILY [facility] Last Admin: 10/02/18 10:21 Dose: 5 mg Metoprolol Tartrate (Lopressor) 25 mg PO BID [facility] Last Admin: 10/02/18 10:21 Dose: Not Given Rosuvastatin Calcium (Crestor) 5 mg PO HS [facility] Last Admin: 10/01/18 21:37 Dose: 5 mg - Labs Labs: 10/02/18 10:24 09/30/18 06:25 PT 12.9 SECONDS (9.7-12.2) H 09/28/18 12:42 INR 1.2 09/28/18 12:42 APTT 31 SECONDS (21-34) 09/28/18 12:42
--- NOTE | 2018-10-02 10:44 | RAD ---
HISTORY: hypotension, TRICOT KNITTING MACHINE OPERATOR COMPARISON: Chest x-ray performed 09/28/18 TECHNIQUE: Chest, one view. FINDINGS: LUNGS: Hypoinflation. No focal consolidation. Bilateral hilar prominence. Please note that chest x-ray has limited sensitivity for the detection of pulmonary masses. PLEURA: No significant pleural effusion identified. No definite pneumothorax . CARDIOVASCULAR: Cardiomegaly. Atherosclerotic calcifications of the aorta. Ectatic aorta. OSSEOUS STRUCTURES: Osseous demineralization. Degenerative changes of the spine and shoulders. Acromioclavicular arthropathy. VISUALIZED UPPER ABDOMEN: Unremarkable. OTHER FINDINGS: None. IMPRESSION: Cardiomegaly. Atherosclerotic calcifications. Ectatic aorta. Bilateral hilar prominence. Hypoinflation.
[2018-10-02 10:55] LABS: CK-MB 0.25 ng/mL (0.0-3.38)
[2018-10-02 11:04] LABS: ALB/GLOB RATIO 1.2 (1.0-2.1); ALBUMIN 3.7 g/dL (3.5-5.0); ALT/SGPT 19 U/L (9-52); AST/SGOT 26 U/L (14-36); BLOOD UREA NITROGEN 16 mg/dL (7-17); CALCIUM 8.8 mg/dl (8.6-10.4); GFR NON-AFRICAN AMERICAN > 60
--- NOTE | 2018-10-02 12:27 | CP.PCM.CON ---
History of Present Illness - History of Present Illness History of Present Illness: Electrophysiology Consult Re: atrial fibrillation Chart and imaging and old medical records reviewed Ms. Freeman presented with dizziness without loss of consciousness rapida trial fibrillation on a background of recent detection of atrial fibrillation successful cardioversion and non ischemic cardiomyopathy and current document ation of recovering systolic function The index dizziness could plausibly be relted to the tachy-iris syndrome albiet a ventricular arrhythmia is not excluded given the presence of a myocardial substrate; there is no definitive need for sudden prophylaxis Options at this point include addition of amiodarone versus ablation with its attendant risks (tamponade esophageal injury and stroke) I would discuss with Dr. Joshi, the patient and her family Past Patient History - Infectious Disease Hx of Infectious Diseases: None - Past Medical History & Family History Past Medical History?: Yes - Past Social History Smoking Status: Never Smoked - CARDIAC Hx Hypercholesterolemia: Yes Hx Hypertension: Yes - PULMONARY Hx Respiratory Disorders: No - NEUROLOGICAL Hx Neurological Disorder: Yes Hx Vertigo: Yes - HEENT Hx HEENT Problems: No - RENAL Hx Chronic Kidney Disease: No - ENDOCRINE/METABOLIC Hx Endocrine Disorders: No - HEMATOLOGICAL/ONCOLOGICAL Hx Blood Disorders: No - INTEGUMENTARY Hx Dermatological Problems: No - MUSCULOSKELETAL/RHEUMATOLOGICAL Hx Arthritis: Yes - GASTROINTESTINAL Hx Gastrointestinal Disorders: No - GENITOURINARY/GYNECOLOGICAL Hx Genitourinary Disorders: No - PSYCHIATRIC Hx Psychophysiologic Disorder: Yes Hx Anxiety: Yes Hx Depression: Yes Hx Substance Use: No - SURGICAL HISTORY Hx Surgeries: Yes Other/Comment: surgery on right foot for bunion and right leg for varicose veins - ANESTHESIA Hx Anesthesia: Yes Hx Anesthesia Reactions: No Hx Malignant Hyperthermia: No Has any member of the family had a problem w/ anesthesia?: No Meds Allergies/Adverse Reactions: Allergies Allergy/AdvReac Type Severity Reaction Status Date / Time shellfish derived Allergy RASH Verified 09/28/18 19:02 ibuprofen AdvReac DIZZINESS Verified 09/28/18 19:03 - Medications Medications: Current Medications Apixaban (Eliquis) 2.5 mg PO BID [facility] Last Admin: 10/02/18 10:21 Dose: 2.5 mg Aspirin (Ecotrin) 81 mg PO DAILY [facility] Last Admin: 10/02/18 10:21 Dose: 81 mg Calcium/Vitamin D (Oyster Shell Calcium/Vitamin D 500 Mg-200 Iu) 1 tab PO BID [facility] Last Admin: 10/02/18 10:20 Dose: 1 tab Cyanocobalamin (Vitamin B12 1000 Mcg/Ml Inj) 1,000 mcg IM DAILY [facility] Stop: 10/05/18 10:01 Last Admin: 10/02/18 10:21 Dose: 1,000 mcg Digoxin (Digoxin) 0.125 mg PO DAILY@1800 MARGARET Digoxin (Digoxin) 0.125 mg PO ONCE ONE Stop: 10/02/18 18:01 Ergocalciferol (Drisdol 50,000 Intl Units Cap) 1 cap PO QWK [facility] Memantine (Namenda) 5 mg PO DAILY [facility] Last Admin: 10/02/18 10:21 Dose: 5 mg Metoprolol Tartrate (Lopressor) 25 mg PO BID [facility] Last Admin: 10/02/18 10:21 Dose: Not Given Rosuvastatin Calcium (Crestor) 5 mg PO HS [facility] Last Admin: 10/01/18 21:37 Dose: 5 mg Results - Vital Signs Recent Vital Signs: Last Vital Signs Temp 98 F 10/02/18 07:41 Pulse 119 H 10/02/18 07:49 Resp 20 10/02/18 07:41 BP 95/60 L 10/02/18 10:21 Pulse Ox 96 10/02/18 07:41 - Labs Result Diagrams: 10/02/18 10:24 10/02/18 10:24 Labs: Laboratory Results - last 24 hr 10/01/18 10/01/18 10/02/18 16:19 21:29 09:58 WBC RBC Hgb Hct MCV MCH MCHC RDW Plt Count MPV Neut % (Auto) Lymph % (Auto) Hendricks % (Auto) Eos % (Auto) Baso % (Auto) Neut # (Auto) Lymph # (Auto) Hendricks # (Auto) Eos # (Auto) Baso # (Auto) Sodium Potassium Chloride Carbon Dioxide Anion Gap BUN Creatinine Est GFR ( Amer) Est GFR (Non-Af Amer) POC Glucose (mg/dL) 109 110 124 H Random Glucose Calcium Phosphorus Magnesium Total Bilirubin AST ALT Alkaline Phosphatase Total Creatine Kinase CK-MB (Mass) Troponin I Total Protein Albumin Globulin Albumin/Globulin Ratio 10/02/18 10/02/18 10/02/18 10:24 10:24 11:27 WBC 5.4 RBC 4.13 Hgb 12.7 Hct 37.7 MCV 91.4 MCH 30.8 MCHC 33.7 RDW 13.5 Plt Count 212 MPV 8.9 Neut % (Auto) 69.5 Lymph % (Auto) 21.9 Hendricks % (Auto) 6.2 Eos % (Auto) 1.9 Baso % (Auto) 0.5 Neut # (Auto) 3.8 Lymph # (Auto) 1.2 Hendricks # (Auto) 0.3 Eos # (Auto) 0.1 Baso # (Auto) 0.0 Sodium 137 Potassium 3.8 Chloride 100 Carbon Dioxide 24 Anion Gap 17 BUN 16 Creatinine 0.7 Est GFR ( Amer) > 60 Est GFR (Non-Af Amer) > 60 POC Glucose (mg/dL) 99 Random Glucose 103 Calcium 8.8 Phosphorus 4.1 Magnesium 1.8 Total Bilirubin 2.4 H AST 26 ALT 19 Alkaline Phosphatase 75 Total Creatine Kinase 39 CK-MB (Mass) 0.25 Troponin I < 0.0120 Total Protein 6.8 Albumin 3.7 Globulin 3.1 Albumin/Globulin Ratio 1.2
--- NOTE | 2018-10-02 17:11 | CARD ---
APPROVED REPORT Date of service: 10/02/2018 EKG Measurement Heart [id number] <Conclusion> Atrial fibrillation with rapid ventricular response Abnormal ECG
[2018-10-02] MEDS ORDERED: Digoxin 125 mcg (0.125 mg) Tab PO ONE (18:00)
[2018-10-02 18:43] VITALS: PULSE 92
--- NOTE | 2018-10-03 01:01 | PN ---
DATE: 10/02/2018 SUBJECTIVE: The patient was seen and examined at bedside. Events from this morning noted. The patient was hypotensive and tachycardic, in atrial fibrillation with rapid ventricular rate and CERAMICS MACHINE OPERATOR was called. The patient was given digoxin. The patient denied any chest pain or shortness of breath at that time. When I examined, the patient denied any headache or dizziness. Denied any chest pain, shortness of breath, or wheezing. Denied any nausea, vomiting, abdominal pain, diarrhea, or constipation. Denied any neurologic symptoms. All other systems reviewed and were found to be negative. PHYSICAL EXAMINATION: GENERAL: Elderly female, lying in bed, in no acute distress. VITAL SIGNS: Blood pressure 115/69, pulse 111, respirations 20, temperature 97.5 degrees Fahrenheit, and O2 sat is 95% on room air. HEENT: Pupils equal, round, reacting to light and accommodation. Extraocular muscles are intact. No icterus. No pallor. No oral thrush. No pharyngeal congestion. NECK: Supple. No JVD. LUNGS: Bilateral vesicular breath sounds. No wheezing. No rhonchi. CVS: S1 and S2 are present, irregularly irregular. ABDOMEN: Soft and nontender. Bowel sounds are present. No guarding. No rigidity. No rebound tenderness noted. STOCKROOM SUPERVISOR: Alert, awake, and oriented x3. No focal deficits noted. EXTREMITIES: No edema. Palpable peripheral pulses. MEDICATIONS: Synthroid, Eliquis 2.5 mg p.o. b.i.d., aspirin 81 mg daily, B12 1000 mcg daily, digoxin 0.125 mg p.o. daily, vitamin D 50,000 units every week, Namenda 5 mg daily, metoprolol 25 mg p.o. b.i.d., and Crestor 5 mg p.o. at bedtime. LABORATORY DATA: Labs from this morning: WBC 5.4, hemoglobin 12.7, hematocrit 37.7, and platelets 212. Sodium 137, potassium 3.8, chloride 100, bicarbonate 24, BUN 16, creatinine 0.7, and glucose 99. Calcium 8.8, glucose 103, phosphorus 4.1, and magnesium 1.8. Total bilirubin 2.4. AST 26, ALT 19, and alkaline phosphatase 75. Cardiac enzymes are negative. ASSESSMENT AND PLAN: Elderly female with history of hypertension, hyperlipidemia, dementia, osteoarthritis, osteoporosis, admitted for recurrent atrial fibrillation, on anticoagulation, status post rapid response for hypotension with atrial fibrillation with rapid ventricular rate. Her symptoms include ____ digoxin. We will observe the patient for 24 hours for her heart rate control, discussed with Cardiology. We will give digoxin 0.125 mg daily. We will follow up with Cardiology. Continue with anticoagulation. Her blood sugar is stable now. Continue with Lopressor if blood pressure is stable. The patient is anxious to be discharged. Discussed with the patient at length. Merle Cuevas MD
[2018-10-03 08:02] VITALS: TEMP 97.5; O2SAT 99
[2018-10-03] MEDS: Calcium-Vit D 500 mg-200 Units Tab UD PO SCH (09:30)
[2018-10-03 09:31] VITALS: BP 112/71
[2018-10-03 11:58] VITALS: PULSE 109
--- NOTE | 2018-10-03 12:26 | CP.PCM.PN ---
Subjective - Date & Time of Evaluation Date of Evaluation: 10/03/18 Time of Evaluation: 12:26 - Subjective Subjective: Discharge summary dictated #[id number] Objective - Vital Signs/Intake and Output Vital Signs (last 24 hours): Temp Pulse Resp BP Pulse Ox 97.5 F L 109 H 20 112/71 99 10/03/18 07:00 10/03/18 11:57 10/03/18 07:00 10/03/18 09:32 10/03/18 07:00 - Medications Medications: Current Medications Apixaban (Eliquis) 2.5 mg PO BID [facility] Last Admin: 10/03/18 09:30 Dose: 2.5 mg Aspirin (Ecotrin) 81 mg PO DAILY [facility] Last Admin: 10/03/18 09:30 Dose: 81 mg Calcium/Vitamin D (Oyster Shell Calcium/Vitamin D 500 Mg-200 Iu) 1 tab PO BID [facility] Last Admin: 10/03/18 09:30 Dose: 1 tab Cyanocobalamin (Vitamin B12 1000 Mcg/Ml Inj) 1,000 mcg IM DAILY [facility] Stop: 10/05/18 10:01 Last Admin: 10/03/18 09:31 Dose: 1,000 mcg Digoxin (Digoxin) 0.125 mg PO DAILY@1800 [facility] Ergocalciferol (Drisdol 50,000 Intl Units Cap) 1 cap PO QWK [facility] Memantine (Namenda) 5 mg PO DAILY [facility] Last Admin: 10/03/18 09:30 Dose: 5 mg Metoprolol Tartrate (Lopressor) 25 mg PO BID [facility] Last Admin: 10/03/18 09:31 Dose: 25 mg Rosuvastatin Calcium (Crestor) 5 mg PO HS [facility] Last Admin: 10/02/18 21:28 Dose: 5 mg - Labs Labs: 10/02/18 10:24 10/02/18 10:24 PT 12.9 SECONDS (9.7-12.2) H 09/28/18 12:42 INR 1.2 09/28/18 12:42 APTT 31 SECONDS (21-34) 09/28/18 12:42
[2018-10-03] MEDS ORDERED: Influenza Vaccine 60 MCG/0.5 ML SYR (3 yr & up) IM ONE (14:19)
[2018-10-03] MEDS ORDERED: Digoxin 125 mcg (0.125 mg) Tab PO SCH (18:00)
--- NOTE | 2018-10-04 11:08 | CP.PCM.PN ---
Subjective - Date & Time of Evaluation Date of Evaluation: 10/03/18 Time of Evaluation: 09:30 - Subjective Subjective: Patient was seen and examined at bedside. denies chest pain and dyspnea Daughter at bedside. Physical Examination - Additional Findings Additional findings: - Constitutional Appears: No Acute Distress - Head Exam Head Exam: NORMAL INSPECTION, NORMOCEPHALIC - Eye Exam Eye Exam: EOMI, Normal appearance, PERRL - ENT Exam ENT Exam: Mucous Membranes Moist - Respiratory Exam Respiratory Exam: Clear to Ausculation Bilateral, NORMAL BREATHING PATTERN. absent: Decreased Breath Sounds - Cardiovascular Exam Cardiovascular Exam: +S1, +S2, Tachycardia - GI/Abdominal Exam GI & Abdominal Exam: Soft, Normal Bowel Sounds. absent: Distended, Tenderness - Extremities Exam Extremities Exam: Normal Inspection. absent: Pedal Edema, Tenderness - Neurological Exam Neurological Exam: Alert, Awake, Oriented x3 - Psychiatric Exam Psychiatric exam: Normal Affect, Normal Mood - Skin Skin Exam: Dry, Intact, Normal Color, Warm Assessment and Plan - Assessment and Plan (Free Text) Plan: Atrial Fibrillation s/p cardioversion, reverted back to AFib Nonischemic Cardiomyopathy with LVEF 40% Imaging: - MUGA - LVEF 40% Management: - No need for Lifevest or AICD - Will need halfway anticoagulation, started ASA 81 daily (Recommended by Neurology), Eliquis 2.5mg PO BID - Patient on Metoprolol XL 25 daily and Digoxin 0.125mg for rate control. ACEI as out patient (Not now due to borderline BP) - EKG showed AFIB rate controlled All the plan d/w the daughter and the patient Will follow me as out patient Objective - Vital Signs/Intake and Output Vital Signs (last 24 hours): Temp Pulse Resp BP Pulse Ox 97.5 F L 109 H 20 112/71 99 10/03/18 07:00 10/03/18 11:57 10/03/18 07:00 10/03/18 09:32 10/03/18 07:00 - Labs Labs: 10/02/18 10:24 10/02/18 10:24 PT 12.9 SECONDS (9.7-12.2) H 09/28/18 12:42 INR 1.2 09/28/18 12:42 APTT 31 SECONDS (21-34) 09/28/18 12:42
[2018-10-05] MEDS ORDERED: Ergocalciferol 50,000 Intl Units Cap PO SCH (10:00)
--- NOTE | 2018-10-06 14:59 | EEG ---
DATE: 09/30/2018 This is a 16-channel electroencephalogram of awake and drowsy adult. During the study, photic stimulation was performed. Hyperventilation was not performed. The resting electroencephalogram consists of a low voltage 20 to 30 microvolt 5 to 7 Hz theta activities seen in the parietal and occipital leads. The temporal region contaminated with muscle artifacts from the beginning. Later, somewhat organized to form 3 to 4 Hz delta activities. Some movement artifact intermittently contaminated the background rhythm. The photic stimulation did not evoke driving response noted at 2 to 20 Hz. There are some paroxysmal activities noted over the left temporal leads. Probably, this is not a clinical significance. Probably, it could be related to some movement artifact on her left side. However, if clinical suspicion is high, please consider extended hour ambulatory video electroencephalogram, which can be done as outpatient. Savage Garcia MD
--- NOTE | 2018-10-08 05:38 | DS ---
DISCHARGE DIAGNOSES: Recurrent atrial fibrillation with rapid ventricular rate, status post dizziness, status post hypotension and RR team with normal blood pressures, hypertension, hyperlipidemia, dementia, osteoarthritis, and osteoporosis. HISTORY OF PRESENT ILLNESS: Ms. Freeman is a 73-year-old female with past medical history of hypertension, hyperlipidemia, dementia, vertigo, osteoarthritis, osteoporosis, cardiomyopathy, recurrent atrial fibrillation, status post cardioversion converted to normal sinus rhythm, status post cardiac catheterization consistent with nonobstructive coronary artery disease, admitted for dizziness, chest tightness, associated with shortness of breath. In the ED, the patient was found to be in rapid ventricular rate with atrial fibrillation, and the patient is being admitted for further evaluation. On the day of discharge, the patient was feeling better. Denied any headache or dizziness. Denied any chest pain, shortness of breath, or wheezing. Denied any nausea, vomiting, abdominal pain, diarrhea, or constipation. Denied any urinary complaints. Denied any leg pains or leg cramps. Denied any other neurologic symptoms. All other systems reviewed and were found to be negative. PHYSICAL EXAMINATION: GENERAL: Elderly female, lying in bed, in no acute distress. VITAL SIGNS: Blood pressure 112/71, pulse 103, respirations 20, temperature 97.5 degrees Fahrenheit, and O2 sat is 99% on room air. HEENT: Pupils are equal, round, and reacting to light and accommodation. Extraocular muscles intact. No icterus. No pallor. No oral thrush. No pharyngeal congestion or nasal congestion. NECK: Supple. No JVD. LUNGS: Bilateral vesicular breath sounds. No wheezing. No rhonchi. CARDIOVASCULAR SYSTEM: S1 and S2 present, regular. ABDOMEN: Soft and nontender. Bowel sounds present. No guarding. No rigidity. No rebound tenderness noted. CENTRAL NERVOUS SYSTEM: Alert, awake, oriented x3. No focal deficits noted. EXTREMITIES: No edema. Palpable peripheral pulses. LABORATORY DATA: Labs done from 10/02/2018, WBC 5.4, hemoglobin 12.7, hematocrit 37.7, platelets 212. Sodium 137, potassium 3.8, chloride 100, bicarb 24, BUN 16, creatinine 0.7, glucose 103, calcium 8.8, phosphorus 4.1, magnesium 1.8, total bilirubin 2.4, AST 26, ALT 19, alkaline phosphatase 75. Cardiac enzymes were negative. Other LFTs within normal limits. HOSPITAL COURSE: The patient was admitted to the hospital for AFib with rapid ventricular rate. The patient was evaluated by Dr. Joshi. The patient was started on metoprolol, and she was off Eliquis. The patient was restarted on anticoagulation. The patient's heart rate improved. The patient underwent MUGA scan, which showed EF improving, so LifeVest was not recommended by Cardiology. The patient was evaluated by EPs. Recommended amiodarone versus cardiac ablation for atrial fibrillation. The patient will decide that as outpatient. The patient was evaluated by Neurology for dizziness and near syncope. The patient refused neurologic workup closed MRIs. Dr. Garcia was okay that the patient getting all these tests done as outpatient. On the day of discharge, the patient's blood pressure was very low, and PETROLEUM PLANT OPERATOR was called. The patient was given digoxin and given fluids. Her medications were held, and the patient was monitored for another 24 hours. During the period, she improved. With her blood pressures without any further evidence of acute OH and the patient is anxious to be discharged, as the patient is otherwise hemodynamically stable, all cleared by Cardiology and Neurology. The patient was discharged. Advised the patient to follow up with all the consultants. CONDITION UPON DISCHARGE: The patient was alert, awake, and oriented x3 and hemodynamically stable at the time of discharge. DISCHARGE INSTRUCTIONS: Follow up with PMD. Follow up with Cardiology. Follow up with Neurology. DISCHARGE MEDICATIONS: Include aspirin 81 mg daily, atorvastatin 10 mg daily, calcium and vitamin D2, ibandronate 150 mg daily, Namenda 5 mg daily, apixaban 2.5 mg p.o. b.i.d., digoxin 0.125 daily, and metoprolol tartrate 25 mg daily. DISCHARGE DIET: Low-sodium, low-cholesterol, heart-healthy diet. ACTIVITY: As tolerated. Advised the patient to return to the ED if any new symptoms or worsening of the symptoms noted. Merle Cuevas MD
== END 2018-10-03 14:57 | disposition home or self-care (01) | DRG 309 ==
LOC: C.ER 12:09 → C.9E 15:00 → C.5S 18:08
PROVIDERS: ADMIT Internal Medicine; ATTEND Internal Medicine
DX: I48.91 Unspecified atrial fibrillation (principal); G93.89 Other specified disorders of brain; I42.8 Other cardiomyopathies; G45.0 Vertebro-basilar artery syndrome; F41.9 Anxiety disorder, unspecified; F03.90 Unspecified dementia, unspecified severity, without behavioral disturbance, psychotic disturbance, mood disturbance, and anxiety; I10 Essential (primary) hypertension; R27.0 Ataxia, unspecified; I25.10 Atherosclerotic heart disease of native coronary artery without angina pectoris; F32.9 Major depressive disorder, single episode, unspecified; R94.5 Abnormal results of liver function studies; M19.90 Unspecified osteoarthritis, unspecified site; M81.0 Age-related osteoporosis without current pathological fracture; E78.5 Hyperlipidemia, unspecified; E78.00 Pure hypercholesterolemia, unspecified; Z86.73 Personal history of transient ischemic attack (TIA), and cerebral infarction without residual deficits; Z79.01 Long term (current) use of anticoagulants; Z79.82 Long term (current) use of aspirin; Z79.899 Other long term (current) drug therapy; Z87.440 Personal history of urinary (tract) infections; Z80.0 Family history of malignant neoplasm of digestive organs; Z82.49 Family history of ischemic heart disease and other diseases of the circulatory system

== ENCOUNTER 2018-10-13 23:13 | Inpatient (IN) | payer MEDICARE, MEDICAID ==
[2018-10-13 23:13] VITALS: BMI 33.5
--- NOTE | 2018-10-13 23:40 | C.PDOC ---
History Of Present Illness The patient presents to the ED for evaluation of palpitations and generalized weakness. Patient was recently discharged from the hospital one week ago for similar symptoms, and was found to be in rapid atrial fibrillation. Patient de nies chest pain at this time. Time Seen by Provider: 10/13/18 23:40 Chief Complaint (Nursing): Palpitations History Per: Patient History/Exam Limitations: no limitations Onset/Duration Of Symptoms: Days Current Symptoms Are (Timing): Still Present Associated Symptoms: denies: Chest Pain Quality Of Symptoms: Irregular Heart Rate Severity: Moderate Pain Scale Rating Of: 4 Exacerbating Factor(s): Pos: None Recent travel outside of the [place]: No Additional History Per: Patient Past Medical History Reviewed: Historical Data, Nursing Documentation, Vital Signs Vital Signs: Last Vital Signs Temp 99.9 F H 10/13/18 23:20 Pulse 130 H 10/13/18 23:20 Resp 22 10/13/18 23:20 BP 90/60 L 10/13/18 23:20 Pulse Ox 96 10/13/18 23:20 - Medical History PMH: Anxiety, Arthritis, Atrial Fibrillation, Depression, Fractures (back), HTN, Hypercholesterolemia Denies: Chronic Kidney Disease Surgical History: No Surg Hx - [facility] FLUOROSCOPY OF MULT COR ART USING L OSM CONTRAST (06/26/18) FLUOROSCOPY OF RIGHT AND LEFT HEART USING L OSM CONTRAST (06/26/18) MEASURE CARDIAC SAMPL & PRESSURE, BILATERAL, PERC (06/26/18) ADVENT OF CARDIAC RHYTHM, SINGLE (06/26/18) ULTRASONOGRAPHY OF RIGHT AND LEFT HEART, TRANSESOPHAGEAL (06/26/18) Family History: States: No Known Family Hx - Social History Hx Alcohol Use: No Hx Substance Use: No - Immunization History Hx Tetanus Toxoid Vaccination: No Hx Influenza Vaccination: No Hx Pneumococcal Vaccination: No Review Of Systems Constitutional: Negative for: Fever, Chills Eyes: Negative for: Vision Change Cardiovascular: Positive for: Palpitations. Negative for: Chest Pain Respiratory: Negative for: Cough, Shortness of Breath Gastrointestinal: Negative for: Nausea, Vomiting, Abdominal Pain Musculoskeletal: Negative for: Neck Pain, Shoulder Pain, Arm Pain, Back Pain Skin: Negative for: Rash, Lesions, Jaundice, Bruising Neurological: Positive for: Weakness. Negative for: Change in Speech, Headache, Dizziness Psych: Negative for: Anxiety Physical Exam - Physical Exam Appears: Non-toxic, No Acute Distress Skin: Warm, Dry Head: Normacephalic Eye(s): bilateral: Normal Inspection Oral Mucosa: Moist Neck: Supple Chest: Symmetrical, No Deformity, No Tenderness Cardiovascular: No Murmur, Other (irregularly irregular) Respiratory: No Rales, No Rhonchi, No Wheezing Gastrointestinal/Abdominal: Soft, No Tenderness, No Distention Back: Normal Inspection Extremity: Normal ROM, Capillary Refill (less than 2 seconds ) Extremity: Bilateral: Atraumatic, Normal ROM Pulses: Left Dorsalis Pedis: Normal, Right Dorsalis Pedis: Normal Neurological/Psych: Oriented x3 Gait: Steady ED Course And Treatment - Laboratory Results Result Diagrams: 10/14/18 00:41 10/14/18 00:41 ECG: Interpreted By Me, Viewed By Me ECG Rhythm: Atrial Fibrillation (146), Nonspecific Changes O2 Sat by Pulse Oximetry: 96 (on RA) Pulse Ox Interpretation: Normal - Radiology CXR: Interpreted by Me, Viewed By Me CXR Interpretation: No: Infiltrates, Fracture, Pnemothorax Progress Note: Bloodwork, CXR, and EKG ordered and reviewed. Disposition Discussed With : Merle Cuevas Comment: accepted the pt [facility] er service and took over the care at 2:33 AM Doctor Will See Patient In The: Hospital Counseled Patient/Family Regarding: Studies Performed, Diagnosis - Disposition Disposition: HOSPITALIZED Disposition Time: 23:40 Condition: FAIR Forms: [facility] ([place]) - POA Present On Arrival: Poor Glycemic Control - Clinical Impression Clinical Impression: Palpitations, Atrial fibrillation, CHF (congestive heart failure), Elevated bilirubin - Scribe Statement The provider has reviewed the documentation as recorded by the Scribe (Antonietta Garcia) Provider Attestation: All medical record entries made by the Scribe were at my direction and personally dictated by me. I have reviewed the chart and agree that the record accurately reflects my personal performance of the history, physical exam, medical decision making, and the department course for this patient. I have also personally directed, reviewed, and agree with the discharge instructions and disposition. Decision To Admit - Pt Status Changed To: Hospital Disposition Of: Inpatient - Admit Certification Admit to Inpatient:: After my assessment, the patient will require hospitalization for at least two midnights. This is because of the severity of symptoms shown, intensity of services needed, and/or the medical risk in this patient being treated as an outpatient. - InPatient: Physician Admission Certification: I certify that this patient requires 2 or more midnights of care for the following reason:: After my assessment, the patient will require hospitalization for at least two midnights. This is becaus e of the severity of symptoms shown, intensity of services needed, and/or the medical risk in this patient being treated as an outpatient. - . Bed Request Type: Telemetry Admitting Physician: Merle Cuevas Patient Diagnosis: Palpitations, Atrial fibrillation, CHF (congestive heart failure), Elevated bilirubin
[2018-10-14 00:45] LABS: BASO % 0.5 % (0.0-2.0); EOS % 0.7 % (0.0-4.0); HEMOGLOBIN 11.9 g/dL (11.0-16.0); LYMPH # 0.8 K/uL (1.0-4.3); LYMPH % 10.7 % (20.0-40.0); MEAN CELL VOLUME 90.8 fL (81.0-99.0); MEAN CORPUSCULAR HEMOGLOBIN 30.7 pg (27.0-31.0); MEAN CORPUSCULAR HGB CONC 33.8 g/dL (33.0-37.0); MEAN PLATELET VOLUME 9.9 fL (7.2-11.7); MONO # 0.5 K/uL (0.0-0.8); MONO % 6.9 % (0.0-10.0); NEUT # 5.7 K/uL (1.8-7.0); NEUT % 81.2 % (50.0-75.0); RBC 3.86 Mil/uL (3.80-5.20); RED CELL DISTRIBUTION WIDTH 13.3 % (11.5-14.5)
[2018-10-14 01:04] LABS: INR 1.5; PROTHROMBIN TIME 16.8 SECONDS (9.7-12.2)
[2018-10-14 01:09] LABS: B-TYPE NATRIURETIC PEPTIDE 3170 pg/mL (0-900)
[2018-10-14 01:12] LABS: ALB/GLOB RATIO 1.3 (1.0-2.1); ALT/SGPT 20 U/L (9-52); AST/SGOT 22 U/L (14-36); BLOOD UREA NITROGEN 16 mg/dL (7-17); CALCIUM 8.4 mg/dl (8.6-10.4); GFR NON-AFRICAN AMERICAN > 60
[2018-10-14 09:09] LABS: CK-MB 0.38 ng/mL (0.0-3.38)
[2018-10-14] MEDS ORDERED: VIT D3 PO SCH (10:00)
[2018-10-14] MEDS ORDERED: MINERALS PO SCH (10:00)
[2018-10-14] MEDS ORDERED: CALCIUM CARB PO SCH (10:00)
[2018-10-14] MEDS ORDERED: IBANDRONATE SODIUM 150 MG PO SCH ×2 (10:00)
[2018-10-14] MEDS: Ergocalciferol 50,000 Intl Units Cap PO SCH (10:10)
--- NOTE | 2018-10-14 10:36 | CP.PCM.PN ---
Subjective - Date & Time of Evaluation Date of Evaluation: 10/14/18 Time of Evaluation: 10:36 - Subjective Subjective: H&P dictated #[id number] Objective - Vital Signs/Intake and Output Vital Signs (last 24 hours): Temp Pulse Resp BP Pulse Ox 100.1 F H 111 H 20 109/72 95 10/14/18 07:15 10/14/18 07:15 10/14/18 07:15 10/14/18 07:15 10/14/18 07:15 - Medications Medications: Current Medications Apixaban (Eliquis) 2.5 mg PO BID [facility] Last Admin: 10/14/18 10:10 Dose: 2.5 mg Aspirin (Ecotrin) 81 mg PO DAILY [facility] Last Admin: 10/14/18 10:10 Dose: 81 mg Digoxin (Digoxin) 0.125 mg PO DAILY@1800 [facility] Ergocalciferol (Drisdol 50,000 Intl Units Cap) 1 cap PO QWK [facility] Last Admin: 10/14/18 10:10 Dose: 1 cap Home Med (Ibandronate Sodium) 150 mg PO DAILY [facility] Home Med (Calcium Carb/Vit D3/Minerals [Calcium 600+D Plus Minerals Tb]) 1 each PO BID [facility] Memantine (Namenda) 5 mg PO DAILY [facility] Last Admin: 10/14/18 10:11 Dose: 5 mg Rosuvastatin Calcium (Crestor) 5 mg PO HS [facility] - Labs Labs: 10/14/18 00:41 10/14/18 00:41 PT 16.8 SECONDS (9.7-12.2) H 10/14/18 00:41 INR 1.5 10/14/18 00:41 APTT 35 SECONDS (21-34) H 10/14/18 00:41
--- NOTE | 2018-10-14 12:48 | RAD ---
Date of service: 10/14/2018 PROCEDURE: CHEST RADIOGRAPH, 1 VIEW HISTORY: chest pain COMPARISON: 10/02/2018 FINDINGS: LUNGS: Clear. PLEURA: No pneumothorax or pleural fluid seen. CARDIOVASCULAR: No aortic atherosclerotic calcification present. Normal. OSSEOUS STRUCTURES: No significant abnormalities. VISUALIZED UPPER ABDOMEN: Normal. OTHER FINDINGS: None. IMPRESSION: No active disease.
[2018-10-14] MEDS ORDERED: Iodixanol 320 MG/ML 100 ML BOTTLE IV ONE (16:20)
[2018-10-14 17:35] LABS: CK-MB 0.31 ng/mL (0.0-3.38)
[2018-10-14] MEDS: Digoxin 125 mcg (0.125 mg) Tab PO SCH (17:35)
--- NOTE | 2018-10-14 19:33 | CARD ---
APPROVED REPORT Date of service: 10/13/2018 EKG Measurement Heart [id number] <Conclusion> Rapid atrial fibrillation. Non specific st abnormality. Abnormal ECG
--- NOTE | 2018-10-15 01:41 | HP ---
CHIEF COMPLAINT: Sudden onset of shaking of her hands, dizziness and diaphoresis. The patient was brought in for further evaluation. HISTORY OF PRESENT ILLNESS: Ms. Freeman is a 73-year-old female with past medical history of hypertension, hyperlipidemia, dementia, vertigo, osteoarthritis, osteoporosis, cardiomyopathy, atrial fibrillation, status post failed cardioversion and status post cardiac catheterization who is known to me from prior admissions who was admitted to the hospital on 09/28/2018 and discharged recently about 10 days ago on 10/03/2018 as the patient was stabilized after being admitted for recurrent atrial fibrillation with rapid ventricular rate and dizziness and status post hypotension who has been in her usual state of health for the past 10 days since the discharge. She claims that she suddenly woke up at 2 a.m. with shaking. She was trying to get up to go to the bathroom at 2 a.m. Suddenly, she noticed her hands were shaking and she felt very weak and dizzy and unable to walk to the bathroom. She claims that she was diaphoretic. Denied any syncopal episodes. She claims that she was aware of all the surroundings. Denies any tongue bite. Denies any urinary incontinence. Denies any nausea, vomiting, abdominal pain, diarrhea or constipation. Denies any urinary complaints. PAST SURGICAL HISTORY: She underwent a surgery for varicose veins many years ago. PERSONAL HISTORY: She is , having two daughters, living with her daughter. 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 FAMILY HISTORY: Coronary artery disease in mother and grandmother, both from CAD. Mother at age 59. Father had a history of CAD and stomach cancer. He at age 75. SOCIAL HISTORY: She is an ex-smoker, quit smoking many years ago, smoked two packs per day for 20 years. Denies any alcohol or drug abuse. ALLERGIES: SHE IS ALLERGIC TO SEAFOOD. MEDICATIONS: Her medications at home include Eliquis 2.5 mg p.o. b.i.d., aspirin 81 mg daily, Lipitor 10 mg daily, digoxin 0.125 mg daily, vitamin D2, alendronate 150 mg p.o. once a month, Namenda 5 mg daily. Metoprolol was given to the patient, but the patient's medication list does not show that she has been on metoprolol. When she was discharged on 10/03/2018, she was given metoprolol tartrate 25 mg daily, which appears that she was not getting on admission. REVIEW OF SYSTEMS: As described in history of present illness. All other systems reviewed and were found to be negative. PHYSICAL EXAMINATION: GENERAL: Elderly female, lying in bed, in no acute distress. VITAL SIGNS: Blood pressure 109/72, pulse 111, temperature 100.1 degrees Fahrenheit, respiratory rate 20, and O2 saturation 95% on room air. HEENT: Pupils equal, round and reacting to light and accommodation. Extraocular muscles intact. No icterus. No pallor. No oral thrush. No pharyngeal congestion. NECK: Supple. No JVD. LUNGS: Bilateral vesicular breath sounds. No wheezing or basal crackles heard. CARDIOVASCULAR SYSTEM: S1 and S2 present. Irregularly irregular, rapid rate. ABDOMEN: Soft and nontender. Bowel sounds present. No guarding. No rigidity. No rebound tenderness noted. CENTRAL NERVOUS SYSTEM: Alert, awake and oriented x3. No focal deficits noted. EXTREMITIES: Trace edema. Palpable peripheral pulses. LABORATORY DATA: Labs done from the ED: WBC 7, hemoglobin 11.9, hematocrit 35.1, platelets 192. PT 16.8, INR 1.5, PTT 35. Sodium 135, potassium 3.7, chloride 101, bicarbonate 25, BUN 16, creatinine 0.7, glucose 134, calcium 8.4. Total bilirubin 3.8, AST 22, ALT 20, alkaline phosphatase 82. Cardiac enzymes are negative. ProBNP is 3170. Total protein 7.3, albumin 4. The patient had ultrasound of the abdomen done in 06/2018 consistent with mildly prominent spleen, measuring 12.4 cm, increased echogenicity of the liver parenchymal cortex, suggestive of fatty infiltration versus hepatitic parenchymal disease. Carotid Doppler negative for any stenosis. Lower extremity arterial Doppler, no evidence of DVT. MUGA scan done on 09/30/2018 consistent with ejection fraction of 40%. Head CT done on 09/28/2018 was negative. The patient refused MRI. EEG was done on 09/30/2018. Chest x-ray done from ED on this admission, very minimal blunting of the right costophrenic angle and cardiomegaly. ASSESSMENT AND PLAN: Elderly female with past medical history of hypertension, hyperlipidemia, dementia, vertigo, osteoarthritis, osteoarthrosis, cardiomyopathy with improved ejection fraction to 40% on recent MUGA scan, recurrent atrial fibrillation, status post failed cardioversion, status post cardiac catheterization done in 06/2018 consistent with nonobstructive coronaries who was admitted on 09/28/2018 recently and discharged on 10/03/2018. Came into the emergency room with sudden onset of trembling of the upper extremities with palpitation and diaphoresis. In the emergency department, the patient was found to be in rapid atrial fibrillation, and the patient is being admitted for further management. 1. Atrial fibrillation with rapid ventricular rate. 2. Shaking of the extremities and diaphoresis as per the patient with dizziness, rule out neurologic events. Recent electroencephalogram was negative. 3. Rule out secondary to anxiety disorder. 4. Nonobstructive coronary artery disease. 5. Hypertension. 6. Hyperlipidemia. 7. Dementia. 8. Osteoarthritis. 9. Osteoporosis. PLAN: The patient is being admitted to cardiac telemetry. We will do serial cardiac enzymes, serial EKGs. Continue with her home medications of digoxin 0.125 mg p.o. daily, Eliquis 2.5 mg p.o. b.i.d. Restart her metoprolol, which was not on the medication list. The patient received Lasix in the ED. They will monitor her blood pressure closely. We will do neuro checks. They will obtain cardiology evaluation with Dr. Joshi and neurology evaluation with Dr. Garcia. The patient refused MRI and MRA on prior admission, claiming that she would do them as outpatient. We will request psychiatric evaluation. We will continue with lipid-lowering agents. We will add further recommendations as her clinical course progresses. Merle Cuevas MD
--- NOTE | 2018-10-15 03:38 | CON ---
DATE: 10/14/2018 PSYCHIATRIC CONSULTATION CHIEF COMPLAINT AND REASON FOR CONSULTATION: The patient was referred by Dr. Merle Cuevas for evaluation of her anxiety. The patient has been complaining of increasing palpitations, anxiety, and insomnia. HISTORY OF PRESENT ILLNESS: This is a case of 73-year-old female who is living with her daughter. The patient was admitted here complaining of generalized weakness and palpitations. The patient in the emergency room was noted to be very anxious and having problems with her sleep. Her EKG in the emergency room showed atrial fibrillation. The patient was referred for comanagement as the patient has history of anxiety and chronic insomnia and for comanagement of her psych problems. This is a care of 73-year-old female who lives with daughter was admitted with palpitations and generalized weakness. EKG showed rapid atrial fibrillation. The patient was referred for comanagement of anxiety. The patient reports this problem started when she was moved in with her daughter in 06/2018. The patient reports that she could not sleep at night because of the apartment above to her is making a lot of noise and have banging and throwing things at revolving inventory clerk hours up to 3 in the morning. The patient told her daughter about that, but the patient's daughter is not doing anything. The patient reports they started banging during the earlier hours in the morning making the patient very nervous and disturbing her sleep. She also told her daughter that she should tell the nurse transplant, but the nurse transplant is not available due to the holidays. The patient reports that since 06/2018, she has been in the hospital for three times for cardiac problems especially for palpitations, anxiety, and insomnia. The patient is not taking any medications. The patient states that she will move out of her daughter's apartment as soon as possible when she has another apartment. She was living in a different apartment before for many years and never had this problem, but once she moved in with her daughter, the patient could not sleep due to constant banging from the apartment above where she slept. PAST PSYCHIATRIC HISTORY: Denies any. PAST MEDICAL HISTORY: History of anxiety, arthritis, history of fracture, hypertension, and hypercholesterolemia. DRUG AND ALCOHOL HISTORY: Denies any. ALLERGIES: THE PATIENT IS ALLERGIC TO SHELLFISH AND IBUPROFEN. PSYCHOSOCIAL HISTORY: The patient is retired. She is living with her daughter and has one granddaughter. The patient reports that her daughter has some issues with her 18-year-old granddaughter. PHYSICAL EXAMINATION: VITAL SIGNS: Temperature is 98.1, pulse 103, blood pressure 114/79, respirations 20, and oxygen saturations 95%. GENERAL: The patient is alert, verbal, very anxious. She states she does live in an apartment. SKIN: No diaphoresis. HEENT: No headache. No dizziness. NECK: Supple. RESPIRATORY: No dyspnea. CARDIOVASCULAR: No palpitations. No chest pain. GASTROINTESTINAL: No nausea. No vomiting. EXTREMITIES: The patient is ambulatory. MUSCULOSKELETAL: has generalized debility. NEUROLOGIC: Alert and oriented x3. MENTAL STATUS EXAMINATION: Elderly female who looks stated age, about 5 feet 4 inches, weighs 179 pounds, obese. Mood is anxious, somatic. Affect reactive. Speech spontaneous. Thought process coherent. Thought content, the patient is distress over her lack of sleep due to constant banging and noise from the apartment above where she is living. The patient is attempting to move out. No psychosis. No suicidal or homicidal ideation. Attention and memory seem to be fair. Insight and judgment are fair. Impulse control is fair. IMPRESSION: Anxiety disorder, history of atrial fibrillation, and congestive heart failure. PLAN AND RECOMMENDATIONS: The patient is seen. Meds reviewed. We will try to give her Ativan 1 mg every 6 hours p.r.n. for anxiety. The patient is reluctant to take any meds. Continue treatment plan as outlined. The patient is advised to move out from her daughter's apartment and to move to a different apartment of her own where she can sleep better and feel more rested. Continue treatment plan as outlined. Jose Rouse MD MTDD
--- NOTE | 2018-10-15 07:14 | CP.PCM.CON ---
History of Present Illness - History of Present Illness History of Present Illness: CONSULTATION DICTATED AFIB LEFT HEMIPARESIS - NEW Vs OLD VBI NEW R/O NEW ISCHEMIC PROCESS CONTINUE ELIQUIS IF STABLE 5 MG BID ECOTRIN 81 MG MRI/ CAROTID /EEG PT Past Patient History - Infectious Disease Hx of Infectious Diseases: None - Past Medical History & Family History Past Medical History?: Yes - Past Social History Smoking Status: Former Smoker - CARDIAC Hx Atrial Fibrillation: Yes Hx Hypercholesterolemia: Yes Hx Hypertension: Yes - PULMONARY Hx Respiratory Disorders: No - NEUROLOGICAL Hx Neurological Disorder: Yes Hx Vertigo: Yes - HEENT Hx HEENT Problems: No - RENAL Hx Chronic Kidney Disease: No - ENDOCRINE/METABOLIC Hx Endocrine Disorders: No - HEMATOLOGICAL/ONCOLOGICAL Hx Blood Disorders: No - INTEGUMENTARY Hx Dermatological Problems: No - MUSCULOSKELETAL/RHEUMATOLOGICAL Hx Arthritis: Yes Hx Falls: Yes Hx Fractures: Yes (back) - GASTROINTESTINAL Hx Gastrointestinal Disorders: No - GENITOURINARY/GYNECOLOGICAL Hx Genitourinary Disorders: No - PSYCHIATRIC Hx Anxiety: Yes Hx Depression: Yes Hx Substance Use: No - SURGICAL HISTORY Hx Surgeries: Yes Other/Comment: surgery on right foot for bunion and right leg for varicose veins - ANESTHESIA Hx Anesthesia: Yes Hx Anesthesia Reactions: No Hx Malignant Hyperthermia: No Meds Allergies/Adverse Reactions: Allergies Allergy/AdvReac Type Severity Reaction Status Date / Time shellfish derived Allergy RASH Verified 10/13/18 23:25 ibuprofen AdvReac DIZZINESS Verified 10/13/18 23:25 - Medications Medications: Current Medications Apixaban (Eliquis) 2.5 mg PO BID [facility] Last Admin: 10/14/18 17:35 Dose: 2.5 mg Aspirin (Ecotrin) 81 mg PO DAILY [facility] Last Admin: 10/14/18 10:10 Dose: 81 mg Digoxin (Digoxin) 0.125 mg PO DAILY@1800 [facility] Last Admin: 10/14/18 17:35 Dose: 0.125 mg Ergocalciferol (Drisdol 50,000 Intl Units Cap) 1 cap PO QWK [facility] Last Admin: 10/14/18 10:10 Dose: 1 cap Home Med (Ibandronate Sodium) 150 mg PO DAILY [facility] Home Med (Calcium Carb/Vit D3/Minerals [Calcium 600+D Plus Minerals Tb]) 1 each PO BID [facility] Lorazepam (Ativan) 1 mg PO Q6H PRN PRN Reason: Anxiety Last Admin: 10/14/18 17:34 Dose: 1 mg Memantine (Namenda) 5 mg PO DAILY [facility] Last Admin: 10/14/18 10:11 Dose: 5 mg Metoprolol Tartrate (Lopressor) 25 mg PO BID [facility] Last Admin: 10/14/18 17:34 Dose: 25 mg Rosuvastatin Calcium (Crestor) 5 mg PO HS [facility] Last Admin: 10/14/18 21:28 Dose: 5 mg Results - Vital Signs Recent Vital Signs: Last Vital Signs Temp 100.0 F H 10/15/18 04:52 Pulse 110 H 10/14/18 23:59 Resp 20 10/14/18 23:59 BP 105/76 10/14/18 23:59 Pulse Ox 96 10/14/18 23:59 - Labs Result Diagrams: 10/14/18 00:41 10/14/18 00:41 Labs: Laboratory Results - last 24 hr 10/14/18 10/14/18 08:39 17:06 Total Creatine Kinase 57 50 CK-MB (Mass) 0.38 0.31 Troponin I < 0.0120 < 0.0120
[2018-10-15] MEDS ORDERED: Iodixanol 320 MG/ML 100 ML BOTTLE IV ONE (09:44)
--- NOTE | 2018-10-15 11:37 | CP.PCM.PN ---
Subjective - Date & Time of Evaluation Date of Evaluation: 10/15/18 Time of Evaluation: 11:37 - Subjective Subjective: Progress note dictated # [id number] Objective - Vital Signs/Intake and Output Vital Signs (last 24 hours): Temp Pulse Resp BP Pulse Ox 98.9 F 128 H 20 98/69 L 97 10/15/18 07:06 10/15/18 09:50 10/15/18 07:06 10/15/18 10:51 10/15/18 07:06 Intake and Output: 10/15/18 10/15/18 06:59 18:59 Intake Total 340 Balance 340 - Medications Medications: Current Medications Apixaban (Eliquis) 2.5 mg PO BID [facility] Last Admin: 10/15/18 09:49 Dose: 2.5 mg Aspirin (Ecotrin) 81 mg PO DAILY [facility] Last Admin: 10/15/18 09:49 Dose: 81 mg Digoxin (Digoxin) 0.125 mg PO DAILY@1800 [facility] Last Admin: 10/14/18 17:35 Dose: 0.125 mg Ergocalciferol (Drisdol 50,000 Intl Units Cap) 1 cap PO QWK [facility] Last Admin: 10/14/18 10:10 Dose: 1 cap Home Med (Ibandronate Sodium) 150 mg PO DAILY [facility] Home Med (Calcium Carb/Vit D3/Minerals [Calcium 600+D Plus Minerals Tb]) 1 each PO BID [facility] Lorazepam (Ativan) 1 mg PO Q6H PRN PRN Reason: Anxiety Last Admin: 10/14/18 17:34 Dose: 1 mg Memantine (Namenda) 5 mg PO DAILY [facility] Last Admin: 10/15/18 09:49 Dose: 5 mg Metoprolol Tartrate (Lopressor) 25 mg PO BID [facility] Last Admin: 10/15/18 10:51 Dose: 25 mg Rosuvastatin Calcium (Crestor) 5 mg PO HS [facility] Last Admin: 10/14/18 21:28 Dose: 5 mg - Labs Labs: 10/14/18 00:41 10/14/18 00:41 PT 16.8 SECONDS (9.7-12.2) H 10/14/18 00:41 INR 1.5 10/14/18 00:41 APTT 35 SECONDS (21-34) H 10/14/18 00:41
[2018-10-15] MEDS: Digoxin 125 mcg (0.125 mg) Tab PO SCH (17:31)
[2018-10-15 18:12] LABS: SQUAMOUS EPITHIAL 1 /hpf (0-5); URINE BACTERIA RARE (<OCC); URINE BILIRUBIN NEGATIVE (NEGATIVE); URINE BLOOD 1+ (NEGATIVE); URINE CALCIUM OXALATE CRYSTALS RARE /hpf (<OCC); URINE CLARITY Hazy (Clear); URINE COLOR Amber (YELLOW); URINE GLUCOSE (UA) NORMAL (Normal); URINE LEUKOCYTE ESTERASE 3+ Leu/uL (Negative); URINE PROTEIN 1+ mg/dL (NEGATIVE)
--- NOTE | 2018-10-15 18:55 | CON ---
DATE: 10/15/2018 ADMITTING PHYSICIAN: Merle Cuevas MD. LOCATION: The patient's room number 556, bed B. REASON FOR CONSULTATION Dizziness. CHIEF COMPLAINT: The patient was brought into [facility] with history of dizziness and a shaking spell. From neuro point I was called to evaluate her for further management. HISTORY OF PRESENT ILLNESS: Ms. Sarai Freeman is a 73-year-old right-handed female who has been recently discharged from [facility] with history of atrial fibrillation with rapid ventricular response. The patient was treated medically and she was sent home. On morning to around 02:00 a.m. she woke up with shaking spell with perspiration. She claims that this episode also associating with losing her balance, which is not resolved, because of the persistence she decided to come to the hospital for further evaluation. This episode not associating with visual or bulbar dysfunction. No history of neck pain. No history of lower back pain. She denies any dizziness at present. PAST MEDICAL HISTORY: Significant to cardiac arrhythmias, atrial fibrillation, dementia, dyslipidemia, osteoarthritis, osteoporosis, cardiomyopathy. PAST SURGICAL HISTORY: Varicose vein repair in the past. PERSONAL HISTORY: Denies smoking or alcohol use. ALLERGIES: ALLERGIC TO SEAFOOD. REVIEW OF SYSTEMS: A 12-point system being reviewed. From neuro, shaking spell and dizziness. MEDICATIONS: Crestor, digoxin, Ecotrin, Eliquis, Namenda. PHYSICAL EXAMINATION: VITAL SIGNS: Blood pressure 105/76, mean artery pressure of 85, respiratory rate 18, pulse rate 110, temperature 100. NECK: Supple. No carotid bruit. HEART: Heart sounds irregular. EXTREMITIES: Left leg externally rotated. NEUROLOGIC EXAMINATION: Mental status examination, she is awake, alert and oriented to person, place and time. Speech is clear. Naming, repetition, fluency, comprehension all within normal.\ Cranial nerve examination, visual field intact. Pupil reactive to light. Extra movement normal. No nystagmus. No facial sensory deficit. Facial asymmetry manifesting with pulled nasolabial fold on her left side. Hearing is normal. Tongue is midline. Good gag. Motor examination, outstretched hand with eyes closed, no drift noted. Power is symmetric on either side. Extremities: Lower extremities. She would able to lift both lower extremities against the gravity. Left leg is externally rotated on repeated exam. Deep tendon reflexes, biceps, brachialis, triceps absent, both knees are absent. Both ankles are absent. Plantars are upgoing on her left side, right side was downgoing. Sensory examination. No cortical sensory loss. Significant distal sensory motor neuropathy. Coordination: [id number]-yxfmcy test is intact. Gait is deferred at this time. CONCLUSION: Ms. Sarai Freeman as per neurological examination presenting with left hemiparesis which may be new versus old superimposed with vestibulobasilar insufficiency which all could be related to her recent cardiac arrhythmias versus small vessel disease secondary to her hypertension and dyslipidemia. 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 The patient has chronic arthritis and lumbosacral disk disease which may need to use assistance including walker at times. Workup: EKG, atrial fibrillation. LABORATORY DATA: Blood workup: WBC 7, hemoglobin 11.9, hematocrit 35.1, platelet 192. PT 16.8, INR 1.5, PTT 35. Sodium 135, potassium 3.7, chloride 101, bicarbonate of 25 with BUN 16, creatinine 0.7, GFR more than 60, glucose 134, calcium 3.8. BNP 3170. RECOMMENDATIONS: 1. MRI of the brain without gadolinium to rule out any ischemic process in posterior cerebral artery distribution. 2. Carotid Doppler to assess the stenosis. 3. EEG to rule out any paroxysmal activities. 4. Continue statin to stabilize her heart with the digoxin. If no medical contraindication, the patient should get optimized Eliquis dose of 5 mg twice a day to for stroke prophylaxis. At this point, I would like to add aspirin 81 mg to prevent thrombogenesis from chronic hypertension and dyslipidemia. The patient should get out of bed and physical therapy should be entertained. The patient will be followed closely with you. Savage Garcia MD
[2018-10-15] MEDS: cefTRIAXone IV 1 gm in Dextros 50 ML IVPB SCH (22:12)
--- NOTE | 2018-10-15 23:06 | PN ---
DATE: 10/15/2018 SUBJECTIVE: The patient is seen. The patient is very anxious, not sleeping, and refused MRI of the brain today. She says she will do it tomorrow. The patient has very high anxiety. Based on this, we are trying to give her premedication prior to MRI. The patient is aware that she will be in the MRI for 45 minutes and has agreed to be given Ativan to calm her down. She also is not sleeping, and we will give her some sleeping pill. She is very anxious, complaining of weakness. PHYSICAL EXAMINATION: VITAL SIGNS: Temperature 99.1, pulse 100, blood pressure 107/74, respirations 20, and oxygen saturation is 96%. LABORATORY DATA: Review of labs: The patient's UA is showing +1 for glucose, +1 for blood, positive nitrite, presence of urine wbc's 181, urobilinogen 2. REVIEW OF SYSTEMS: GENERAL: The patient is alert, very anxious, seen in her room. She said that she has not been sleeping for a week. SKIN: No diaphoresis. HEENT: No headache. No dizziness. NECK: Supple. RESPIRATORY: No dyspnea. CARDIOVASCULAR: No chest pain. GASTROINTESTINAL: Appetite poor. EXTREMITIES: Gait is unsteady. MUSCULOSKELETAL: Feeling weak. NEUROLOGIC: Alert, oriented x3. GENITOURINARY: No problems. MENTAL STATUS EXAMINATION: Elderly female who looks her stated age, oriented x3. Mood is anxious, somatic. Affect is reactive. Speech is spontaneous. Thought process is coherent. Thought content, the patient is reluctant to go for MRI today but agreed to go for tomorrow. No psychosis, suicidal thought or ideation. Attention and memory seems to be fair. Insight and judgment is limited. Impulse control is fair. IMPRESSION: Mood disorder, anxiety disorder, not otherwise specified. PLAN AND RECOMMENDATION: The patient was seen. Meds were reviewed. Continue Ativan p.r.n. as ordered. We will give Restoril 15 mg at bedtime and may have Ativan 2 mg IV 30 minutes prior to MRI of the brain in the morning. Continue treatment plan as outlined. The patient will be followed by Dr. Garcia as well as Neuro for her neuro problems. Jose Rouse MD [facility] # [id number]
--- NOTE | 2018-10-15 23:07 | CP.PCM.CON ---
History of Present Illness - History of Present Illness History of Present Illness: The patient presents to the ED for evaluation of palpitations and generalized weakness. Patient was recently discharged from the hospital one week ago for similar symptoms, and was found to be in rapid atrial fibrillation. Patient mireya es chest pain at this time. Chief Complaint (Nursing): Palpitations History Per: Patient History/Exam Limitations: no limitations Onset/Duration Of Symptoms: Days Current Symptoms Are (Timing): Still Present Associated Symptoms: denies: Chest Pain Quality Of Symptoms: Irregular Heart Rate Severity: Moderate Pain Scale Rating Of: 4 Exacerbating Factor(s): Pos: None Recent travel outside of the [place]: No Additional History Per: Patient Past Medical History Reviewed: Historical Data, Nursing Documentation, Vital Signs Vital Signs: Last Vital Signs Temp 99.9 F H 10/13/18 23:20 Pulse 130 H 10/13/18 23:20 Resp 22 10/13/18 23:20 BP 90/60 L 10/13/18 23:20 Pulse Ox 96 10/13/18 23:20 - Medical History PMH: Anxiety, Arthritis, Atrial Fibrillation, Depression, Fractures (back), HTN, Hypercholesterolemia Denies: Chronic Kidney Disease Surgical History: No Surg Hx - [facility] Procedures FLUOROSCOPY OF MULT COR ART USING L OSM CONTRAST (06/26/18) FLUOROSCOPY OF RIGHT AND LEFT HEART USING L OSM CONTRAST (06/26/18) MEASURE CARDIAC SAMPL & PRESSURE, BILATERAL, PERC (06/26/18) RELIGIOUS OF CARDIAC RHYTHM, SINGLE (06/26/18) ULTRASONOGRAPHY OF RIGHT AND LEFT HEART, TRANSESOPHAGEAL (06/26/18) Family History: States: No Known Family Hx - Social History Hx Alcohol Use: No Hx Substance Use: No - Immunization History Hx Tetanus Toxoid Vaccination: No Hx Influenza Vaccination: No Hx Pneumococcal Vaccination: No Review Of Systems Constitutional: Negative for: Fever, Chills Eyes: Negative for: Vision Change Cardiovascular: Positive for: Palpitations. Negative for: Chest Pain Respiratory: Negative for: Cough, Shortness of Breath Gastrointestinal: Negative for: Nausea, Vomiting, Abdominal Pain Musculoskeletal: Negative for: Neck Pain, Shoulder Pain, Arm Pain, Back Pain Skin: Negative for: Rash, Lesions, Jaundice, Bruising Neurological: Positive for: Weakness. Negative for: Change in Speech, Headache, Dizziness Psych: Negative for: Anxiety Physical Exam - Physical Exam Appears: Non-toxic, No Acute Distress Skin: Warm, Dry Head: Normacephalic Eye(s): bilateral: Normal Inspection Oral Mucosa: Moist Neck: Supple Chest: Symmetrical, No Deformity, No Tenderness Cardiovascular: No Murmur, Other (irregularly irregular) Respiratory: No Rales, No Rhonchi, No Wheezing Gastrointestinal/Abdominal: Soft, No Tenderness, No Distention Back: Normal Inspection Extremity: Normal ROM, Capillary Refill (less than 2 seconds ) Extremity: Bilateral: Atraumatic, Normal ROM Pulses: Left Dorsalis Pedis: Normal, Right Dorsalis Pedis: Normal Neurological/Psych: Oriented x3 Gait: Steady Past Patient History - Infectious Disease Hx of Infectious Diseases: None - Past Medical History & Family History Past Medical History?: Yes - Past Social History Smoking Status: Former Smoker - CARDIAC Hx Atrial Fibrillation: Yes Hx Hypercholesterolemia: Yes Hx Hypertension: Yes - PULMONARY Hx Respiratory Disorders: No - NEUROLOGICAL Hx Neurological Disorder: Yes Hx Vertigo: Yes - HEENT Hx HEENT Problems: No - RENAL Hx Chronic Kidney Disease: No - ENDOCRINE/METABOLIC Hx Endocrine Disorders: No - HEMATOLOGICAL/ONCOLOGICAL Hx Blood Disorders: No - INTEGUMENTARY Hx Dermatological Problems: No - MUSCULOSKELETAL/RHEUMATOLOGICAL Hx Arthritis: Yes Hx Falls: Yes Hx Fractures: Yes (back) - GASTROINTESTINAL Hx Gastrointestinal Disorders: No - GENITOURINARY/GYNECOLOGICAL Hx Genitourinary Disorders: No - PSYCHIATRIC Hx Anxiety: Yes Hx Depression: Yes Hx Substance Use: No - SURGICAL HISTORY Hx Surgeries: Yes Other/Comment: surgery on right foot for bunion and right leg for varicose veins - ANESTHESIA Hx Anesthesia: Yes Hx Anesthesia Reactions: No Hx Malignant Hyperthermia: No Meds Allergies/Adverse Reactions: Allergies Allergy/AdvReac Type Severity Reaction Status Date / Time shellfish derived Allergy RASH Verified 10/13/18 23:25 ibuprofen AdvReac DIZZINESS Verified 10/13/18 23:25 - Medications Medications: Current Medications Apixaban (Eliquis) 2.5 mg PO BID [facility] Last Admin: 10/15/18 17:31 Dose: 2.5 mg Aspirin (Ecotrin) 81 mg PO DAILY [facility] Last Admin: 10/15/18 09:49 Dose: 81 mg Digoxin (Digoxin) 0.125 mg PO DAILY@1800 [facility] Last Admin: 10/15/18 17:31 Dose: 0.125 mg Ergocalciferol (Drisdol 50,000 Intl Units Cap) 1 cap PO QWK [facility] Last Admin: 10/14/18 10:10 Dose: 1 cap Home Med (Ibandronate Sodium) 150 mg PO DAILY [facility] Home Med (Calcium Carb/Vit D3/Minerals [Calcium 600+D Plus Minerals Tb]) 1 each PO BID [facility] Ceftriaxone Sodium (Rocephin Iv 1 Gm Duplex) 50 mls @ 100 mls/hr IVPB DAILY [facility]; Protocol Last Admin: 10/15/18 22:12 Dose: 100 mls/hr Lorazepam (Ativan) 1 mg PO Q6H PRN PRN Reason: Anxiety Last Admin: 10/14/18 17:34 Dose: 1 mg Lorazepam (Ativan) 2 mg IVP ONCE ONE Stop: 10/16/18 06:01 Memantine (Namenda) 5 mg PO DAILY [facility] Last Admin: 10/15/18 09:49 Dose: 5 mg Metoprolol Tartrate (Lopressor) 25 mg PO BID [facility] Last Admin: 10/15/18 17:31 Dose: 25 mg Rosuvastatin Calcium (Crestor) 5 mg PO HS [facility] Last Admin: 10/15/18 21:51 Dose: 5 mg Temazepam (Restoril) 15 mg PO HS [facility] Last Admin: 10/15/18 21:51 Dose: 15 mg Results - Vital Signs Recent Vital Signs: Last Vital Signs Temp 99.1 F 10/15/18 15:00 Pulse 97 H 10/15/18 16:00 Resp 20 10/15/18 15:00 BP 107/74 10/15/18 17:31 Pulse Ox 96 10/15/18 15:00 - Labs Result Diagrams: 10/14/18 00:41 10/14/18 00:41 Labs: Laboratory Results - last 24 hr 10/15/18 17:48 Urine Color Kori Urine Clarity Hazy Urine pH 5.0 Ur Specific [place] 1.015 Urine Protein 1+ H Urine Glucose (UA) Normal Urine Ketones Negative Urine Blood 1+ H Urine Nitrate Positive H Urine Bilirubin Negative Urine Urobilinogen 2.0 H Ur Leukocyte Esterase 3+ H Urine WBC (Auto) 181 H Urine RBC (Auto) 3 Ur Squamous Epith Cells 1 Calcium Oxalate Crystal Rare Urine Bacteria Rare Assessment & Plan - Assessment and Plan (Free Text) Plan: A Fib Hx of CVA HTN Continue all meds .EP consult with Dr. Odell is pending
--- NOTE | 2018-10-16 00:15 | PN ---
DATE: 10/15/2018 SUBJECTIVE: The patient is seen and examined at bedside. The patient is drowsy but arousable, responding to questions appropriately. Denies any new complaints. PHYSICAL EXAMINATION: GENERAL: Elderly female, lying in bed, in no acute distress. VITAL SIGNS: Blood pressure 107/74, pulse 97, respirations 20, temperature 99.1 degrees Fahrenheit, O2 saturation 96% on room air. HEENT: Pupils equal, round and reacting to light and accommodation. Extraocular muscles intact. No icterus. No pallor. No oral thrush. No pharyngeal congestion. NECK: Supple. No JVD. LUNGS: Bilateral vesicular breath sounds. No wheezing. No rhonchi. CARDIOVASCULAR SYSTEM: S1 and S2 present, regular. ABDOMEN: Soft. Nontender. Bowel sounds are present. No guarding. No rigidity. No rebound tenderness noted. CENTRAL NERVOUS SYSTEM: Alert, awake, oriented x3. No focal deficits appreciated. EXTREMITIES: No edema. Palpable peripheral pulses. MEDICATIONS: Include Eliquis 2.5 mg p.o. b.i.d., Ecotrin 81 mg daily, digoxin 0.125 mg p.o. daily, vitamin D 50,000 units p.o. once a week, Ativan 1 mg p.o. every 6 hours p.r.n., Namenda 5 mg daily, metoprolol 25 mg p.o. b.i.d., Crestor 5 mg p.o. at bedtime, Restoril 15 mg p.o. at bedtime. LABORATORY DATA: Urine consistent with specific gravity of 1.015, pH of 5, protein 1+, blood 1+, nitrite positive, leukocyte esterase 3+, wbc's 181. Urine cultures and blood cultures were done. Chest x-ray negative for any infiltrate. ASSESSMENT AND PLAN: Elderly female with history of hypertension, hyperlipidemia, dementia, osteoarthritis, osteoporosis, atrial fibrillation with rapid ventricular rate, status post cardiac catheterization consistent with nonobstructive coronary artery disease, status post failed cardioversion. MUGA scan showing her ejection fraction at 40%, on long-term anticoagulation. Admitted for atrial fibrillation with rapid ventricular rate, dizziness and palpitations. Neurology consultation appreciated. Psychiatric consultation appreciated. We will increase Eliquis to 5 mg oral b.i.d. for possible MRI. Carotid Doppler done recently three months ago was negative for any stenosis. We will continue with other current medications. Follow up with MRI result. Merle Cuevas MD
--- NOTE | 2018-10-16 08:18 | PN ---
DATE: 10/16/2018 TIME OF EVALUATION: 7 a.m. 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 PHYSICAL EXAMINATION: VITAL SIGNS: Blood pressure 102/70, mean arterial pressure of 80, respiratory rate 18, temperature 98 degrees Fahrenheit, pulse rate 124. The patient is arousable. She feels weak. Not localizing any site. She slept somewhat better than previous night. Speech is clear. Moving all four extremities. She could not get up on her own to go to the bathroom due to the generalized weakness. Her examination which is unchanged to compare with my previous examination. The patient is scheduled to have MRI of the brain today with sedation. The patient is taking Eliquis as advised 5 mg twice a day with baby aspirin. Rest of the workup is on progress. The patient will be followed closely with you. Savage Garcai MD
[2018-10-16] MEDS: cefTRIAXone IV 1 gm in Dextros 50 ML IVPB SCH (11:14)
--- NOTE | 2018-10-16 11:20 | CP.PCM.PN ---
Subjective - Date & Time of Evaluation Date of Evaluation: 10/16/18 Time of Evaluation: 11:20 - Subjective Subjective: Progress note dictated #[id number] Objective - Vital Signs/Intake and Output Vital Signs (last 24 hours): Temp Pulse Resp BP Pulse Ox 98.4 F 97 H 20 102/65 97 10/16/18 08:00 10/16/18 08:00 10/16/18 08:00 10/16/18 11:13 10/16/18 08:00 Intake and Output: 10/16/18 10/16/18 06:59 18:59 Intake Total 530 Balance 530 - Medications Medications: Current Medications Apixaban (Eliquis) 2.5 mg PO BID [facility] Last Admin: 10/16/18 11:14 Dose: 2.5 mg Aspirin (Ecotrin) 81 mg PO DAILY [facility] Last Admin: 10/16/18 11:13 Dose: 81 mg Digoxin (Digoxin) 0.125 mg PO DAILY@1800 [facility] Last Admin: 10/15/18 17:31 Dose: 0.125 mg Ergocalciferol (Drisdol 50,000 Intl Units Cap) 1 cap PO QWK [facility] Last Admin: 10/14/18 10:10 Dose: 1 cap Home Med (Ibandronate Sodium) 150 mg PO DAILY [facility] Home Med (Calcium Carb/Vit D3/Minerals [Calcium 600+D Plus Minerals Tb]) 1 each PO BID [facility] Ceftriaxone Sodium (Rocephin Iv 1 Gm Duplex) 50 mls @ 100 mls/hr IVPB DAILY [facility]; Protocol Last Admin: 10/16/18 11:14 Dose: 100 mls/hr Lorazepam (Ativan) 1 mg PO Q6H PRN PRN Reason: Anxiety Last Admin: 10/14/18 17:34 Dose: 1 mg Memantine (Namenda) 5 mg PO DAILY [facility] Last Admin: 10/16/18 11:17 Dose: 5 mg Metoprolol Tartrate (Lopressor) 25 mg PO BID [facility] Last Admin: 10/16/18 11:13 Dose: 25 mg Rosuvastatin Calcium (Crestor) 5 mg PO HS [facility] Last Admin: 10/15/18 21:51 Dose: 5 mg Temazepam (Restoril) 15 mg PO HS [facility] Last Admin: 10/15/18 21:51 Dose: 15 mg - Labs Labs: 10/14/18 00:41 10/14/18 00:41 PT 16.8 SECONDS (9.7-12.2) H 10/14/18 00:41 INR 1.5 10/14/18 00:41 APTT 35 SECONDS (21-34) H 10/14/18 00:41
--- NOTE | 2018-10-16 11:41 | MRI ---
Date of service: 10/16/2018 PROCEDURE: MRI BRAIN WITHOUT CONTRAST HISTORY: dizziness COMPARISON: Noncontrast head CT from 09/28/2018. TECHNIQUE: Multiplanar, multisequence MR images of the brain were obtained without intravenous contrast enhancement. FINDINGS: HEMORRHAGE: None DWI: No evidence of an acute or early subacute infarction. BRAIN PARENCHYMA: There are severe chronic microangiopathic changes. There are chronic lacunar infarctions in the right caudate head, anterior limb of internal capsule and anterior medial basal ganglia. There is no mass, mass effect or abnormal extra-axial fluid collection. There is no territorial infarction. The midline sagittal structures are normal. VENTRICLES: There is moderate age-related global parenchymal volume loss and proportionate enlargement of the ventricles and cortical sulci. CRANIUM: There is normal bone marrow signal pattern. ORBITS: Grossly unremarkable. PARANASAL SINUSES/MASTOIDS: There is mild mucosal thickening in the anterior ethmoid air cells, worse on the left. The remaining included paranasal sinuses are predominantly clear. VASCULAR SYSTEM: There are normal signal voids in the larger intracranial arteries. OTHER FINDINGS: None. IMPRESSION: No acute intracranial abnormality. Severe chronic microangiopathic changes and moderate age-related global parenchymal volume loss.
--- NOTE | 2018-10-16 11:46 | CP.PCM.CON ---
History of Present Illness - History of Present Illness History of Present Illness: Cardiac-EP Consult Known by prior evaluation Chart imaging reviewed Preliminary assessment Ms. Freeman has paroxysmal atrial fibrillation admitted in ; successfully cardioverted and readmitted with dizziness and syncope Cardiac cath had shown non obstructive coronaries and dilated cardiomyopathy; subsequently the EF improved raising possibilities of tachycardia induced cardiomyopathy Currently being evaluated for hemiparesis In summary Ms. Freeman presented with rapid atrial fibrillation and has a history of dizziness without loss of consciousness rapid atrial fibrillation on a background of recent () detection of atrial fibrillation successful cardioversion and non ischemic cardiomyopathy and documentation of recovering systolic function The index dizziness could plausibly be relted to the tachy-iris syndrome albiet a ventricular arrhythmia is not excluded given the presence of a myocardial substrate; there is no definitive need for sudden prophylaxis Options at this point include exclusion of a new cerebral infarct consideration for anticoagulation and assuming an old infarct choices include rate control versus a rhythm control strategy with addition of amiodarone versus ablation with its attendant risks (tamponade esophageal injury and stroke) I would discuss with Dr. Joshi, the patient and her family Past Patient History - Infectious Disease Hx of Infectious Diseases: None - Past Medical History & Family History Past Medical History?: Yes - Past Social History Smoking Status: Former Smoker - CARDIAC Hx Atrial Fibrillation: Yes Hx Hypercholesterolemia: Yes Hx Hypertension: Yes - PULMONARY Hx Respiratory Disorders: No - NEUROLOGICAL Hx Neurological Disorder: Yes Hx Vertigo: Yes - HEENT Hx HEENT Problems: No - RENAL Hx Chronic Kidney Disease: No - ENDOCRINE/METABOLIC Hx Endocrine Disorders: No - HEMATOLOGICAL/ONCOLOGICAL Hx Blood Disorders: No - INTEGUMENTARY Hx Dermatological Problems: No - MUSCULOSKELETAL/RHEUMATOLOGICAL Hx Arthritis: Yes Hx Falls: Yes Hx Fractures: Yes (back) - GASTROINTESTINAL Hx Gastrointestinal Disorders: No - GENITOURINARY/GYNECOLOGICAL Hx Genitourinary Disorders: No - PSYCHIATRIC Hx Anxiety: Yes Hx Depression: Yes Hx Substance Use: No - SURGICAL HISTORY Hx Surgeries: Yes Other/Comment: surgery on right foot for bunion and right leg for varicose veins - ANESTHESIA Hx Anesthesia: Yes Hx Anesthesia Reactions: No Hx Malignant Hyperthermia: No Meds Allergies/Adverse Reactions: Allergies Allergy/AdvReac Type Severity Reaction Status Date / Time shellfish derived Allergy RASH Verified 10/13/18 23:25 ibuprofen AdvReac DIZZINESS Verified 10/13/18 23:25 - Medications Medications: Current Medications Apixaban (Eliquis) 2.5 mg PO BID [facility] Last Admin: 10/16/18 11:14 Dose: 2.5 mg Aspirin (Ecotrin) 81 mg PO DAILY [facility] Last Admin: 10/16/18 11:13 Dose: 81 mg Digoxin (Digoxin) 0.125 mg PO DAILY@1800 [facility] Last Admin: 10/15/18 17:31 Dose: 0.125 mg Ergocalciferol (Drisdol 50,000 Intl Units Cap) 1 cap PO QWK [facility] Last Admin: 10/14/18 10:10 Dose: 1 cap Home Med (Ibandronate Sodium) 150 mg PO DAILY [facility] Home Med (Calcium Carb/Vit D3/Minerals [Calcium 600+D Plus Minerals Tb]) 1 each PO BID [facility] Ceftriaxone Sodium (Rocephin Iv 1 Gm Duplex) 50 mls @ 100 mls/hr IVPB DAILY [facility]; Protocol Last Admin: 10/16/18 11:14 Dose: 100 mls/hr Lorazepam (Ativan) 1 mg PO Q6H PRN PRN Reason: Anxiety Last Admin: 10/14/18 17:34 Dose: 1 mg Memantine (Namenda) 5 mg PO DAILY [facility] Last Admin: 10/16/18 11:17 Dose: 5 mg Metoprolol Tartrate (Lopressor) 25 mg PO BID [facility] Last Admin: 10/16/18 11:13 Dose: 25 mg Rosuvastatin Calcium (Crestor) 5 mg PO HS [facility] Last Admin: 10/15/18 21:51 Dose: 5 mg Temazepam (Restoril) 15 mg PO HS [facility] Last Admin: 10/15/18 21:51 Dose: 15 mg Results - Vital Signs Recent Vital Signs: Last Vital Signs Temp 98.4 F 10/16/18 08:00 Pulse 97 H 10/16/18 08:00 Resp 20 10/16/18 08:00 BP 102/65 10/16/18 11:13 Pulse Ox 97 10/16/18 08:00 - Labs Result Diagrams: 10/14/18 00:41 10/14/18 00:41 Labs: Laboratory Results - last 24 hr 10/15/18 17:48 Urine Color Kori Urine Clarity Hazy Urine pH 5.0 Ur Specific Alpha 1.015 Urine Protein 1+ H Urine Glucose (UA) Normal Urine Ketones Negative Urine Blood 1+ H Urine Nitrate Positive H Urine Bilirubin Negative Urine Urobilinogen 2.0 H Ur Leukocyte Esterase 3+ H Urine WBC (Auto) 181 H Urine RBC (Auto) 3 Ur Squamous Epith Cells 1 Calcium Oxalate Crystal Rare Urine Bacteria Rare
[2018-10-16] MEDS: Digoxin 125 mcg (0.125 mg) Tab PO SCH (17:26)
--- NOTE | 2018-10-16 18:47 | CP.PCM.PN ---
Subjective - Date & Time of Evaluation Date of Evaluation: 10/16/18 Time of Evaluation: 14:10 - Subjective Subjective: Patient was seen and examined at bedside. Patient states that she is doing well and has no complaints. Patient denies chest pain, palpitations, SOB, dizziness and lightheadedness. Physical Examination - Constitutional Appears: Well, No Acute Distress - Head Exam Head Exam: ATRAUMATIC, NORMAL INSPECTION - Eye Exam Eye Exam: EOMI, Normal appearance - ENT Exam ENT Exam: Mucous Membranes Moist - Respiratory Exam Respiratory Exam: Clear to Ausculation Bilateral, NORMAL BREATHING PATTERN. absent: Prolonged Expiratory Phase, Rhonchi, Wheezes - Cardiovascular Exam Cardiovascular Exam: REGULAR RHYTHM, +S1, +S2. absent: Murmur Additional comments: During the exam, patient was in NSR - GI/Abdominal Exam GI & Abdominal Exam: Soft, Normal Bowel Sounds. absent: Distended, Firm, Guarding, Rigid, Tenderness - Extremities Exam Extremities Exam: Normal Inspection. absent: Calf Tenderness, Pedal Edema - Neurological Exam Neurological Exam: Alert, Awake, Oriented x3 - Psychiatric Exam Psychiatric exam: Normal Affect, Normal Mood - Skin Skin Exam: Normal Color Assessment and Plan (1) Atrial fibrillation Assessment & Plan: Patient is a 72 year old female with past medical history of Anxiety, Arthritis, Depression, HTN, Hypercholesterolemia and atrial fibrillation, who had cardiac catherization over the course of admission, which showed Non Obstructive coronaries A Fib and CVA management Objective - Vital Signs/Intake and Output Vital Signs (last 24 hours): Temp Pulse Resp BP Pulse Ox 97.8 F 113 H 20 100/67 97 10/16/18 15:00 10/16/18 16:00 10/16/18 15:00 10/16/18 17:26 10/16/18 15:00 Intake and Output: 10/16/18 10/16/18 06:59 18:59 Intake Total 530 400 Balance 530 400 - Medications Medications: Current Medications Apixaban (Eliquis) 2.5 mg PO BID [facility] Last Admin: 10/16/18 17:26 Dose: 2.5 mg Aspirin (Ecotrin) 81 mg PO DAILY [facility] Last Admin: 10/16/18 11:13 Dose: 81 mg Calcium/Vitamin D (Oyster Shell Calcium/Vitamin D 500 Mg-200 Iu) 1 tab PO DAILY [facility] Digoxin (Digoxin) 0.125 mg PO DAILY@1800 [facility] Last Admin: 10/16/18 17:26 Dose: 0.125 mg Ergocalciferol (Drisdol 50,000 Intl Units Cap) 1 cap PO QWK [facility] Last Admin: 10/14/18 10:10 Dose: 1 cap Home Med (Ibandronate Sodium) 150 mg PO DAILY [facility] Ceftriaxone Sodium (Rocephin Iv 1 Gm Duplex) 50 mls @ 100 mls/hr IVPB DAILY [facility]; Protocol Last Admin: 10/16/18 11:14 Dose: 100 mls/hr Lorazepam (Ativan) 1 mg PO Q6H PRN PRN Reason: Anxiety Last Admin: 10/14/18 17:34 Dose: 1 mg Memantine (Namenda) 5 mg PO DAILY [facility] Last Admin: 10/16/18 11:17 Dose: 5 mg Metoprolol Tartrate (Lopressor) 25 mg PO BID [facility] Last Admin: 10/16/18 17:26 Dose: 25 mg Rosuvastatin Calcium (Crestor) 5 mg PO HS [facility] Last Admin: 10/15/18 21:51 Dose: 5 mg Temazepam (Restoril) 15 mg PO HS [facility] Last Admin: 10/15/18 21:51 Dose: 15 mg - Labs Labs: 10/14/18 00:41 10/14/18 00:41 PT 16.8 SECONDS (9.7-12.2) H 10/14/18 00:41 INR 1.5 10/14/18 00:41 APTT 35 SECONDS (21-34) H 10/14/18 00:41
--- NOTE | 2018-10-16 20:41 | PN ---
DATE: 10/16/2018 SUBJECTIVE: The patient is seen. The patient went for MRI of the brain today earlier and was given Ativan 2 mg IV, and was able to tolerate the test. The result of the MRI showed no acute abnormality. The patient, however, was very drowsy. The patient could hardly talk. She said she wants to sleep. The patient did not eat her lunch. Also given Restoril for sleep last night. PHYSICAL EXAMINATION: VITAL SIGNS: Temperature 97.8, pulse 90, blood pressure 100/67, respirations 20, oxygen saturation is 97%. REVIEW OF SYSTEMS: CONSTITUTIONAL: The patient is drowsy, but arousable. Seen in her room, sleeping. SKIN: No diaphoresis. HEENT: No headache. No dizziness. NECK: Supple. RESPIRATORY: No dyspnea. CARDIOVASCULAR: No chest pain. GASTROINTESTINAL: No nausea. No vomiting. EXTREMITIES: The patient is moving extremities. MUSCULOSKELETAL: Feels weak. NEUROLOGIC: Alert with periods of confusion probably from the effect of the medication. GENITOURINARY: No dysuria. MENTAL STATUS EXAMINATION: Elderly female who looks stated age, drowsy but arousable. Speech is slow. Affect is restricted. Mood is dysphoric. Thought process is coherent. Thought content, no psychosis, no suicidal or homicidal ideation. Attention and memory seem to be limited. Insight and judgment limited. Impulse control is fair. IMPRESSION: Anxiety disorder as well as mood disorder secondary to medical problems. PLAN AND RECOMMENDATION: The patient is seen. Meds reviewed. Continue present management. Continue Ativan p.r.n. as well as the Restoril for sleep. I suggest to hold the Restoril if the patient is very drowsy. Jose Rouse MD
--- NOTE | 2018-10-16 22:59 | PN ---
DATE: 10/16/2018 SUBJECTIVE: The patient was seen and examined at bedside. The patient is still complaining of generalized fatigue and weakness. Denies any new complaints. PHYSICAL EXAMINATION: GENERAL: Elderly female, lying in bed, in no acute distress. VITAL SIGNS: Blood pressure 100/67, pulse 90, respirations 20, temperature 97.8 degrees Fahrenheit, O2 sat 97% on 2 L nasal cannula. HEENT: Pupils equal, round, and reacting to light and accommodation. Extraocular muscles intact. No icterus. No pallor. NECK: Supple. No JVD. LUNGS: Bilateral vesicular breath sounds. No wheezing. No rhonchi. CARDIOVASCULAR SYSTEM: S1 and S2 present. Irregularly irregular. ABDOMEN: Soft. Nontender. Bowel sounds present. No guarding. No rigidity. No rebound tenderness noted. CENTRAL NERVOUS SYSTEM: Drowsy but arousable, responding to persons appropriately, oriented x3. No focal deficits noted. EXTREMITIES: No edema. Palpable peripheral pulses. MEDICATIONS: Include Eliquis 2.5 mg p.o. b.i.d., Ecotrin 81 mg daily, calcium with vitamin D, Rocephin 1 g daily, digoxin 0.125 mg daily, vitamin D 50,000 units 1 cap p.o. every week, Ativan 1 mg every 6 hours p.r.n., Namenda 5 mg daily, Lopressor 25 mg p.o. b.i.d., Crestor 5 mg p.o. at bedtime, Restoril 15 mg p.o. at bedtime. LABORATORY DATA: Urine culture positive for gram-negative rods, identification pending. Seymour count, more than 100,000 colony forming units. ASSESSMENT AND PLAN: Elderly female with history of recurrent atrial fibrillation with rapid ventricular rate, hypertension, hyperlipidemia, history of cardiomyopathy with repeat multiple gated acquisition scan showing ejection fraction of 40%, on long-term anticoagulation, status post cardiac catheterization, status post failed cardioversion, admitted for generalized fatigue, weakness, atrial fibrillation with rapid ventricular rate and found to have urinary tract infection. Magnetic resonance imaging does not show any acute intracranial abnormality other than severe chronic microangiopathic changes and moderate age related global parenchymal volume loss. Her blood pressures are on the lower side on metoprolol. Awaiting for electrophysiology consult. We will continue with current medications. Follow up with Cardiology and Neurology. We will discuss with the patient's daughter, social service agency director for discharge planning. Merle Cuevas MD
[2018-10-17 06:41] LABS: BASO % 0.8 % (0.0-2.0); EOS # 0.2 K/uL (0.0-0.7); EOS % 4.2 % (0.0-4.0); HEMOGLOBIN 10.6 g/dL (11.0-16.0); LYMPH # 0.9 K/uL (1.0-4.3); MEAN CELL VOLUME 90.1 fL (81.0-99.0); MEAN CORPUSCULAR HEMOGLOBIN 30.3 pg (27.0-31.0); MEAN CORPUSCULAR HGB CONC 33.6 g/dL (33.0-37.0); MEAN PLATELET VOLUME 9.4 fL (7.2-11.7); MONO # 0.5 K/uL (0.0-0.8); MONO % 10.8 % (0.0-10.0); NEUT # 2.8 K/uL (1.8-7.0); NEUT % 64.2 % (50.0-75.0); NRBC % 0.1 % (0.0-2.0); RBC 3.51 Mil/uL (3.80-5.20); RED CELL DISTRIBUTION WIDTH 12.8 % (11.5-14.5); WHITE BLOOD COUNT 4.3 K/uL (4.8-10.8)
[2018-10-17 06:57] LABS: ALB/GLOB RATIO 1.1 (1.0-2.1); ALBUMIN 3.2 g/dL (3.5-5.0); ALT/SGPT 21 U/L (9-52); AST/SGOT 19 U/L (14-36); BLOOD UREA NITROGEN 13 mg/dL (7-17); CALCIUM 7.8 mg/dl (8.6-10.4); GFR NON-AFRICAN AMERICAN > 60
--- NOTE | 2018-10-17 10:15 | CP.PCM.PN ---
Subjective - Date & Time of Evaluation Date of Evaluation: 10/17/18 Time of Evaluation: 10:14 - Subjective Subjective: Progress note dictated #[id number] Objective - Vital Signs/Intake and Output Vital Signs (last 24 hours): Temp Pulse Resp BP Pulse Ox 97.9 F 89 20 95/64 L 97 10/17/18 08:09 10/17/18 08:09 10/17/18 08:09 10/17/18 08:09 10/17/18 08:09 - Medications Medications: Current Medications Apixaban (Eliquis) 2.5 mg PO BID [facility] Last Admin: 10/16/18 17:26 Dose: 2.5 mg Aspirin (Ecotrin) 81 mg PO DAILY [facility] Last Admin: 10/16/18 11:13 Dose: 81 mg Calcium/Vitamin D (Oyster Shell Calcium/Vitamin D 500 Mg-200 Iu) 1 tab PO DAILY [facility] Digoxin (Digoxin) 0.125 mg PO DAILY@1800 [facility] Last Admin: 10/16/18 17:26 Dose: 0.125 mg Ergocalciferol (Drisdol 50,000 Intl Units Cap) 1 cap PO QWK [facility] Last Admin: 10/14/18 10:10 Dose: 1 cap Home Med (Ibandronate Sodium) 150 mg PO DAILY [facility] Ceftriaxone Sodium (Rocephin Iv 1 Gm Duplex) 50 mls @ 100 mls/hr IVPB DAILY [facility]; Protocol Last Admin: 10/16/18 11:14 Dose: 100 mls/hr Lorazepam (Ativan) 1 mg PO Q6H PRN PRN Reason: Anxiety Last Admin: 10/14/18 17:34 Dose: 1 mg Memantine (Namenda) 5 mg PO DAILY [facility] Last Admin: 10/16/18 11:17 Dose: 5 mg Metoprolol Tartrate (Lopressor) 25 mg PO BID [facility] Last Admin: 10/16/18 17:26 Dose: 25 mg Rosuvastatin Calcium (Crestor) 5 mg PO HS [facility] Last Admin: 10/16/18 21:31 Dose: 5 mg Temazepam (Restoril) 15 mg PO HS [facility] Last Admin: 10/16/18 21:31 Dose: Not Given - Labs Labs: 10/17/18 06:32 10/17/18 06:32 PT 16.8 SECONDS (9.7-12.2) H 10/14/18 00:41 INR 1.5 10/14/18 00:41 APTT 35 SECONDS (21-34) H 10/14/18 00:41
[2018-10-17] MEDS: Calcium-Vit D 500 mg-200 Units Tab UD PO SCH (10:39)
[2018-10-17] MEDS: cefTRIAXone IV 1 gm in Dextros 50 ML IVPB SCH (10:40)
[2018-10-17] MEDS: Digoxin 125 mcg (0.125 mg) Tab PO SCH (17:50)
--- NOTE | 2018-10-17 21:07 | PN ---
DATE: 10/17/2018 SUBJECTIVE: The patient is seen. The patient is drowsy but arousable. Seen today. She says she is willing to go for subacute rehab. The patient is catching up with her sleep being in the hospital. She states that she did not sleep for weeks at home due to a problem with her neighbor. PHYSICAL EXAMINATION: VITAL SIGNS: Temperature is 97.9, pulse rate is 107, respiration is 20, BP is low 96/60, oxygen saturation 97%. MEDICATIONS: The patient was given Restoril last night, so she was so drowsy. The patient is on Ativan p.r.n. and Restoril. REVIEW OF SYSTEMS: CONSTITUTIONAL: She is drowsy but arousable. Seen in her room. She is catching up with her sleep. SKIN: No diaphoresis. HEENT: No headache. No dizziness. NECK: Supple. RESPIRATORY: No dyspnea. CARDIOVASCULAR: No chest pain. GASTROINTESTINAL: No nausea. No vomiting. EXTREMITIES: The patient is moving extremities. MUSCULOSKELETAL: Feels weak. NEURO: Alert and oriented x3. GENITOURINARY: No dysuria. MENTAL STATUS EXAMINATION: Elderly female who looks stated her age. Alert and oriented x3. Mood is less anxious, somatic. Affect is reactive. Speech is spontaneous. Thought process is coherent. Thought content, the patient states that she wants to go for subacute rehab. She does not want to go back home because of her issues with her neighbor. No psychosis. No suicidal thought or ideation. Attention and memory seems to be fair. Insight and judgment is limited. Impulse control is fair. IMPRESSION: Anxiety disorder, mood disorder secondary to medical problems, history of atrial fibrillation. PLAN AND RECOMMENDATION: The patient is seen. Meds reviewed. Continue Restoril 15 mg at bedtime as well as the Ativan 1 mg every 6 hours p.r.n. The patient notes the patient is taking also Namenda 5 mg daily for dementia. For now, she can continue all her meds. The patient is for subacute rehab once medically cleared. The patient at this time is amenable for subacute rehab. Jose Rouse MD
--- NOTE | 2018-10-17 23:35 | CP.PCM.PN ---
Subjective - Date & Time of Evaluation Date of Evaluation: 10/17/18 Time of Evaluation: 07:20 - Subjective Subjective: Patient seen and examined at bedside. No cardiac events noted No new complaints Objective - Vital Signs/Intake and Output Vital Signs (last 24 hours): Temp Pulse Resp BP Pulse Ox 98 F 87 18 107/73 97 10/17/18 22:00 10/17/18 22:00 10/17/18 22:00 10/17/18 22:00 10/17/18 15:00 Intake and Output: 10/17/18 10/18/18 18:59 06:59 Intake Total 510 300 Balance 510 300 - Medications Medications: Current Medications Apixaban (Eliquis) 2.5 mg PO BID [facility] Last Admin: 10/17/18 17:50 Dose: 2.5 mg Aspirin (Ecotrin) 81 mg PO DAILY [facility] Last Admin: 10/17/18 10:37 Dose: 81 mg Calcium/Vitamin D (Oyster Shell Calcium/Vitamin D 500 Mg-200 Iu) 1 tab PO DAILY [facility] Last Admin: 10/17/18 10:39 Dose: 1 tab Digoxin (Digoxin) 0.125 mg PO DAILY@1800 [facility] Last Admin: 10/17/18 17:50 Dose: 0.125 mg Ergocalciferol (Drisdol 50,000 Intl Units Cap) 1 cap PO QWK [facility] Last Admin: 10/14/18 10:10 Dose: 1 cap Home Med (Ibandronate Sodium) 150 mg PO DAILY [facility] Ceftriaxone Sodium (Rocephin Iv 1 Gm Duplex) 50 mls @ 100 mls/hr IVPB DAILY [facility]; Protocol Last Admin: 10/17/18 10:40 Dose: 100 mls/hr Lorazepam (Ativan) 1 mg PO Q6H PRN PRN Reason: Anxiety Last Admin: 10/14/18 17:34 Dose: 1 mg Memantine (Namenda) 5 mg PO DAILY [facility] Last Admin: 10/17/18 10:37 Dose: 5 mg Metoprolol Tartrate (Lopressor) 25 mg PO BID [facility] Last Admin: 10/17/18 17:50 Dose: 25 mg Rosuvastatin Calcium (Crestor) 5 mg PO HS [facility] Last Admin: 10/17/18 21:49 Dose: 5 mg Temazepam (Restoril) 15 mg PO HS [facility] Last Admin: 10/17/18 21:50 Dose: Not Given - Labs Labs: 10/17/18 06:32 10/17/18 06:32 PT 16.8 SECONDS (9.7-12.2) H 10/14/18 00:41 INR 1.5 10/14/18 00:41 APTT 35 SECONDS (21-34) H 10/14/18 00:41
--- NOTE | 2018-10-18 00:09 | PN ---
DATE: 10/17/2018 SUBJECTIVE: The patient was seen and examined at bedside. The patient is complaining of generalized fatigue and weakness and unsteady gait. Denies any other new complaints. PHYSICAL EXAMINATION: GENERAL: Elderly female, lying in bed, in no acute distress. VITAL SIGNS: Blood pressure 119/80, pulse 78, respirations 20, temperature 98.2 degrees Fahrenheit, O2 sat 97% on 2 L nasal cannula. HEENT: Pupils equal, round and reacting to light and accommodation. Extraocular muscles intact. No icterus. No pallor. No oral thrush. No pharyngeal congestion. NECK: Supple. No JVD. LUNGS: Bilateral vesicular breath sounds. No wheezing. No rhonchi. CARDIOVASCULAR SYSTEM: S1 and S2 present, regular. ABDOMEN: Soft, nontender. Bowel sounds present. No guarding. No rigidity. No rebound tenderness noted. CENTRAL NERVOUS SYSTEM: Alert, awake, oriented x3. No focal deficits noted. EXTREMITIES: No edema. Palpable peripheral pulses. MEDICATIONS: Include Eliquis 2.5 mg p.o. b.i.d., aspirin 81 mg daily, Rocephin 1 g IV daily, digoxin 0.125 mg daily, vitamin D 50,000 units p.o. weekly, Namenda 5 mg p.o. daily, Lopressor 25 mg p.o. b.i.d., Crestor 5 mg p.o. at bedtime, Restoril 15 mg p.o. at bedtime. LABORATORY DATA: Labs from today: WBC 4.3, hemoglobin 10.6, hematocrit 31.6, platelets 181. Sodium 135, potassium 4, chloride 102, bicarb 28, BUN 13, creatinine 0.5, glucose 107, calcium 7.8, phosphorus 4.2, magnesium 2. Total bilirubin 2.9, AST 19, ALT 21, alkaline phosphatase 62, total protein 6.1, albumin 3.2. Urine culture positive for E. coli, sensitive to Rocephin. ASSESSMENT AND PLAN: Elderly female with history of hypertension; hyperlipidemia; recurrent atrial fibrillation, on anticoagulation; dementia; osteoarthritis; osteoporosis; and dizziness. Admitted for atrial fibrillation with rapid ventricular rate and unsteady gait and dizziness. All the workup so far is negative. All the consultants' notes appreciated. We will hold Ativan and Restoril for now as the patient has been complaining of sleepiness and drowsiness. We will request physical therapy. I will request director social welfare for possible subacute rehabilitation placement. Discussed with daughter at length yesterday regarding discharge planning. Continue with current medications. Continue with Rocephin for urinary tract infection. Odalysvaeriberto Cuevas MD
[2018-10-18] MEDS: cefTRIAXone IV 1 gm in Dextros 50 ML IVPB SCH (09:53)
[2018-10-18] MEDS: Calcium-Vit D 500 mg-200 Units Tab UD PO SCH (09:55)
--- NOTE | 2018-10-18 14:31 | CP.PCM.PN ---
Subjective - Date & Time of Evaluation Date of Evaluation: 10/18/18 Time of Evaluation: 14:30 - Subjective Subjective: Progress note dictated # [id number] Objective - Vital Signs/Intake and Output Vital Signs (last 24 hours): Temp Pulse Resp BP Pulse Ox 97.3 F L 90 18 103/70 96 10/18/18 07:20 10/18/18 08:45 10/18/18 07:20 10/18/18 09:55 10/18/18 07:20 Intake and Output: 10/18/18 10/18/18 06:59 18:59 Intake Total 300 500 Balance 300 500 - Medications Medications: Current Medications Apixaban (Eliquis) 2.5 mg PO BID [facility] Last Admin: 10/18/18 09:54 Dose: 2.5 mg Aspirin (Ecotrin) 81 mg PO DAILY [facility] Last Admin: 10/18/18 09:54 Dose: 81 mg Calcium/Vitamin D (Oyster Shell Calcium/Vitamin D 500 Mg-200 Iu) 1 tab PO DAILY [facility] Last Admin: 10/18/18 09:55 Dose: 1 tab Digoxin (Digoxin) 0.125 mg PO DAILY@1800 [facility] Last Admin: 10/17/18 17:50 Dose: 0.125 mg Ergocalciferol (Drisdol 50,000 Intl Units Cap) 1 cap PO QWK [facility] Last Admin: 10/14/18 10:10 Dose: 1 cap Home Med (Ibandronate Sodium) 150 mg PO DAILY [facility] Ceftriaxone Sodium (Rocephin Iv 1 Gm Duplex) 50 mls @ 100 mls/hr IVPB DAILY [facility]; Protocol Last Admin: 10/18/18 09:53 Dose: 100 mls/hr Lorazepam (Ativan) 1 mg PO Q6H PRN PRN Reason: Anxiety Last Admin: 10/14/18 17:34 Dose: 1 mg Memantine (Namenda) 5 mg PO DAILY [facility] Last Admin: 10/18/18 09:54 Dose: 5 mg Metoprolol Tartrate (Lopressor) 25 mg PO BID [facility] Last Admin: 10/18/18 09:55 Dose: 25 mg Rosuvastatin Calcium (Crestor) 5 mg PO HS [facility] Last Admin: 10/17/18 21:49 Dose: 5 mg Temazepam (Restoril) 15 mg PO HS [facility] Last Admin: 12/29/18 21:50 Dose: Not Given - Labs Labs: 10/17/18 06:32 10/17/18 06:32 PT 16.8 SECONDS (9.7-12.2) H 10/14/18 00:41 INR 1.5 10/14/18 00:41 APTT 35 SECONDS (21-34) H 10/14/18 00:41
[2018-10-18] MEDS: Digoxin 125 mcg (0.125 mg) Tab PO SCH (17:27)
--- NOTE | 2018-10-18 20:03 | PN ---
DATE: 10/18/2018 SUBJECTIVE: The patient is seen and examined at bedside. The patient is slightly feeling better but is still complaining of unsteady gait and not able to walk to the bathroom. Denies any other new complaints. PHYSICAL EXAMINATION GENERAL: An elderly female, lying in bed, in no acute distress. VITAL SIGNS: Blood pressure 103/70, pulse 90, respirations 18, temperature 97.3 degrees Fahrenheit, O2 sat 96% on room air. HEENT: Pupils equal, round and reacting to light and accommodation. Extraocular muscles intact. No icterus, no pallor, no oral thrush, no pharyngeal congestion. NECK: Supple. No JVD. LUNGS: Bilateral vesicular breath sounds. No wheezing, no rhonchi. CARDIOVASCULAR SYSTEM: S1 and S2 present, regular. ABDOMEN: Soft and nontender. Bowel sounds present. No guarding, no rigidity. No rebound tenderness noted. CENTRAL NERVOUS SYSTEM: Alert, awake, oriented x3. No focal deficits noted. EXTREMITIES: No edema. Palpable peripheral pulses. LABORATORY DATA: No new labs from this morning. MEDICATIONS: Include Eliquis 2.5 mg b.i.d., aspirin 81 mg daily, Rocephin 1 g IV daily, digoxin 0.125 mg daily, vitamin D 50,000 units every week, metoprolol 25 mg p.o. b.i.d., Crestor 5 mg p.o. at bedtime and Restoril 15 mg p.o. at bedtime. ASSESSMENT AND PLAN: An elderly female with a history of hypertension, hyperlipidemia, recurrent atrial fibrillation, on long-term anticoagulation, admitted for atrial fibrillation with rapid ventricular rate with palpitations, anxiety and urinary tract infection. The patient's heart rates are controlled. All the workup is negative so far. The patient is waiting for possible subacute rehab placement when bed available. Discussed with the patient and the patient's daughter at length. Follow up with Bariatric Nurse for discharge plan. Merle Cuevas MD
--- NOTE | 2018-10-18 20:18 | CP.PCM.PN ---
Subjective - Date & Time of Evaluation Date of Evaluation: 10/18/18 Time of Evaluation: 16:20 - Subjective Subjective: Patient was seen and examined at bedside. Patient states that she is doing well and has no complaints. Patient denies chest pain, palpitations, SOB, dizziness and lightheadedness. Physical Examination - Constitutional Appears: Well, No Acute Distress - Head Exam Head Exam: ATRAUMATIC, NORMAL INSPECTION - Eye Exam Eye Exam: EOMI, Normal appearance - ENT Exam ENT Exam: Mucous Membranes Moist - Respiratory Exam Respiratory Exam: Clear to Ausculation Bilateral, NORMAL BREATHING PATTERN. absent: Prolonged Expiratory Phase, Rhonchi, Wheezes - Cardiovascular Exam Cardiovascular Exam: REGULAR RHYTHM, +S1, +S2. absent: Murmur Additional comments: During the exam, patient was in NSR - GI/Abdominal Exam GI & Abdominal Exam: Soft, Normal Bowel Sounds. absent: Distended, Firm, Guarding, Rigid, Tenderness - Extremities Exam Extremities Exam: Normal Inspection. absent: Calf Tenderness, Pedal Edema - Neurological Exam Neurological Exam: Alert, Awake, Oriented x3 - Psychiatric Exam Psychiatric exam: Normal Affect, Normal Mood - Skin Skin Exam: Normal Color Assessment and Plan (1) Atrial fibrillation Assessment & Plan: Patient is a 72 year old female with past medical history of Anxiety, Arthritis, Depression, HTN, Hypercholesterolemia and atrial fibrillation, who had cardiac catherization over the course of admission, which showed Non Obstructive coronaries A Fib and CVA management MRI: Negative for CVA Awaiting JEAN placement Objective - Vital Signs/Intake and Output Vital Signs (last 24 hours): Temp Pulse Resp BP Pulse Ox 98.5 F 77 20 110/70 95 10/18/18 15:53 10/18/18 19:27 10/18/18 15:53 10/18/18 17:27 10/18/18 15:53 Intake and Output: 10/18/18 10/19/18 18:59 06:59 Intake Total 600 200 Balance 600 200 - Medications Medications: Current Medications Apixaban (Eliquis) 2.5 mg PO BID [facility] Last Admin: 10/18/18 17:27 Dose: 2.5 mg Aspirin (Ecotrin) 81 mg PO DAILY [facility] Last Admin: 10/18/18 09:54 Dose: 81 mg Calcium/Vitamin D (Oyster Shell Calcium/Vitamin D 500 Mg-200 Iu) 1 tab PO DAILY [facility] Last Admin: 10/18/18 09:55 Dose: 1 tab Digoxin (Digoxin) 0.125 mg PO DAILY@1800 [facility] Last Admin: 10/18/18 17:27 Dose: 0.125 mg Ergocalciferol (Drisdol 50,000 Intl Units Cap) 1 cap PO QWK [facility] Last Admin: 10/14/18 10:10 Dose: 1 cap Home Med (Ibandronate Sodium) 150 mg PO DAILY [facility] Ceftriaxone Sodium (Rocephin Iv 1 Gm Duplex) 50 mls @ 100 mls/hr IVPB DAILY [facility]; Protocol Last Admin: 10/18/18 09:53 Dose: 100 mls/hr Lorazepam (Ativan) 1 mg PO Q6H PRN PRN Reason: Anxiety Last Admin: 10/14/18 17:34 Dose: 1 mg Memantine (Namenda) 5 mg PO DAILY [facility] Last Admin: 10/18/18 09:54 Dose: 5 mg Metoprolol Tartrate (Lopressor) 25 mg PO BID [facility] Last Admin: 10/18/18 17:27 Dose: 25 mg Rosuvastatin Calcium (Crestor) 5 mg PO HS [facility] Last Admin: 10/17/18 21:49 Dose: 5 mg Temazepam (Restoril) 15 mg PO HS [facility] Last Admin: 10/17/18 21:50 Dose: Not Given - Labs Labs: 10/17/18 06:32 10/17/18 06:32 PT 16.8 SECONDS (9.7-12.2) H 10/14/18 00:41 INR 1.5 10/14/18 00:41 APTT 35 SECONDS (21-34) H 10/14/18 00:41
[2018-10-19] MEDS: cefTRIAXone IV 1 gm in Dextros 50 ML IVPB SCH (09:56)
[2018-10-19] MEDS: Calcium-Vit D 500 mg-200 Units Tab UD PO SCH (10:02)
--- NOTE | 2018-10-19 12:09 | CP.PCM.PN ---
Subjective - Date & Time of Evaluation Date of Evaluation: 10/19/18 Time of Evaluation: 12:09 - Subjective Subjective: Progress note dictated # [id number] Objective - Vital Signs/Intake and Output Vital Signs (last 24 hours): Temp Pulse Resp BP Pulse Ox 97.6 F 91 H 20 117/79 96 10/19/18 08:00 10/19/18 08:00 10/19/18 08:00 10/19/18 09:57 10/19/18 08:00 Intake and Output: 10/19/18 10/19/18 06:59 18:59 Intake Total 300 Balance 300 - Medications Medications: Current Medications Apixaban (Eliquis) 2.5 mg PO BID [facility] Last Admin: 10/19/18 09:57 Dose: 2.5 mg Aspirin (Ecotrin) 81 mg PO DAILY [facility] Last Admin: 10/19/18 09:57 Dose: 81 mg Calcium/Vitamin D (Oyster Shell Calcium/Vitamin D 500 Mg-200 Iu) 1 tab PO DAILY [facility] Last Admin: 10/19/18 10:02 Dose: 1 tab Digoxin (Digoxin) 0.125 mg PO DAILY@1800 [facility] Last Admin: 10/18/18 17:27 Dose: 0.125 mg Ergocalciferol (Drisdol 50,000 Intl Units Cap) 1 cap PO QWK [facility] Last Admin: 10/14/18 10:10 Dose: 1 cap Home Med (Ibandronate Sodium) 150 mg PO DAILY [facility] Ceftriaxone Sodium (Rocephin Iv 1 Gm Duplex) 50 mls @ 100 mls/hr IVPB DAILY [facility]; Protocol Last Admin: 10/19/18 09:56 Dose: 100 mls/hr Lorazepam (Ativan) 1 mg PO Q6H PRN PRN Reason: Anxiety Last Admin: 10/14/18 17:34 Dose: 1 mg Memantine (Namenda) 5 mg PO DAILY [facility] Last Admin: 10/19/18 09:06 Dose: 5 mg Metoprolol Tartrate (Lopressor) 25 mg PO BID [facility] Last Admin: 10/19/18 09:57 Dose: 25 mg Rosuvastatin Calcium (Crestor) 5 mg PO HS [facility] Last Admin: 10/18/18 21:33 Dose: 5 mg Temazepam (Restoril) 15 mg PO HS [facility] Last Admin: 10/18/18 21:33 Dose: 15 mg - Labs Labs: 10/17/18 06:32 10/17/18 06:32 PT 16.8 SECONDS (9.7-12.2) H 10/14/18 00:41 INR 1.5 10/14/18 00:41 APTT 35 SECONDS (21-34) H 10/14/18 00:41
--- NOTE | 2018-10-19 14:09 | PN ---
DATE: 10/19/2018 SUBJECTIVE: The patient is seen with her daughter. The patient is feeling better, still has a steady gait. The patient is willing to go for subacute rehab. The patient's daughter confirms that the patient has been having anxiety problems at home, but according to the daughter, who lives in this apartment for 10 years, the noise is not as bad as what the patient is describing. The patient is looking for new apartment, but the daughter is having problems with her mother finding the right one. PHYSICAL EXAMINATION: VITAL SIGNS: Temperature is 97.6, pulse is 91, respiration is 20, oxygen saturation 96%, and BP is 117/79. REVIEW OF SYSTEMS: CONSTITUTIONAL: The patient is alert and oriented x3, seen in her room, not in acute respiratory distress. SKIN: No diaphoresis. HEENT: No headache. No dizziness. NECK: Supple. RESPIRATORY: No dyspnea. CARDIOVASCULAR: No chest pain. GASTROINTESTINAL: Gait is unsteady. MUSCULOSKELETAL: Feels weak. NEURO: Alert and oriented x3. GENITOURINARY: No dysuria. MENTAL STATUS EXAMINATION: Elderly female who looks stated her age. Alert and oriented x3. Mood is less anxious, somatic. Affect is reactive. Speech is spontaneous. Thought process is coherent. Thought content, no overt psychosis. No suicidal thought or ideation. The patient is willing to go for subacute rehab. Attention and memory seems to be fair. Insight and judgment is fair. Impulse control is fair. IMPRESSION: Anxiety disorder, not otherwise specified; mood disorder secondary to medical problems; history of atrial fibrillation improving; history of insomnia. PLAN AND RECOMMENDATION: The patient is seen. Meds reviewed. We will continue Ativan p.r.n. Restoril 30 mg at bedtime. Psych-piper, the patient is stable to go to subacute rehab for reconditioning once bed is available and once medially cleared. From the psych point, the patient is to continue present psych meds as ordered. Jose Rouse MD
--- NOTE | 2018-10-19 16:43 | RAD ---
PROCEDURE: Radiographs of the Left Shoulder HISTORY: pain on Left shoulder COMPARISON: No prior shoulder radiographs available for direct comparison. FINDINGS: BONES: Osseous demineralization limits evaluation for acute fracture lines. Suspect degenerative change/osseous proliferation rather than fracture fragment adjacent to the humeral head however this is suboptimally visualized on the provided views. The remainder the visualized osseous structures appear intact. The distal clavicle and underlying ribs appear intact. JOINTS: No acute dislocation. SOFT TISSUES: Soft tissues appear unremarkable. No evidence of radiopaque foreign body. Partially imaged cardiomegaly. Atherosclerotic calcification of the aorta. IMPRESSION: Osseous demineralization limits evaluation for acute fracture lines. Suspect degenerative change/osseous proliferation rather than fracture fragment adjacent to the humeral head however this is suboptimally visualized on the provided views. Correlate clinically. If high clinical index of suspicion for fracture, noncontrast CT of the left shoulder may be considered. Findings discussed with the patient's KOLBY Cleary on 10/19/18 at 4:36 p.m.
[2018-10-19] MEDS: Digoxin 125 mcg (0.125 mg) Tab PO SCH (17:32)
--- NOTE | 2018-10-19 20:47 | CP.PCM.PN ---
Subjective - Date & Time of Evaluation Date of Evaluation: 10/19/18 Time of Evaluation: 15:15 - Subjective Subjective: Patient was seen and examined Denies chest pain and dyspnea Physical Examination - Constitutional Appears: Well, No Acute Distress - Head Exam Head Exam: ATRAUMATIC, NORMAL INSPECTION - Eye Exam Eye Exam: EOMI, Normal appearance - ENT Exam ENT Exam: Mucous Membranes Moist - Respiratory Exam Respiratory Exam: Clear to Ausculation Bilateral, NORMAL BREATHING PATTERN. absent: Prolonged Expiratory Phase, Rhonchi, Wheezes - Cardiovascular Exam Cardiovascular Exam: REGULAR RHYTHM, +S1, +S2. absent: Murmur Additional comments: During the exam, patient was in NSR - GI/Abdominal Exam GI & Abdominal Exam: Soft, Normal Bowel Sounds. absent: Distended, Firm, Guarding, Rigid, Tenderness - Extremities Exam Extremities Exam: Normal Inspection. absent: Calf Tenderness, Pedal Edema - Neurological Exam Neurological Exam: Alert, Awake, Oriented x3 - Psychiatric Exam Psychiatric exam: Normal Affect, Normal Mood - Skin Skin Exam: Normal Color Assessment and Plan (1) Atrial fibrillation Assessment & Plan: Patient is a 72 year old female with past medical history of Anxiety, Arthritis, Depression, HTN, Hypercholesterolemia and atrial fibrillation, who had cardiac catherization over the course of admission, which showed Non Obstructive coronaries A Fib and CVA management MRI: Negative for CVA Awaiting [facility] placement Objective - Vital Signs/Intake and Output Vital Signs (last 24 hours): Temp Pulse Resp BP Pulse Ox 98.0 F 88 18 100/70 96 10/19/18 15:00 10/19/18 15:00 10/19/18 15:00 10/19/18 17:31 10/19/18 15:00 Intake and Output: 10/19/18 10/20/18 18:59 06:59 Intake Total 379 120 Balance 379 120 - Medications Medications: Current Medications Acetaminophen (Tylenol 325mg Tab) 650 mg PO Q6 PRN PRN Reason: Pain, moderate (4-7) Last Admin: 10/19/18 13:06 Dose: 650 mg Apixaban (Eliquis) 2.5 mg PO BID [facility] Last Admin: 10/19/18 17:32 Dose: 2.5 mg Aspirin (Ecotrin) 81 mg PO DAILY [facility] Last Admin: 10/19/18 09:57 Dose: 81 mg Calcium/Vitamin D (Oyster Shell Calcium/Vitamin D 500 Mg-200 Iu) 1 tab PO DAILY [facility] Last Admin: 10/19/18 10:02 Dose: 1 tab Digoxin (Digoxin) 0.125 mg PO DAILY@1800 [facility] Last Admin: 10/19/18 17:32 Dose: 0.125 mg Ergocalciferol (Drisdol 50,000 Intl Units Cap) 1 cap PO QWK [facility] Last Admin: 10/14/18 10:10 Dose: 1 cap Ceftriaxone Sodium (Rocephin Iv 1 Gm Duplex) 50 mls @ 100 mls/hr IVPB DAILY [facility]; Protocol Last Admin: 10/19/18 09:56 Dose: 100 mls/hr Lidocaine (Lidoderm) 1 ea TD DAILY [facility] Lorazepam (Ativan) 1 mg PO Q6H PRN PRN Reason: Anxiety Last Admin: 10/14/18 17:34 Dose: 1 mg Memantine (Namenda) 5 mg PO DAILY [facility] Last Admin: 10/19/18 09:06 Dose: 5 mg Metoprolol Tartrate (Lopressor) 25 mg PO BID [facility] Last Admin: 10/19/18 17:31 Dose: Not Given Rosuvastatin Calcium (Crestor) 5 mg PO HS [facility] Last Admin: 10/18/18 21:33 Dose: 5 mg Temazepam (Restoril) 15 mg PO HS [facility] Last Admin: 10/18/18 21:33 Dose: 15 mg - Labs Labs: 10/17/18 06:32 10/17/18 06:32 PT 16.8 SECONDS (9.7-12.2) H 10/14/18 00:41 INR 1.5 10/14/18 00:41 APTT 35 SECONDS (21-34) H 10/14/18 00:41
[2018-10-20 00:51] VITALS: RESP 20
--- NOTE | 2018-10-20 01:12 | PN ---
DATE: 10/19/2018SUBJECTIVE: The patient is seen and examined at bedside. The patient is complaining of left shoulder pain. Denies any history of fall or injury. She claims that she had prior history of intraarticular injections for pain. Denies any other new complaints. PHYSICAL EXAMINATION: GENERAL: Elderly female, lying in bed, in no acute distress. VITAL SIGNS: Blood pressure 100/70, pulse 88, respirations 18, temperature 98 degrees Fahrenheit, and O2 sat 96% on 2 L nasal cannula. HEENT: Pupils equal, round, and reacting to light and accommodation. Extraocular muscles intact. No icterus. No pallor. No oral thrush. No pharyngeal congestion. NECK: Supple. No JVD. LUNGS: Bilateral vesicular breath sounds. No wheezing. No rhonchi. CARDIOVASCULAR SYSTEM: S1 and S2 present, irregularly irregular. ABDOMEN: Soft, nontender. Bowel sounds present. No guarding. No rigidity. No rebound tenderness noted. CENTRAL NERVOUS SYSTEM: Alert, awake, oriented x3. No focal deficits noted. EXTREMITIES: Left upper extremity with near normal . No edema. MEDICATIONS: Include Tylenol as needed, Eliquis 2.5 mg p.o. b.i.d., Ecotrin 81 mg daily, Rocephin 1 g daily, digoxin 0.125 mg p.o. daily, vitamin D 50,000 every week, Lidoderm patch, Ativan as needed, Namenda 5 mg daily, metoprolol 25 mg p.o. b.i.d., Crestor 5 mg at bedtime, and Restoril 15 mg p.o. at bedtime. LABORATORY DATA: Shoulder x-ray done today shows osseous demineralization limits evaluation for acute fracture, degenerative changes, osseous proliferation. ASSESSMENT AND PLAN: An elderly female with hypertension, hyperlipidemia, dementia, osteoarthritis, osteoporosis, recurrent atrial fibrillation with rapid ventricular rate, admitted for atrial fibrillation with rapid ventricular rate, dizziness, and urinary tract infection. All the workup is negative so far. Now complaining of left shoulder pain, possibly secondary to osteoarthritis. X-ray results noted. We will obtain orthopedics consult. We will order CT of the left shoulder for possible subacute rehabilitation placement. Discussed with social services assistant. Merle Cuevas MD [facility] # [id number]
--- NOTE | 2018-10-20 06:45 | CON ---
DATE: 10/19/2018HISTORY OF PRESENT ILLNESS: The patient was admitted by Dr. Merle Cuevas with the diagnoses of congestive heart failure, atrial fibrillation, and chest pain. The patient is not a good historian. She did not give any history of trauma. She is complaining of pain in the left shoulder. The patient said she has a longstanding history of shoulder pain, and she says she did not receive any treatment so far. Examination reveals a patient who is not very communicative and complaining of pain in the left shoulder. Range of motion in the shoulder namely abduction, flexion, internal rotation restricted in the terminal 15 degrees. Tenderness over the anterior aspect of the shoulder noted. Impingement sign is moderately positive. Speed test is negative. Tenderness also noted over the acromioclavicular joint. X-rays of the left shoulder revealed severe osteoporosis, and no evidence of fractures is seen. DIAGNOSES: Rotator cuff tendinitis and adhesive capsulitis. PLAN: At this point, we will start the patient on physical therapy. 1. Therapy will include range of motion exercises. 2. Lidoderm patches to be applied up to 12 hours a day, and we will follow the patient. Jocelyn Wahl MD
[2018-10-20] MEDS: cefTRIAXone IV 1 gm in Dextros 50 ML IVPB SCH (09:15)
[2018-10-20] MEDS: Lidocaine 5% Patch TD SCH (09:17)
[2018-10-20] MEDS: Calcium-Vit D 500 mg-200 Units Tab UD PO SCH (09:17)
--- NOTE | 2018-10-20 15:10 | CP.PCM.PN ---
Subjective - Date & Time of Evaluation Date of Evaluation: 10/20/18 Time of Evaluation: 15:10 - Subjective Subjective: Progress note dictated #[id number] Objective - Vital Signs/Intake and Output Vital Signs (last 24 hours): Temp Pulse Resp BP Pulse Ox 98 F 85 20 112/72 95 10/20/18 07:35 10/20/18 07:35 10/20/18 07:35 10/20/18 09:16 10/20/18 07:35 Intake and Output: 10/20/18 10/20/18 06:59 18:59 Intake Total 320 Balance 320 - Medications Medications: Current Medications Acetaminophen (Tylenol 325mg Tab) 650 mg PO Q6 PRN PRN Reason: Pain, moderate (4-7) Last Admin: 10/19/18 13:06 Dose: 650 mg Apixaban (Eliquis) 2.5 mg PO BID [facility] Last Admin: 10/20/18 09:17 Dose: 2.5 mg Aspirin (Ecotrin) 81 mg PO DAILY [facility] Last Admin: 10/20/18 09:17 Dose: 81 mg Calcium/Vitamin D (Oyster Shell Calcium/Vitamin D 500 Mg-200 Iu) 1 tab PO DAILY [facility] Last Admin: 10/20/18 09:17 Dose: 1 tab Digoxin (Digoxin) 0.125 mg PO DAILY@1800 [facility] Last Admin: 10/19/18 17:32 Dose: 0.125 mg Ergocalciferol (Drisdol 50,000 Intl Units Cap) 1 cap PO QWK [facility] Last Admin: 10/14/18 10:10 Dose: 1 cap Ceftriaxone Sodium (Rocephin Iv 1 Gm Duplex) 50 mls @ 100 mls/hr IVPB DAILY [facility]; Protocol Last Admin: 10/20/18 09:15 Dose: 100 mls/hr Lidocaine (Lidoderm) 1 ea TD DAILY [facility] Last Admin: 10/20/18 09:17 Dose: 1 ea Lorazepam (Ativan) 1 mg PO Q6H PRN PRN Reason: Anxiety Last Admin: 10/14/18 17:34 Dose: 1 mg Memantine (Namenda) 5 mg PO DAILY [facility] Last Admin: 10/20/18 09:16 Dose: 5 mg Metoprolol Tartrate (Lopressor) 25 mg PO BID [facility] Last Admin: 10/20/18 09:16 Dose: 25 mg Rosuvastatin Calcium (Crestor) 5 mg PO HS [facility] Last Admin: 10/19/18 22:12 Dose: 5 mg Temazepam (Restoril) 15 mg PO HS [facility] Last Admin: 10/19/18 22:12 Dose: 15 mg - Labs Labs: 10/17/18 06:32 10/17/18 06:32 PT 16.8 SECONDS (9.7-12.2) H 10/14/18 00:41 INR 1.5 10/14/18 00:41 APTT 35 SECONDS (21-34) H 10/14/18 00:41
[2018-10-20 17:09] LABS: SQUAMOUS EPITHIAL 1 /hpf (0-5); URINE BACTERIA RARE (<OCC); URINE BILIRUBIN NEGATIVE (NEGATIVE); URINE CLARITY Clear (Clear); URINE COLOR Yellow (YELLOW); URINE GLUCOSE (UA) NORMAL (Normal); URINE LEUKOCYTE ESTERASE TRACE Leu/uL (Negative); URINE PROTEIN NEGATIVE (NEGATIVE)
[2018-10-20 17:11] LABS: URINE BLOOD 2+ (NEGATIVE)
[2018-10-20] MEDS: Digoxin 125 mcg (0.125 mg) Tab PO SCH (18:17)
--- NOTE | 2018-10-20 21:56 | PN ---
DATE: 10/20/2018 SUBJECTIVE: The patient was seen and examined at bedside. The patient offers no new complaints, anxious to be discharged. She wants to be discharged to her daughter's house. Denies any new complaints. PHYSICAL EXAMINATION GENERAL: Elderly female, lying in bed, in no acute distress. VITAL SIGNS: Blood pressure 111/74, pulse 74, respirations 20, temperature 98.5 degrees Fahrenheit, O2 sats 95% on room air. HEENT: Pupils equal, round and reacting to light and accommodation. Extraocular muscles intact. No icterus. No pallor. No oral thrush. No pharyngeal congestion. NECK: Supple. No JVD. LUNGS: Bilateral vesicular breath sounds. No wheezing. No rhonchi. CARDIOVASCULAR SYSTEM: S1 and S2 present, regular. ABDOMEN: Soft. Nontender. Bowel sounds present. No guarding. No rigidity. No rebound tenderness noted. CENTRAL NERVOUS SYSTEM: Alert, awake, oriented x3. No focal deficits noted. EXTREMITIES: No edema. Palpable peripheral pulses. MEDICATIONS: Include Tylenol as needed, Eliquis 2.5 mg p.o. b.i.d., aspirin 81 mg daily, Rocephin 1 g daily, digoxin 0.125 mg p.o. daily, vitamin D 50,000 units every week, Lidoderm patch, Ativan as needed, Namenda 5 mg daily, metoprolol 25 mg p.o. b.i.d., Crestor 5 mg p.o. at bedtime, Restoril 15 mg p.o. at bedtime. ASSESSMENT AND PLAN: An elderly female with hypertension, hyperlipidemia, anxiety, osteoarthritis, osteoporosis, dementia and recurrent atrial fibrillation, admitted for dizziness, recurrent atrial fibrillation with rapid ventricular rate and urinary tract infection. The patient's blood pressure is controlled, heart rate is controlled on current medication, will continue with current medication, waiting for subacute rehab placement. I left a message with the patient's daughter, waiting for her to call back to discuss with the patient's daughter regarding discharge planning. Merle Cuevas MD [facility] # [id number]
--- NOTE | 2018-10-21 06:37 | PN ---
DATE: 10/19/2018 TIME OF EVALUATION: 06:55 a.m. NEUROLOGICAL PROBLEM: Transient ischemic attack. PHYSICAL EXAMINATION: VITAL SIGNS: Blood pressure 96/63, mean arterial pressure of 74, respiratory rate 18, temperature afebrile. The patient is awake, ambulatory by using a cane. The patient seems to be better by herself. The weakness is also improving at present. She denies any new complaints. The patient's workup MRI shows multiple periventricular ischemic changes with atrophy. No acute ischemic process noted at present. The patient is tolerating Eliquis 5 mg twice a day. The patient has to have inhouse physical therapy and has to be followed as outpatient as well. The patient is neurologically cleared for discharge if medically stable. If any new changes from neurological point of view, please notify me. Savage Garcia MD
[2018-10-21] MEDS: Ergocalciferol 50,000 Intl Units Cap PO SCH (09:38)
[2018-10-21] MEDS: Lidocaine 5% Patch TD SCH (09:39)
[2018-10-21] MEDS: Calcium-Vit D 500 mg-200 Units Tab UD PO SCH (10:55)
[2018-10-21 12:32] LABS: BASO % 0.8 % (0.0-2.0); EOS # 0.2 K/uL (0.0-0.7); EOS % 3.5 % (0.0-4.0); HEMOGLOBIN 11.1 g/dL (11.0-16.0); LYMPH # 1.2 K/uL (1.0-4.3); LYMPH % 25.5 % (20.0-40.0); MEAN CELL VOLUME 90.2 fL (81.0-99.0); MEAN CORPUSCULAR HEMOGLOBIN 30.1 pg (27.0-31.0); MEAN CORPUSCULAR HGB CONC 33.4 g/dL (33.0-37.0); MEAN PLATELET VOLUME 9.7 fL (7.2-11.7); MONO # 0.3 K/uL (0.0-0.8); MONO % 7.1 % (0.0-10.0); NEUT % 63.1 % (50.0-75.0); NRBC % 0.1 % (0.0-2.0); RBC 3.68 Mil/uL (3.80-5.20); WHITE BLOOD COUNT 4.7 K/uL (4.8-10.8)
--- NOTE | 2018-10-21 12:58 | CP.PCM.PN ---
Subjective - Date & Time of Evaluation Date of Evaluation: 10/21/18 Time of Evaluation: 11:43 - Subjective Subjective: Discharge note dictated #[id number] Objective - Vital Signs/Intake and Output Vital Signs (last 24 hours): Temp Pulse Resp BP Pulse Ox 97.9 F 83 20 114/77 96 10/21/18 07:29 10/21/18 09:39 10/21/18 07:29 10/21/18 09:39 10/21/18 07:29 Intake and Output: 10/21/18 10/21/18 06:59 18:59 Intake Total 150 Balance 150 - Medications Medications: Current Medications Acetaminophen (Tylenol 325mg Tab) 650 mg PO Q6 PRN PRN Reason: Pain, moderate (4-7) Last Admin: 10/19/18 13:06 Dose: 650 mg Apixaban (Eliquis) 2.5 mg PO BID [facility] Last Admin: 10/21/18 09:38 Dose: 2.5 mg Aspirin (Ecotrin) 81 mg PO DAILY [facility] Last Admin: 10/21/18 09:38 Dose: 81 mg Calcium/Vitamin D (Oyster Shell Calcium/Vitamin D 500 Mg-200 Iu) 1 tab PO DAILY [facility] Last Admin: 10/20/18 09:17 Dose: 1 tab Digoxin (Digoxin) 0.125 mg PO DAILY@1800 [facility] Last Admin: 10/20/18 18:17 Dose: 0.125 mg Ergocalciferol (Drisdol 50,000 Intl Units Cap) 1 cap PO QWK [facility] Last Admin: 10/21/18 09:38 Dose: 1 cap Lidocaine (Lidoderm) 1 ea TD DAILY [facility] Last Admin: 10/21/18 09:39 Dose: 1 ea Lorazepam (Ativan) 1 mg PO Q6H PRN PRN Reason: Anxiety Last Admin: 10/14/18 17:34 Dose: 1 mg Memantine (Namenda) 5 mg PO DAILY [facility] Last Admin: 10/21/18 09:38 Dose: 5 mg Metoprolol Tartrate (Lopressor) 25 mg PO BID [facility] Last Admin: 10/21/18 09:38 Dose: 25 mg Rosuvastatin Calcium (Crestor) 5 mg PO HS [facility] Last Admin: 10/20/18 21:47 Dose: 5 mg Temazepam (Restoril) 15 mg PO HS [facility] Last Admin: 10/20/18 21:47 Dose: 15 mg - Labs Labs: 10/17/18 06:32 10/17/18 06:32 PT 16.8 SECONDS (9.7-12.2) H 10/14/18 00:41 INR 1.5 10/14/18 00:41 APTT 35 SECONDS (21-34) H 10/14/18 00:41
[2018-10-21 14:59] LABS: ALB/GLOB RATIO 1.1 (1.0-2.1); ALBUMIN 3.7 g/dL (3.5-5.0); ALT/SGPT 25 U/L (9-52); AST/SGOT 24 U/L (14-36); BLOOD UREA NITROGEN 14 mg/dL (7-17); CALCIUM 8.7 mg/dl (8.6-10.4); GFR NON-AFRICAN AMERICAN > 60
[2018-10-21 15:36] VITALS: BP 103/67; PULSE 82; TEMP 97.8; O2SAT 97
[2018-10-21] MEDS: Digoxin 125 mcg (0.125 mg) Tab PO SCH (17:31)
[2018-10-21 17:32] VITALS: PULSE 70
--- NOTE | 2018-10-22 03:47 | DS ---
DISCHARGE DIAGNOSES: Status post atrial fibrillation with rapid ventricular rate; dementia; dizziness, resolved; unsteady gait, improved; urinary tract infection; hypertension; hyperlipidemia; anxiety; insomnia; osteoarthritis; osteoporosis. HISTORY OF PRESENT ILLNESS: Ms. Freeman is a 73-year-old female with history of hypertension, hyperlipidemia, dementia, vertigo, osteoarthritis, osteoporosis, atrial fibrillation, status post cardiac catheterization with nonobstructive coronaries, status post failed cardioversion for atrial fibrillation. Had recent admission to the hospital for atrial fibrillation with rapid ventricular rate. The patient was evaluated by EP. The patient refused further workup at that time, brought in with complaints of palpitations. In the ED, the patient was found to be in AFib with rapid ventricular rate, and the patient is being admitted for further management. Today, the patient is feeling better. Denies any headache or dizziness. Denies any chest pain, shortness of breath or wheezing. Denies any nausea, vomiting, abdominal pain, diarrhea or constipation. Denies any urinary complaints. Denies leg pains or leg cramps. Denies any other neurologic symptoms. All other symptoms reviewed and were found to be negative. PHYSICAL EXAMINATION: GENERAL: Elderly female, lying in bed, in no acute distress. VITAL SIGNS: Blood pressure 114/77, pulse 83, respirations 20, temperature 97.8 degrees Fahrenheit, O2 sat 97% on room air. HEENT: Pupils equal, round and reacting to the light and accommodation. Extraocular muscles intact. No icterus. No pallor. No oral thrush. No pharyngeal congestion. NECK: Supple. No JVD. LUNGS: Bilateral vesicular breath sounds. No wheezing. No rhonchi. CARDIOVASCULAR SYSTEM: S1 and S2 present. Irregularly irregular. ABDOMEN: Soft. Nontender. Bowel sounds present. No guarding. No rigidity. No rebound tenderness noted. CENTRAL NERVOUS SYSTEM: Alert, awake, oriented x3. No focal deficits noted. EXTREMITIES: No edema. Palpable peripheral pulses. LABORATORY DATA: Labs done from today: WBC 4.7, hemoglobin 11.1, hematocrit 33.2, and platelets 250. Sodium 139, potassium 3.9, chloride 104, bicarb 27, BUN 14, creatinine 0.6, glucose 117, calcium 8.7. Total bilirubin 1, AST 24, ALT 25, alkaline phosphatase 68, total protein 6.9, albumin 3.7. UA has 2+ blood, urobilinogen 2, wbc's 6. Urine culture from 10/15/2018 consistent with E.coli, sensitive to Rocephin. Blood culture is negative. MRI of the brain negative. Left shoulder x-ray consistent with cellulitis. HOSPITAL COURSE: The patient was admitted to the hospital for AFib with ventricular rate. Her medications were adjusted. The patient was evaluated by Neurology and Cardiology. The patient had all the workup done, which was negative. The patient complained of left shoulder pain for which she was evaluated by Orthopedics. She was diagnosed with tendonitis, and she was given Lidoderm patches and pain medications . Physical therapy recommended. Initially, the patient was having unsteady gait, later she improved. Physical therapy recommended home physical therapy rather than rehab placement. The patient is otherwise hemodynamically stable and cleared by Cardiology and all the consultants. The patient is not accepted for subacute rehab. Discussed with the patient's daughter at length in detail regarding the discharge planning. The patient's daughter agrees with the discharge home to her house and advised the patient's daughter to make arrangements for followup with Cardiology and PMD and all the other consultants. The patient was also evaluated by Dr. Odell for sexologist who recommended either amiodarone or ablation, which the patient will be evaluated as an outpatient. Advised the patient to follow up with all the consultants. The patient was also evaluated by Psychiatry for her anxiety. The patient was given p.r.n. Ativan and Restoril at night and also advised the patient's daughter to follow up with Psychiatry for further psychiatric care. CONDITION UPON DISCHARGE: The patient is alert, awake, oriented x3 and hemodynamically stable at the time of discharge. DISCHARGE INSTRUCTIONS: Follow up with PMD. Follow up with Cardiology. Follow up with Neurology. Follow up with Orthopedics, outpatient physical therapy and occupational therapy. DISCHARGE MEDICATIONS: Metoprolol 25 mg p.o. b.i.d., Lidoderm patches, alendronate 150 mg monthly, digoxin 0.125 mg daily, Eliquis 2.5 mg p.o. b.i.d., Namenda 5 mg daily, vitamin D 50,000 units weekly, Lipitor 10 mg daily, and aspirin 81 mg daily. DISCHARGE DIET: Heart healthy, low sodium, low cholesterol diet. ACTIVITY: As tolerated and the patient's daughter to make arrangements for outpatient physical therapy. Merle Cuevas MD
== END 2018-10-21 18:54 | disposition home or self-care (01) | DRG 309 ==
LOC: C.ER 23:13 → C.9E 10-14 02:22 → C.5S 10-14 04:13
PROVIDERS: ADMIT Internal Medicine; ATTEND Internal Medicine
DX: I48.91 Unspecified atrial fibrillation (principal); G45.0 Vertebro-basilar artery syndrome; R17 Unspecified jaundice; F41.9 Anxiety disorder, unspecified; I11.0 Hypertensive heart disease with heart failure; I42.9 Cardiomyopathy, unspecified; Z87.891 Personal history of nicotine dependence; Z79.01 Long term (current) use of anticoagulants; Z80.0 Family history of malignant neoplasm of digestive organs; Z82.49 Family history of ischemic heart disease and other diseases of the circulatory system; E78.00 Pure hypercholesterolemia, unspecified; E78.5 Hyperlipidemia, unspecified; F03.90 Unspecified dementia, unspecified severity, without behavioral disturbance, psychotic disturbance, mood disturbance, and anxiety; F39 Unspecified mood [affective] disorder; G47.00 Insomnia, unspecified; G62.9 Polyneuropathy, unspecified; I25.10 Atherosclerotic heart disease of native coronary artery without angina pectoris; I42.0 Dilated cardiomyopathy; I50.9 Heart failure, unspecified; M19.90 Unspecified osteoarthritis, unspecified site; M51.9 Unspecified thoracic, thoracolumbar and lumbosacral intervertebral disc disorder; M81.0 Age-related osteoporosis without current pathological fracture

== ENCOUNTER 2019-02-24 11:57 | Outpatient (CLI) | payer MEDICARE, MEDICAID | END 2019-02-24 11:58 | disposition home or self-care (01) | LOC: C.RADH 11:57 | DX: M53.3 Sacrococcygeal disorders, not elsewhere classified (principal) ==